=== PATIENT | female | born 1970 | race Caucasian/White ===

== ENCOUNTER 2017-01-01 06:35 | Day surgery (SDC) | payer OTHER ==
[2017-01-01 07:19] VITALS: TEMP 98.6
[2017-01-01] MEDS ORDERED: LIDOCAINE 1% 20 ML VIAL (10MG/ML) FOR IV START INTRADERMA ONE (07:21)
[2017-01-01] MEDS ORDERED: LACTATED RINGERS 1,000 ML IV ONE (07:22)
[2017-01-01 07:34] VITALS: BMI 24.3
[2017-01-01] MEDS ORDERED: MIDAZOLAM 2 MG/2 ML VIAL IV ONE (07:40)
[2017-01-01] MEDS ORDERED: PROPOFOL 10 MG/ML 20 ML VIAL IV ONE (09:03)
[2017-01-01] MEDS ORDERED: LIDOCAINE 1% INJ 10MG/ML (20 ML MDV) ONE (09:03)
--- NOTE | 2017-01-01 09:48 | P.PCN ---
Date of Procedure: 01/01/17 Procedure(s) Performed: Procedure: 1. Esophagogastroduodenoscopy and biopsy. 2. Colonoscopy and biopsy. Preoperative diagnosis: Abdominal pain, change in bowel habits, nausea and bloating and abnormal CT of the abdomen. Postoperative diagnosis: 1. Small sliding hiatal hernia with no obvious esophagitis or complicated reflux disease. 2. Mild antral gastritis. 3. Normal colon and terminal ileum. Preparation: HalfLytely prep. Sedation: Was provided by anesthesia. Brief clinical history: The patient is a 56-year-old female who was evaluated in the office recently by Dr. Tsai for lower abdominal pain and bloating of 1- 2 months duration. The patient was in the emergency room and had a CT of the abdomen and pelvis that showed mild thickening of the colon as well as kidney stones. She was advised to follow-up in the GI office as well as urology. She has occasional diarrhea with 3-4 bowel movements per day and some weight loss. More recently, prior to that office visit, she was having nausea after she eats in addition to intense and worsening pain. The patient had no prior EGD or colonoscopy. This evaluation is scheduled to assess for peptic ulcer disease, celiac disease, inflammatory bowel disease, neoplasia or other pathology. Procedure: With the patient on her left lateral decubitus position and after informed consent and adequate sedation, I passed the Olympus-GIF 160 video upper endoscope through the cricopharyngeus down the esophagus. GE junction was around 38 cm from the incisors and there was a small sliding hiatal hernia. The endoscope was then passed into the stomach which was insufflated with air and inspected in detail including the retroflex view in the cardia. There was some mottling and erythema in the antrum but no ulcers or erosions. Pyloric channel, duodenal bulb, post bulbar area and descending duodenum appeared within normal limits. Because of her symptoms, I obtained multiple biopsies from the duodenum in addition to biopsies from the antrum and esophagus then the endoscope was withdrawn and I proceeded to do colonoscopy. Perianal area did not show any fissures or fistulas. There were no masses felt on digital rectal examination. The Olympus CFQ 160 L video colonoscope was then inserted in the rectum in the usual fashion and advanced to the cecum. I intubated the ileocecal valve and examined the terminal ileum. Terminal ileum and colon appeared healthy with no edema, erythema, friability, ulceration, exudation or spontaneous bleeding. No polyps or tumors were seen or any obvious diverticular disease. I obtained biopsies from the terminal ileum and randomly from the colon then I retroflexed endoscope in the rectum before the endoscope was withdrawn. The patient tolerated the procedure well. Plan: The patient was reassured. Will await pathology results. She will follow -up in the office as planned and we will make additional recommendations based on her course and biopsy results. Would keep you updated on her progress.
[2017-01-01 10:17] VITALS: BP 116/93; PULSE 83; RESP 18
== END 2017-01-01 10:46 | disposition home or self-care (01) ==
LOC: ORWHC2ENDO 06:35
DX: K29.50 Unspecified chronic gastritis without bleeding (principal); K44.9 Diaphragmatic hernia without obstruction or gangrene; R19.7 Diarrhea, unspecified; N20.0 Calculus of kidney; R56.9 Unspecified convulsions; G89.29 Other chronic pain; M54.9 Dorsalgia, unspecified; Z79.1 Long term (current) use of non-steroidal anti-inflammatories (NSAID); Z79.891 Long term (current) use of opiate analgesic; Z79.899 Other long term (current) drug therapy
CPT/HCPCS: 88305; 88342; 45380; 43239; J2250; J2001; J2704

== ENCOUNTER → 2017-01-09 | Outpatient (CLI) | payer OTHER ==
--- NOTE | 2017-01-09 13:16 | XR ---
EXAMINATION TYPE: XR KUB DATE OF EXAM: 01/09/2017 12:27 PM HISTORY: Left flank pain Comparison: 12/21/2016 CT abdomen pelvis Single KUB is submitted for interpretation. Findings: Right renal calculi: None Visualized. Right ureteral calculi: None Visualized. Left renal calculi: 4 mm calculus seen on recent CT is not well visualized possibly related to overl orlin bowel content. Left ureteral calculi: None Visualized. Pelvic calcifications: Multiple pelvic calcifications felt to be compatible with phlebolith formatio n. Bowel gas pattern is unremarkable. No free air. No mass effects. IMPRESSION: 1. No definite renal or ureteral calculus appreciated at this time.
== END ==
LOC: RADXRMAIN 12:09
PROVIDERS: ATTEND Urology
DX: N20.0 Calculus of kidney (principal)
CPT/HCPCS: 74000

== ENCOUNTER 2017-08-10 07:02 | Day surgery (SDC) | payer OTHER ==
[2017-08-09 09:04] VITALS: BMI 27.4
[~2017-08-10 07:02] MED LIST: DEXAMETHASONE SOD PHOSPHATE 10 MG/ML 1 ML VIAL IV ONE; HYDROmorphone 1 MG/ML 1 ML SYRINGE IVP PRN; LACTATED RINGERS 1,000 ML IV SCH; MIDAZOLAM 2 MG/2 ML VIAL IV PRN; ONDANSETRON 4 MG/2 ML VIAL IVP ONE; SCOPOLAMINE 1.5MG/72HR PATCH TRANSDERM ONE; ceFAZolin 1,000 MG in DEXTROSE/WATER 1 50ML.BAG IV ONE
[2017-08-10] MEDS ORDERED: LIDOCAINE 1% 20 ML VIAL (10MG/ML) FOR IV START INTRADERMA ONE (07:34)
[2017-08-10] MEDS ORDERED: SUCCINYLCHOLINE CHLORIDE 100 MG/5 ML SYR IV ONE (08:40)
[2017-08-10] MEDS ORDERED: PROPOFOL 10 MG/ML 20 ML VIAL IV ONE (08:40)
[2017-08-10] MEDS ORDERED: LIDOCAINE 1% INJ 10MG/ML (20 ML MDV) ONE (08:40)
[2017-08-10] MEDS ORDERED: fentaNYL (PF) 50 MCG/ML 2 ML AMP ONE (08:40)
[2017-08-10 10:05] VITALS: TEMP 97.6
[2017-08-10] MEDS ORDERED: MEPERIDINE 50 MG/ML SYRINGE IVP ONE ×2 (10:06→10:32)
--- NOTE | 2017-08-10 10:16 | P.OP ---
Date of Procedure: 08/10/17 Preoperative Diagnosis: Left Renal Calculi Postoperative Diagnosis: Same Procedure(s) Performed: Cystoscopy, left ureteroscopy with stone basketing, left ureteral stent insertion Anesthesia: RUTHA Surgeon: Cipriano Goldstein Estimated Blood Loss (ml): 0 IV fluids (ml): 650 Pathology: none sent Condition: stable Disposition: PACU Indications for Procedure: She is a 47-year-old woman with lumbar disc disease, who previously underwent a spinal fusion. She presented with a three-month history of left flank pain, radiating to the left abdomen. A CT scan showed a 4 mm nonobstructing left renal calculus. I advised her that this is unlikely to be the cause of her pain , though this cannot be determined with certainty. She underwent ureteroscopic removal of the calculus, but she presents back with left flank pain. A CT scan shows several very small left lower pole renal calculi. She will undergo ureteroscopic removal of these calculi, but she clearly understands that this may not be the source of her pain. Operative Findings: Four small left lower pole renal calculi, all removed intact. Description of Procedure: The patient was taken to the operating room and placed in the dorsolithotomy position, with legs supported in Bennie stirrups. The external genitalia was prepped and draped sterilely. The 30 lens was used to introduce the 19-Cameroonian Stortz cystoscopic sheath through the urethra and into the bladder under direct vision. The bladder was examined in its entirety. Both ureteral orifices were normal anatomic location and configuration, and clear urine effluxed from both. The entire bladder was examined. No tumors or foreign bodies were seen. A 0.038 inch Glidewire was passed through the cystoscope. The left ureteral orifice was cannulated, and the Glidewire was advanced up to the left renal pelvis. An 11/13-Cam[place]onian ureteral access catheter was passed over the wire, up to the proximal ureter. The mini flexible ureteroscope was passed through the ureteral access catheter sheath and into the left renal pelvis. Each calyx was examined. Within a lower pole calyx, several small calculi were seen. Using a 1.9-Cam[place]onian parachute basket, each of these small calculi were individually basketed and removed. In total, 4 calculi were removed, the largest measuring approximately 2-3 mm in diameter. In the course of performing this procedure, a mucosal tear was noted within the proximal ureter, distal to the UPJ. It was felt that this was due to the ureteral access catheter sheath. It was obvious that this was not a transmural perforation. Once the calculi were removed, each calyx was examined and no additional calculi were seen. The Glidewire was passed through the ureteroscope into an upper pole calyx. The ureteroscope was withdrawn, along with the ureteral access catheter sheath, and the Glidewire was backloaded into the cystoscope, which was passed into the bladder. A 24 cm , 6-Cameroonian double-J ureteral stent was placed over the wire. Proper stent positioning was verified fluoroscopically and endoscopically. The bladder was emptied and the cystoscope removed. The patient tolerated the procedure well and was taken to the recovery room in stable condition.
[2017-08-10] MEDS ORDERED: ONDANSETRON 4 MG/2 ML VIAL IVP ONE (10:21)
--- NOTE | 2017-08-10 10:21 | FL ---
Fluoroscopy HISTORY: Cystoscopy, kidney stone, stent insertion 28 seconds fluoroscopy time supplied to the referring clinician. 2 intraoperative C-arm images docum ent the procedure. See dictated report from urology.
[2017-08-10] MEDS ORDERED: LACTATED RINGERS 1,000 ML IV ONE (10:39)
[2017-08-10 10:50] VITALS: RESP 18
[2017-08-10] MEDS ORDERED: HYDROcodone/APAP 5-325MG 1 EACH TAB PO ONE (11:12)
[2017-08-10 11:25] VITALS: BP 100/62; PULSE 79
== END 2017-08-10 12:00 | disposition home or self-care (01) ==
LOC: OR 07:02
PROVIDERS: ATTEND Urology
DX: N20.0 Calculus of kidney (principal); N99.71 Accidental puncture and laceration of a genitourinary system organ or structure during a genitourinary system procedure; F17.200 Nicotine dependence, unspecified, uncomplicated; Z79.891 Long term (current) use of opiate analgesic; Z79.899 Other long term (current) drug therapy; Z98.1 Arthrodesis status; Z98.51 Tubal ligation status; Z90.710 Acquired absence of both cervix and uterus; Z84.1 Family history of disorders of kidney and ureter; Z80.1 Family history of malignant neoplasm of trachea, bronchus and lung; Y65.8 Other specified misadventures during surgical and medical care
CPT/HCPCS: 52352; 52332; C2625; C1769; J1100; J2175; J2405; J2001; J3010; J0690; J0330; J2704

== ENCOUNTER 2017-08-11 10:49 | Observation (INO) | payer OTHER ==
[2017-08-11] MEDS ORDERED: SODIUM CHLORIDE 0.9% 500 ML IV STA (11:09)
[2017-08-11] MEDS ORDERED: KETOROLAC 30 MG/ML 1 ML VIAL IVP STA (11:09)
[2017-08-11] MEDS ORDERED: HYDROmorphone 1 MG/ML 1 ML SYRINGE IVP STA (11:09)
[2017-08-11] MEDS ORDERED: RX INFO: IV CONTRAST WAS GIVEN 1 EACH MISC MISCELLANE PRN (11:09)
--- NOTE | 2017-08-11 11:14 | ED ---
General Adult HPI - General Chief complaint: Abdominal Pain Stated complaint: Abd Pain Time Seen by Provider: 08/11/17 10:50 Source: patient, EMS, RN notes reviewed Mode of arrival: EMS - History of Present Illness Initial comments: This is a 47-year-old female who presents emergency department after having had a procedure yesterday which involved her moving for kidney stones and placing a stent. Patient states that the urologist that did this to Dr. Carrion told her that the ureter was perforated. Patient states when she got home she stated the pain has been excruciating ever since she could no longer tolerate it so she came back to the emergency department. Patient denies any fever or chills. Patient states her abdomen is extremely tender whereas normally is not with her kidney stones. Patient denies any vomiting or diarrhea but she is mildly nauseated. Patient denies any chest pain or difficulty breathing. Patient denies any other symptoms at this time. - Related Data Home Medications Medication Instructions Recorded Confirmed Pregabalin [Lyrica] 50 mg PO BID PRN 07/13/17 08/11/17 clonazePAM [KlonoPIN] 0.5 mg PO TID 07/13/17 08/11/17 Hydrocodone/Acetaminophen [[place] 1 - 2 tab PO Q4HR PRN 08/11/17 08/11/17 5-325] Mirtazapine 30 mg PO HS 08/11/17 08/11/17 Allergies Allergy/AdvReac Type Severity Reaction Status Date / Time No Known Allergies Allergy Verified 08/11/17 12:16 Review of Systems ROS Statement: Those systems with pertinent positive or pertinent negative responses have been documented in the HPI. ROS Other: All systems not noted in ROS Statement are negative. Past Medical History Past Medical History: Neurologic Disorder, Renal Disease, Seizure Disorder Additional Past Medical History / Comment(s): Hx vertigo and gait disorder in 2002, hx lower back, neck and shoulder pain, HERNIATED DISCS, HEADACHES-PAIN SHOOTS UP NECK AND INTO SHOULDER BLADES. No seizures in 4 yrs, hx of kidney problems and current KIDNEY STONES. History of Any Multi-Drug Resistant Organisms: None Reported Date of last positivie culture/infection: 2009 MDRO Source:: boil on back of left leg Past Surgical History: Back Surgery, Section, Hysterectomy, Tubal Ligation Additional Past Surgical History / Comment(s): Hx ectopic rupture left ovary and fallopian tube removed, 2 spinal fusions, herniated bowel repair during spine surgery, cervical fusion, urology procedure for kidney problems. Past Anesthesia/Blood Transfusion Reactions: Motion Sickness, Postoperative Nausea & Vomiting (PONV) Additional Past Anesthesia/Blood Transfusion Reaction / Comment(s): Quite extensive N&V with last proceudre that lasted for a few days. Past Psychological History: Anxiety, Depression Smoking Status: Current every day smoker Past Alcohol Use History: None Reported Past Drug Use History: None Reported - Past Family History Mother Family Medical History: Hyperlipidemia Father Family Medical History: Cancer Additional Family Medical History / Comment(s): Father from lung ca 1988 General Exam - General Exam Comments Initial Comments: GENERAL: Patient is well-developed and well-nourished. Patient is nontoxic and well- hydrated and is in moderate distress ENT: Neck is soft and supple. No significant lymphadenopathy is noted. Oropharynx is clear. Moist mucous membranes. Neck has full range of motion without eliciting any pain. T EYES: The sclera were anicteric and conjunctiva were pink and moist. Extraocular movements were intact and pupils were equal round and reactive to light. Eyelids were unremarkable. PULMONARY: Unlabored respirations. Good breath sounds bilaterally. No audible rales rhonchi or wheezing was noted. CARDIOVASCULAR: There is a regular rate and rhythm without any murmurs gallops or rubs. ABDOMEN: Soft and nontender with normal bowel sounds. No palpable organomegaly was noted. There is no palpable pulsatile mass. SKIN: Skin is clear with no lesions or rashes and otherwise unremarkable. NEUROLOGIC: Patient is alert and oriented x3. Cranial nerves II through XII are grossly intact. Motor and sensory are also intact. Normal speech, volume and content. Symmetrical smile. MUSCULOSKELETAL: Normal extremities with adequate strength and full range of motion. LYMPHATICS: No significant lymphadenopathy is noted PSYCHIATRIC: Normal psychiatric evaluation. Course Vital Signs 08/11/17 08/11/17 08/11/17 10:51 11:57 13:00 Temperature 99.1 F 98.7 F Pulse Rate 108 H 62 84 Respiratory 20 18 17 Rate Blood Pressure 138/65 104/55 90/53 O2 Sat by Pulse 93 L 99 97 Oximetry Medical Decision Making - Medical Decision Making I spoke with Dr. Daugherty he agreed to admit the patient for pain control Computed tomography scan showed fluid around the left kidney as well as in the pericolic gutter. Patient continued to be in a fair amount of pain and didn't feel so she can go home. - Lab Data Result diagrams: 08/11/17 11:08/11/17 11:22 Lab Results 08/11/17 08/11/17 08/11/17 Range/Units 11: 11: 12:00 WBC 19.1 H (3.8-10.6) k/uL RBC 4.13 (3.80-5.40) m/uL Hgb 14.0 (11.4-16.0) gm/dL Hct 43.0 (34.0-46.0) % MCV 104.1 H (80.0-100.0) fL MCH 33.8 (25.0-35.0) pg MCHC 32.5 (31.0-37.0) g/dL RDW 13.6 (11.5-15.5) % Plt Count 191 (150-450) k/uL Neutrophils % 87 % Lymphocytes % 7 % Monocytes % 4 % Eosinophils % 1 % Basophils % 0 % Neutrophils # 16.7 H (1.3-7.7) k/uL Lymphocytes # 1.4 (1.0-4.8) k/uL Monocytes # 0.7 (0-1.0) k/uL Eosinophils # 0.2 (0-0.7) k/uL Basophils # 0.0 (0-0.2) k/uL Macrocytosis Slight Sodium 137 (137-145) mmol/L Potassium 4.0 (3.5-5.1) mmol/L Chloride 104 (98-107) mmol/L Carbon Dioxide 26 (22-30) mmol/L Anion Gap 7 mmol/L BUN 12 (7-17) mg/dL Creatinine 1.20 H (0.52-1.04) mg/dL Est GFR (MDRD) Af Amer 59 (>60 ml/min/1.73 sqM) Est GFR (MDRD) Non-Af 48 (>60 ml/min/1.73 sqM) Glucose 111 H (74-99) mg/dL Calcium 9.3 (8.4-10.2) mg/dL Total Bilirubin 0.6 (0.2-1.3) mg/dL AST 16 (14-36) U/L ALT 30 (9-52) U/L Alkaline Phosphatase 46 (38-126) U/L Total Protein 6.9 (6.3-8.2) g/dL Albumin 4.1 (3.5-5.0) g/dL Amylase <30 L (30-110) U/L Lipase 42 (23-300) U/L Urine Color Yellow Urine Appearance Cloudy H (Clear) Urine pH 5.5 (5.0-8.0) Ur Specific [place] 1.020 (1.001-1.035) Urine Protein Trace H (Negative) Urine Glucose (UA) Negative (Negative) Urine Ketones Negative (Negative) Urine Blood Moderate H (Negative) Urine Nitrite Negative (Negative) Urine Bilirubin Negative (Negative) Urine Urobilinogen <2.0 (<2.0) mg/dL Ur Leukocyte Esterase Moderate H (Negative) Urine RBC 37 H (0-5) /hpf Urine WBC 12 H (0-5) /hpf Ur Squamous Epith Cells 6 H (0-4) /hpf Urine Bacteria Rare H (None) /hpf Urine Mucus Rare H (None) /hpf Disposition Clinical Impression: Intractable pain, Intra-abdominal fluid Disposition: ADMITTED IP TO THIS HOSP Referrals: Zach Washington MD [Primary Care Provider] - 1-2 days Time of Disposition: 13:39
[2017-08-11 11:32] LABS: Basophils % (A) 0 %; CH 33.8; CHCM 32.6; Eosinophils # (A) 0.2 k/uL (0-0.7); Eosinophils % (A) 1 %; HDW 2.02; Luc # (Auto) 0.09; Luc % (Auto) 1; Lymphocytes # (A) 1.4 k/uL (1.0-4.8); Lymphocytes % (A) 7 %; MCH 33.8 pg (25.0-35.0); MCHC 32.5 g/dL (31.0-37.0); MCV 104.1 fL (80.0-100.0); Macrocytosis Slight; Mean Platelet Volume 7.5; Monocytes # (A) 0.7 k/uL (0-1.0); Monocytes % (A) 4 %; Neutrophils # (A) 16.7 k/uL (1.3-7.7); Neutrophils % (A) 87 %; RBC 4.13 m/uL (3.80-5.40); RDW 13.6 % (11.5-15.5); WBC 19.1 k/uL (3.8-10.6); WBC (Perox) 19.23
[2017-08-11] MEDS ORDERED: ONDANSETRON 4 MG/2 ML VIAL IVP STA (11:42)
[2017-08-11 11:45] LABS: ALT 30 U/L (9-52); AST 16 U/L (14-36); Alkaline Phosphatase 46 U/L (38-126); Amylase <30 U/L (30-110); Anion Gap 7 mmol/L; Blood Urea Nitrogen 12 mg/dL (7-17); Calcium 9.3 mg/dL (8.4-10.2); Carbon Dioxide 26 mmol/L (22-30); Chloride 104 mmol/L (98-107); Glucose 111 mg/dL (74-99); Non-African American GFR(MDRD) 48 (>60 ml/min/1.73 sqM); Sodium 137 mmol/L (137-145); Total Bilirubin 0.6 mg/dL (0.2-1.3); Total Protein 6.9 g/dL (6.3-8.2)
[2017-08-11 12:18] LABS: Appearance,Urine Cloudy (Clear); Bacteria,Urine Rare /hpf; Bilirubin,Urine Negative (Negative); Glucose,Urine (UA) Negative (Negative); Ketones,Urine Negative (Negative); Leukocyte Esterase,Urine Moderate (Negative); Mucus,Urine Rare /hpf; Nitrite,Urine Negative (Negative); PH, Urine 5.5 (5.0-8.0); Particle Count 3484; Protein,Urine Trace (Negative); RBC,Urine 37 /hpf (0-5); Squamous Epithelial Cell,Urine 6 /hpf (0-4); UA Billing (MACRO vs. MICRO) MICRO; Urobilinogen,Urine <2.0 mg/dL (<2.0); WBC,Urine 12 /hpf (0-5)
--- NOTE | 2017-08-11 12:45 | CT ---
EXAMINATION TYPE: CT abdomen pelvis w con DATE OF EXAM: 08/11/2017 REFERENCE: Previous study dated 07/14/1970. HISTORY: abdominal pain HISTORY: Abdomen Pain REFERENCE: NONE CT DLP: 794.2 mGy Automated exposure control for dose reduction was used. TECHNIQUE: Helical acquisition through the abdomen and pelvis was obtained following the oral ingesti on of without Oral Contrast and following intravenous administration of 80 mL of Visipaque 320. The d santiago was reformatted in axial, coronal and sagittal projections. FINDINGS: There is minimal atelectasis at the left lung base. There is no pleural or pericardial flu id. The heart is not enlarged. Within the abdomen, the liver is prominent measuring 19.3 cm. This is largely due to a prominent Ried el's lobe. The spleen and gallbladder are normal. Both adrenal glands are normal. The right kidney is normal. There is a double-J stent in place on the left. There is marked inflammat ory change as well as perinephric fluid about the left kidney and extending down the left paracolic g utter. The kidney does demonstrate normal function. The pancreas appears unremarkable. There is no significant retroperitoneal, iliac or inguinal adenopathy. The bladder is collapsed. The uterus and ovaries are not visualized. There is a moderate amount of fr ee fluid within the pelvis. There is no significant diverticular change noted do not see radiographic evidence of diverticulitis. The appendix is not visualized with certainty. Small bowel loops are of normal caliber. No free air is seen. There is been a previous anterior fusion at L5-S1. No bony destructive lesion is seen. IMPRESSION: MODERATE EDEMATOUS CHANGE AND FREE FLUID ABOUT THE LEFT KIDNEY WITH FLUID ALSO TRACKING D OWN THE PARACOLIC GUTTER ON THE LEFT INTO THE PELVIS. 2. DOUBLE-J STENTS IN NORMAL POSITION. 3. MILD PROMINENCE OF THE LIVER. 4. POSTSURGICAL CHANGES WITHIN THE SPINE.
[2017-08-11] MEDS ORDERED: SODIUM CHLORIDE 0.9% 1,000 ML IV ONE (13:39)
[2017-08-11] MEDS ORDERED: CIPROFLOXACIN HCL 500 MG TAB PO STA (13:42)
[2017-08-11 14:57] VITALS: BMI 27.4
[2017-08-11] MEDS ORDERED: PREGABALIN 50 MG CAP PO PRN (15:54)
[2017-08-11] MEDS: clonazePAM 0.5 MG TAB PO SCH ×2 (16:34→20:19)
[2017-08-11] MEDS: KETOROLAC 30 MG/ML 1 ML VIAL IVP SCH (17:40)
[2017-08-11] MEDS: HYDROmorphone 1 MG/ML 1 ML SYRINGE IVP PRN (20:20)
[2017-08-11] MEDS ORDERED: MIRTAZAPINE 15 MG TAB PO SCH (21:00)
[2017-08-11] MEDS: CIPROFLOXACIN HCL 500 MG TAB PO SCH (22:18)
[2017-08-12] MEDS: KETOROLAC 30 MG/ML 1 ML VIAL IVP SCH ×3 (03:02→12:23)
[2017-08-12] MEDS: HYDROmorphone 1 MG/ML 1 ML SYRINGE IVP PRN (05:12)
[2017-08-12 08:12] VITALS: BP 98/53; PULSE 88; RESP 16; TEMP 98
[2017-08-12] MEDS: clonazePAM 0.5 MG TAB PO SCH (08:28)
[2017-08-12] MEDS: CIPROFLOXACIN HCL 500 MG TAB PO SCH (09:22)
[2017-08-12] MEDS ORDERED: HYDROcodone/APAP 7.5-325MG 1 EACH TAB PO PRN (10:19)
--- NOTE | 2017-08-12 10:23 | P.GSHP ---
History of Present Illness H&P Date: 08/12/17 The patient is a 47-year-old female who underwent cystoscopy left ureteroscopy with laser lithotripsy to ureteral stones late last week by . Apparently there was a ureteral perforation. This however was managed with a stent which is the usual mechanism to handle this situation. She came into the emergency room with abdominal discomfort. She had a computed tomography scan that identified periureteral perirenal and pericolic gutter fluid. Because of abdominal discomfort and an elevated white count was elected to place her in the hospital for observation. He is afebrile. Her vital signs are otherwise stable. - Gastrointestinal Gastrointestinal: Reports abdominal pain, Reports bloating - Genitourinary (Female) Genitourinary: Reports as per HPI - Musculoskeletal Musculoskeletal: Reports low back pain Past Medical History Past Medical History: Neurologic Disorder, Renal Disease, Seizure Disorder Additional Past Medical History / Comment(s): Hx vertigo and gait disorder in 2002, hx lower back, neck and shoulder pain, HERNIATED DISCS, HEADACHES-PAIN SHOOTS UP NECK AND INTO SHOULDER BLADES. No seizures in 4 yrs, hx of kidney problems and KIDNEY STONES. History of Any Multi-Drug Resistant Organisms: None Reported Date of last positivie culture/infection: 2009 MDRO Source:: boil on back of left leg Past Surgical History: Back Surgery, Section, Hysterectomy, Tubal Ligation Additional Past Surgical History / Comment(s): Hx ectopic rupture left ovary and fallopian tube removed, 2 spinal fusions, herniated bowel repair during spine surgery, cervical fusion, urology procedure for kidney problems. Past Anesthesia/Blood Transfusion Reactions: Motion Sickness, Postoperative Nausea & Vomiting (PONV) Additional Past Anesthesia/Blood Transfusion Reaction / Comment(s): Quite extensive N&V with last proceudre that lasted for a few days. Past Psychological History: Anxiety, Depression Smoking Status: Current some day smoker Past Alcohol Use History: None Reported Additional Past Alcohol Use History / Comment(s): Has smoked 1/4 PPD or less on and off since 2000. Past Drug Use History: None Reported Additional Drug Use History / Comment(s): Medical marijuana- quit using 04/05/16 was only using liquid or caplet or lotion that was applied to where it hurt.pt has never has smoked it. - Past Family History Mother Family Medical History: Hyperlipidemia Father Family Medical History: Cancer Additional Family Medical History / Comment(s): Father from lung ca 1988 Medications and Allergies Home Medications Medication Instructions Recorded Confirmed Type Pregabalin [Lyrica] 50 mg PO BID PRN 07/13/17 08/11/17 History clonazePAM [KlonoPIN] 0.5 mg PO TID 07/13/17 08/11/17 History Hydrocodone/Acetaminophen [[place] 1 - 2 tab PO Q4HR PRN 08/11/17 08/11/17 History 5-325] Mirtazapine 30 mg PO HS 08/11/17 08/11/17 History Hydrocodone/Acetaminophen [[place] 1 each PO Q4HR PRN #20 tab 08/12/17 Rx 7.5-325] Allergies Allergy/AdvReac Type Severity Reaction Status Date / Time No Known Allergies Allergy Verified 08/11/17 12:16 Surgical - Exam Vital Signs Temp Pulse Resp BP Pulse Ox 99.1 F 108 H 20 138/65 93 L 08/11/17 10:51 08/11/17 10:51 08/11/17 10:51 08/11/17 10:51 08/11/17 10:51 - General well developed, well nourished, moderate pain - Eyes PERRL - ENT no hearing loss - Neck trachea midline - Respiratory normal expansion - Cardiovascular Rhythm: regular - Abdomen The patient has some abdominal distention due to an ileus Abdomen: tender - Integumentary no rash, no growths - Neurologic normal coordination - Musculoskeletal normal posture - Psychiatric oriented to time, oriented to person, oriented to place, speech is normal, memory intact Results - Labs 08/11/17 11:22 08/11/17 11:22 Abnormal Lab Results - Last 24 Hours (Table) 08/11/17 08/11/17 08/11/17 Range/Units 11:22 11:22 12:00 WBC 19.1 H (3.8-10.6) k/uL MCV 104.1 H (80.0-100.0) fL Neutrophils # 16.7 H (1.3-7.7) k/uL Creatinine 1.20 H (0.52-1.04) mg/dL Glucose 111 H (74-99) mg/dL Amylase <30 L (30-110) U/L Urine Appearance Cloudy H (Clear) Urine Protein Trace H (Negative) Urine Blood Moderate H (Negative) Ur Leukocyte Esterase Moderate H (Negative) Urine RBC 37 H (0-5) /hpf Urine WBC 12 H (0-5) /hpf Ur Squamous Epith Cells 6 H (0-4) /hpf Urine Bacteria Rare H (None) /hpf Urine Mucus Rare H (None) /hpf Diabetes panel 08/11/17 Range/Units 11:22 Sodium 137 (137-145) mmol/L Potassium 4.0 (3.5-5.1) mmol/L Chloride 104 (98-107) mmol/L Carbon Dioxide 26 (22-30) mmol/L BUN 12 (7-17) mg/dL Creatinine 1.20 H (0.52-1.04) mg/dL Glucose 111 H (74-99) mg/dL Calcium 9.3 (8.4-10.2) mg/dL AST 16 (14-36) U/L ALT 30 (9-52) U/L Alkaline Phosphatase 46 (38-126) U/L Total Protein 6.9 (6.3-8.2) g/dL Albumin 4.1 (3.5-5.0) g/dL Calcium panel 08/11/17 Range/Units 11:22 Calcium 9.3 (8.4-10.2) mg/dL Albumin 4.1 (3.5-5.0) g/dL Pituitary panel 08/11/17 Range/Units 11:22 Sodium 137 (137-145) mmol/L Potassium 4.0 (3.5-5.1) mmol/L Chloride 104 (98-107) mmol/L Carbon Dioxide 26 (22-30) mmol/L BUN 12 (7-17) mg/dL Creatinine 1.20 H (0.52-1.04) mg/dL Glucose 111 H (74-99) mg/dL Calcium 9.3 (8.4-10.2) mg/dL Adrenal panel 08/11/17 Range/Units 11:22 Sodium 137 (137-145) mmol/L Potassium 4.0 (3.5-5.1) mmol/L Chloride 104 (98-107) mmol/L Carbon Dioxide 26 (22-30) mmol/L BUN 12 (7-17) mg/dL Creatinine 1.20 H (0.52-1.04) mg/dL Glucose 111 H (74-99) mg/dL Calcium 9.3 (8.4-10.2) mg/dL Total Bilirubin 0.6 (0.2-1.3) mg/dL AST 16 (14-36) U/L ALT 30 (9-52) U/L Alkaline Phosphatase 46 (38-126) U/L Total Protein 6.9 (6.3-8.2) g/dL Albumin 4.1 (3.5-5.0) g/dL Assessment and Plan Assessment: Impression: Postoperative ileus secondary to ureteroscopy, sp stone removal, stent placement, urine extravasation with urine irritation. Chronic abdominal and back pain due to low back problems. Recommendations the patient was admitted for IV fluids parenteral narcotics and observation. The computed tomography scan did show perirenal edema, urine and paracolic gutter urine. This is irritating the bowel causing a secondary ileus. This will resolve in time. We will treat with IV fluids and parental pain medication. Her pain threshold is diminished due to her chronic pain medication use for her back problems.
--- NOTE | 2017-08-21 12:53 | P.DS ---
Providers Date of admission: 08/11/17 13:39 Attending physician: Casey Tolliver Primary care physician: Zach Padmini [facility] Course: The patient was admitted to the hosptal due to post op pain and ileus from a ureteral stone manipulation by Dr Goldstein A stent was placed and in good position HEr pain subsided such that she was discharged homelater in the day SHe has pain meds at home She will be on a regular diet She has been instructed to fu with Dr Goldstein Her condition is good Patient Condition at Discharge: Good Plan - Discharge Summary Discharge Rx Participant: Yes New Discharge Prescriptions: No Action Pregabalin [Lyrica] 50 mg PO BID PRN PRN Reason: NERVE PAIN clonazePAM [KlonoPIN] 0.5 mg PO TID Mirtazapine 30 mg PO HS Hydrocodone/Acetaminophen [[place] 5-325] 1 - 2 tab PO Q4HR PRN PRN Reason: Pain Hydrocodone/Acetaminophen [[place] 7.5-325] 1 tab PO Q4HR PRN PRN Reason: Pain Control Discharge Medication List Pregabalin [Lyrica] 50 mg PO BID PRN 07/13/17 [History] clonazePAM [KlonoPIN] 0.5 mg PO TID 07/13/17 [History] Hydrocodone/Acetaminophen [[place] 5-325] 1 - 2 tab PO Q4HR PRN 08/11/17 [History] Mirtazapine 30 mg PO HS 08/11/17 [History] Hydrocodone/Acetaminophen [[place] 7.5-325] 1 tab PO Q4HR PRN 08/16/17 [History] Follow up Appointment(s)/Referral(s): Cipriano Goldstein MD [STAFF PHYSICIAN] - 1 Week Zach Washington MD [Primary Care Provider] - 1-2 days Activity/Diet/Wound Care/Special Instructions: pt is to call Dr. Goldstein tomorrow, 08/13/17 for follow up appt. Discharge Disposition: HOME SELF-CARE
== END 2017-08-12 13:56 | disposition home or self-care (01) ==
LOC: EC 10:49 → 3OBS 13:39 → 3SUR 18:32 → 3OBS 08-12 07:00
PROVIDERS: ADMIT Urology; ATTEND Urology
DX: K91.89 Other postprocedural complications and disorders of digestive system (principal); K56.7 Ileus, unspecified; G89.18 Other acute postprocedural pain; N28.9 Disorder of kidney and ureter, unspecified; Z87.442 Personal history of urinary calculi; G40.909 Epilepsy, unspecified, not intractable, without status epilepticus; R29.90 Unspecified symptoms and signs involving the nervous system; F17.200 Nicotine dependence, unspecified, uncomplicated; M54.5 Low back pain; G89.29 Other chronic pain; F41.9 Anxiety disorder, unspecified; F32.9 Major depressive disorder, single episode, unspecified; Z79.899 Other long term (current) drug therapy
CPT/HCPCS: 99285 ×2; 96374 ×2; 96375 ×2; 96361 ×5; 96376 ×2; 36415; 80053; 82150; 83690; 85025; 81001; 74177; G0378 ×3; Q9967; J2405; J1885 ×2; J1170 ×2

== ENCOUNTER 2017-08-16 08:58 | Emergency (ER) | payer OTHER ==
[2017-08-16] MEDS ORDERED: SODIUM CHLORIDE 0.9% 1,000 ML IV STA ×2 (09:12)
[2017-08-16 09:44] LABS: Basophils % (A) 1 %; CH 33.2; Eosinophils # (A) 0.3 k/uL (0-0.7); Eosinophils % (A) 4 %; HDW 2.13; HGB 12.7 gm/dL (11.4-16.0); Luc # (Auto) 0.09; Luc % (Auto) 1; Lymphocytes # (A) 1.2 k/uL (1.0-4.8); Lymphocytes % (A) 14 %; MCH 33.9 pg (25.0-35.0); MCHC 32.5 g/dL (31.0-37.0); MCV 104.3 fL (80.0-100.0); Macrocytosis Slight; Mean Platelet Volume 7.3; Monocytes # (A) 0.4 k/uL (0-1.0); Monocytes % (A) 4 %; Neutrophils # (A) 6.3 k/uL (1.3-7.7); Neutrophils % (A) 76 %; RBC 3.74 m/uL (3.80-5.40); RDW 13.3 % (11.5-15.5); WBC 8.2 k/uL (3.8-10.6); WBC (Perox) 8.48
--- NOTE | 2017-08-16 09:52 | ED ---
General Adult HPI - General Chief complaint: Abdominal Pain Stated complaint: Abd Pain Time Seen by Provider: 08/16/17 09:04 Source: patient, RN notes reviewed, old records reviewed Mode of arrival: EMS Limitations: no limitations - History of Present Illness Initial comments: Patient 47-year-old female who presents emergency room today by EMS, with chief complaint of increased abdominal pain and left flank pain. She does admit to a history of kidney stone had stent placed approximately 1 week ago. She does admit that she had to come back after the stent and was admitted for an infection. Patient states that she's been having increasing abdominal pain. Does admit some increased abdominal distention. States she feels that her fingers are more swollen as her ring's titer. Patient denies any other complaints currently. Patient denies any recent fever, chills, shortness of breath, chest pain, nausea or vomiting, numbness or tingling, dysuria or hematuria, constipation or diarrhea, headaches or visual changes, or any other complaints. - Related Data Home Medications Medication Instructions Recorded Confirmed Pregabalin [Lyrica] 50 mg PO BID PRN 07/13/17 08/16/17 clonazePAM [KlonoPIN] 0.5 mg PO TID 07/13/17 08/16/17 Hydrocodone/Acetaminophen [[place] 1 - 2 tab PO Q4HR PRN 08/11/17 08/16/17 5-325] Mirtazapine 30 mg PO HS 08/11/17 08/16/17 Hydrocodone/Acetaminophen [[place] 1 tab PO Q4HR PRN 08/16/17 08/16/17 7.5-325] Allergies Allergy/AdvReac Type Severity Reaction Status Date / Time No Known Allergies Allergy Verified 08/16/17 09:34 Review of Systems ROS Statement: Those systems with pertinent positive or pertinent negative responses have been documented in the HPI. ROS Other: All systems not noted in ROS Statement are negative. Past Medical History Past Medical History: Neurologic Disorder, Renal Disease, Seizure Disorder Additional Past Medical History / Comment(s): Hx vertigo and gait disorder in 2002, hx lower back, neck and shoulder pain, HERNIATED DISCS, HEADACHES-PAIN SHOOTS UP NECK AND INTO SHOULDER BLADES. No seizures in 4 yrs, hx of kidney problems and KIDNEY STONES. History of Any Multi-Drug Resistant Organisms: None Reported Date of last positivie culture/infection: 2009 MDRO Source:: boil on back of left leg Past Surgical History: Back Surgery, Section, Hysterectomy, Tubal Ligation Additional Past Surgical History / Comment(s): Hx ectopic rupture left ovary and fallopian tube removed, 2 spinal fusions, herniated bowel repair during spine surgery, cervical fusion, urology procedure for kidney problems. Past Anesthesia/Blood Transfusion Reactions: Motion Sickness, Postoperative Nausea & Vomiting (PONV) Additional Past Anesthesia/Blood Transfusion Reaction / Comment(s): Quite extensive N&V with last proceudre that lasted for a few days. Past Psychological History: Anxiety, Depression Smoking Status: Current some day smoker Past Alcohol Use History: None Reported Past Drug Use History: None Reported - Past Family History Mother Family Medical History: Hyperlipidemia Father Family Medical History: Cancer Additional Family Medical History / Comment(s): Father from lung ca 1988 General Exam - General Exam Comments Initial Comments: General: The patient is awake and alert, in mild distress. Eye: Pupils are equal, round and reactive to light, extra-ocular movements are intact. No nystagmus. There is normal conjunctiva bilaterally. No signs of icterus. Ears, nose, mouth and throat: There are moist mucous membranes and no oral lesions. Neck: The neck is supple, there is no tenderness or JVD. Cardiovascular: There is a regular rate and rhythm. No murmur, rub or gallop is appreciated. Respiratory: Lungs are clear to auscultation, respirations are non-labored, breath sounds are equal. No wheezes, stridor, rales, or rhonchi. Gastrointestinal: Patient's abdomen appears distended on exam. It is soft. There is tenderness left side both upper and lower quadrants. Left-sided CVA tenderness. No rebound tenderness. No guarding. Musculoskeletal: Normal ROM, no tenderness. Strength 5/5. Sensation intact. Pulses equal bilaterally 2+. Neurological: A&O x 3. CN II-XII intact, There are no obvious motor or sensory deficits. Coordination appears grossly intact. Speech is normal. Skin: Skin is warm and dry and no rashes or lesions are noted. Psychiatric: Cooperative, appropriate mood & affect, normal judgment. Limitations: no limitations Course Vital Signs 08/16/17 08/16/17 08/16/17 09:11 09:58 12:16 Temperature 98.9 F 98.2 F 98.1 F Pulse Rate 104 H 98 88 Respiratory 18 16 18 Rate Blood Pressure 132/75 124/68 121/73 O2 Sat by Pulse 100 98 97 Oximetry Medical Decision Making - Medical Decision Making Patient reexamined at this time shows no signs of distress. Patient's labs been reviewed. Ultrasound shows no acute abnormalities. Case was discussed in detail with attending physician Dr. Mora. At this time patient's feeling much better after Toradol was given here in the emergency room. She states she's not been using anti-inflammatories at home. She is advised she may use her ibuprofen off 7 with her [place]. Advised to follow-up urologist in the next 1-2 days. Patient states she would like to be discharged home she is more comfortable there. Patient discharged at this time. Return if any symptoms increase worsen or for any other concerns. - Lab Data Result diagrams: 08/16/17 09:30 08/16/17 09:30 Lab Results 08/16/17 08/16/17 08/16/17 Range/Units 09:30 09:30 09:30 WBC 8.2 (3.8-10.6) k/uL RBC 3.74 L (3.80-5.40) m/uL Hgb 12.7 (11.4-16.0) gm/dL Hct 39.0 (34.0-46.0) % MCV 104.3 H (80.0-100.0) fL MCH 33.9 (25.0-35.0) pg MCHC 32.5 (31.0-37.0) g/dL RDW 13.3 (11.5-15.5) % Plt Count 224 (150-450) k/uL Neutrophils % 76 % Lymphocytes % 14 % Monocytes % 4 % Eosinophils % 4 % Basophils % 1 % Neutrophils # 6.3 (1.3-7.7) k/uL Lymphocytes # 1.2 (1.0-4.8) k/uL Monocytes # 0.4 (0-1.0) k/uL Eosinophils # 0.3 (0-0.7) k/uL Basophils # 0.0 (0-0.2) k/uL Macrocytosis Slight PT (9.0-12.0) sec INR (<1.2) APTT (22.0-30.0) sec Sodium 139 (137-145) mmol/L Potassium 4.8 (3.5-5.1) mmol/L Chloride 108 H (98-107) mmol/L Carbon Dioxide 24 (22-30) mmol/L Anion Gap 7 mmol/L BUN 6 L (7-17) mg/dL Creatinine 0.70 (0.52-1.04) mg/dL Est GFR (MDRD) Af Amer >60 (>60 ml/min/1.73 sqM) Est GFR (MDRD) Non-Af >60 (>60 ml/min/1.73 sqM) Glucose 85 (74-99) mg/dL Plasma Lactic Acid Dane 1.1 (0.7-2.0) mmol/L Calcium 8.9 (8.4-10.2) mg/dL Total Bilirubin 0.3 (0.2-1.3) mg/dL AST 17 (14-36) U/L ALT 34 (9-52) U/L Alkaline Phosphatase 53 (38-126) U/L Total Protein 6.0 L (6.3-8.2) g/dL Albumin 3.4 L (3.5-5.0) g/dL Amylase <30 L (30-110) U/L Lipase 24 (23-300) U/L Urine Color Urine Appearance (Clear) Urine pH (5.0-8.0) Ur Specific [place] (1.001-1.035) Urine Protein (Negative) Urine Glucose (UA) (Negative) Urine Ketones (Negative) Urine Blood (Negative) Urine Nitrite (Negative) Urine Bilirubin (Negative) Urine Urobilinogen (<2.0) mg/dL Ur Leukocyte Esterase (Negative) Urine RBC (0-5) /hpf Urine WBC (0-5) /hpf Ur Squamous Epith Cells (0-4) /hpf 08/16/17 08/16/17 Range/Units 09:30 09:30 WBC (3.8-10.6) k/uL RBC (3.80-5.40) m/uL Hgb (11.4-16.0) gm/dL Hct (34.0-46.0) % MCV (80.0-100.0) fL MCH (25.0-35.0) pg MCHC (31.0-37.0) g/dL RDW (11.5-15.5) % Plt Count (150-450) k/uL Neutrophils % % Lymphocytes % % Monocytes % % Eosinophils % % Basophils % % Neutrophils # (1.3-7.7) k/uL Lymphocytes # (1.0-4.8) k/uL Monocytes # (0-1.0) k/uL Eosinophils # (0-0.7) k/uL Basophils # (0-0.2) k/uL Macrocytosis PT 10.1 (9.0-12.0) sec INR 1.0 (<1.2) APTT 24.5 (22.0-30.0) sec Sodium (137-145) mmol/L Potassium (3.5-5.1) mmol/L Chloride (98-107) mmol/L Carbon Dioxide (22-30) mmol/L Anion Gap mmol/L BUN (7-17) mg/dL Creatinine (0.52-1.04) mg/dL Est GFR (MDRD) Af Amer (>60 ml/min/1.73 sqM) Est GFR (MDRD) Non-Af (>60 ml/min/1.73 sqM) Glucose (74-99) mg/dL Plasma Lactic Acid Dane (0.7-2.0) mmol/L Calcium (8.4-10.2) mg/dL Total Bilirubin (0.2-1.3) mg/dL AST (14-36) U/L ALT (9-52) U/L Alkaline Phosphatase (38-126) U/L Total Protein (6.3-8.2) g/dL Albumin (3.5-5.0) g/dL Amylase (30-110) U/L Lipase (23-300) U/L Urine Color Colorless Urine Appearance Clear (Clear) Urine pH 7.5 (5.0-8.0) Ur Specific [place] 1.002 (1.001-1.035) Urine Protein Negative (Negative) Urine Glucose (UA) Negative (Negative) Urine Ketones Negative (Negative) Urine Blood Small H (Negative) Urine Nitrite Negative (Negative) Urine Bilirubin Negative (Negative) Urine Urobilinogen <2.0 (<2.0) mg/dL Ur Leukocyte Esterase Trace H (Negative) Urine RBC 1 (0-5) /hpf Urine WBC 2 (0-5) /hpf Ur Squamous Epith Cells 1 (0-4) /hpf Disposition Clinical Impression: Abdominal pain Disposition: HOME SELF-CARE Condition: Good Instructions: Abdominal Pain (ED) Additional Instructions: Please follow up with family doctor and urologist over the next 1-2 days. Please return here to the emergency room for any symptoms increase worsen or for any other concerns. Referrals: Zach Washington MD [Primary Care Provider] - 1-2 days Casey Tolliver MD [STAFF PHYSICIAN] - 1-2 days Time of Disposition: 13:03
[2017-08-16 09:53] LABS: Appearance,Urine Clear (Clear); Bilirubin,Urine Negative (Negative); Glucose,Urine (UA) Negative (Negative); Ketones,Urine Negative (Negative); Leukocyte Esterase,Urine Trace (Negative); Nitrite,Urine Negative (Negative); PH, Urine 7.5 (5.0-8.0); Particle Count 2293; Protein,Urine Negative (Negative); RBC,Urine 1 /hpf (0-5); Specific Gravity,Urine 1.002 (1.001-1.035); Squamous Epithelial Cell,Urine 1 /hpf (0-4); UA Billing (MACRO vs. MICRO) MICRO; Urobilinogen,Urine <2.0 mg/dL (<2.0); WBC,Urine 2 /hpf (0-5)
[2017-08-16 09:54] LABS: ALT 34 U/L (9-52); AST 17 U/L (14-36); Alkaline Phosphatase 53 U/L (38-126); Amylase <30 U/L (30-110); Anion Gap 7 mmol/L; Blood Urea Nitrogen 6 mg/dL (7-17); Calcium 8.9 mg/dL (8.4-10.2); Carbon Dioxide 24 mmol/L (22-30); Chloride 108 mmol/L (98-107); Glucose 85 mg/dL (74-99); Non-African American GFR(MDRD) >60 (>60 ml/min/1.73 sqM); Potassium 4.8 mmol/L (3.5-5.1); Sodium 139 mmol/L (137-145); Total Bilirubin 0.3 mg/dL (0.2-1.3)
[2017-08-16] MEDS ORDERED: HYDROmorphone 1 MG/ML 1 ML SYRINGE IVP STA (09:54)
[2017-08-16 10:03] LABS: Partial Thromboplastin Time 24.5 sec (22.0-30.0); Prothrombin Time 10.1 sec (9.0-12.0)
--- NOTE | 2017-08-16 10:41 | XR ---
EXAMINATION TYPE: XR KUB DATE OF EXAM: 08/16/2017 COMPARISON: 07/13/2017 INDICATION: Pain increased surgery last week TECHNIQUE: Single view abdomen frontal projection FINDINGS: There is normal air within the stomach. Some small amount of bowel gas is in the right lower quadrant . There is a catheter on the left from the level of the urinary bladder to the level of the renal pelvi s. Psoas margins are normal. Liver appears prominent. No renal stones are identified. Ureteral stones are not identified. Postsurgical changes are within t he L4-5 region. IMPRESSION: 1. Left ureteral stent. Renal stones are not identified.
--- NOTE | 2017-08-16 11:47 | US ---
EXAMINATION TYPE: US abdomen comp/pelvis limited DATE OF EXAM: 08/16/2017 COMPARISON: NONE CLINICAL HISTORY: Pain. Epigastric pain, nausea, bloating, left renal stent EXAM MEASUREMENTS: Liver Length: 17.8 cm Gallbladder Wall: 0.3 cm CBD: 0.6 cm Spleen: 9.4 cm Right Kidney: 11.5 x 3.8 x 5.2 cm Left Kidney: 11.8 x 5.6 x 5.4 cm Pancreas: visualized portions appear wnl Liver: upper limits of normal some mild fatty change may be present. Gallbladder: no evidence of stones CBD: wnl Spleen: wnl Right Kidney: no evidence of hydronephrosis or mass Left Kidney: possible stent visualized lower Upper IVC: wnl Abd Aorta: distal/bifurcation obscured by overlying bowel content Bladder: stent visualized Bilateral Jets Seen no Incidental finding: right ovarian cystic area = 2.2 x 2.2 x 2.3cm Urinary bladder is sonolucent. Posterior wall is normal. Stent present on the left. IMPRESSION: 1. Unremarkable abdomen. 2. Right ovarian cyst
[2017-08-16] MEDS ORDERED: ONDANSETRON 4 MG/2 ML VIAL IVP STA (12:02)
[2017-08-16] MEDS ORDERED: KETOROLAC 30 MG/ML 1 ML VIAL IVP STA (12:12)
[2017-08-16 13:31] VITALS: BP 116/63; PULSE 75; RESP 15; TEMP 97.7
== END 2017-08-16 13:30 | disposition home or self-care (01) ==
LOC: EC 08:58
DX: R10.12 Left upper quadrant pain (principal); R10.32 Left lower quadrant pain; R14.0 Abdominal distension (gaseous); F32.9 Major depressive disorder, single episode, unspecified; G40.909 Epilepsy, unspecified, not intractable, without status epilepticus; F17.200 Nicotine dependence, unspecified, uncomplicated; Z87.442 Personal history of urinary calculi; Z79.899 Other long term (current) drug therapy
CPT/HCPCS: 99285; 96374; 96375 ×2; 96361 ×4; 36415; 80053; 82150; 83605; 83690; 85025; 85610; 85730; 81001; 87086; 74000; 76700; 76857; J2405; J1885; J1170

== ENCOUNTER 2021-08-08 08:40 | Emergency (ER) | payer MEDICARE, OTHER ==
[2021-08-08] MEDS ORDERED: SODIUM CHLORIDE 0.9% 500 ML 500 ML IV STA (08:55)
--- NOTE | 2021-08-08 09:06 | ED ---
General Adult HPI - General Chief complaint: Abdominal Pain Stated complaint: Abdominal Pain Time Seen by Provider: 08/08/21 08:45 Source: patient, EMS, RN notes reviewed, old records reviewed Mode of arrival: EMS Limitations: no limitations - History of Present Illness Initial comments: This a 51-year-old female presents emergency Department with a 10 day history of abdominal pain decreased bowel movements and has not passed any gas or had a bowel movement in over 2 days. Patient states her abdomen is distended but she states some of this distention is been ongoing for about a year. Patient states a week ago she was seen at [facility] and they discharged her home. Patient states he did have a computed tomography scan there as well. Patient denies any fever chills. Patient states she's been nauseated but no vomiting. Patient states prior to this episode of constipation she was having some diarrhea. Patient denies any back pain. Patient denies dysuria hematuria urinary frequency. Patient denies chest pain difficult breathing shortness of breath. - Related Data Home Medications Medication Instructions Recorded Confirmed Mirtazapine 30 mg PO HS 08/11/17 08/08/21 clonazePAM [KlonoPIN] 1 mg PO TID PRN 08/28/17 08/08/21 Ondansetron [Zofran] 4 - 8 mg PO BID PRN 08/08/21 08/08/21 Polyethylene Glycol 3350 [Miralax] 17 gm PO DAILY PRN 08/08/21 08/08/21 lamoTRIgine [LaMICtal] 100 mg PO DAILY 08/08/21 08/08/21 methocarbamoL [Robaxin] 500 mg PO TID PRN 08/08/21 08/08/21 Allergies Allergy/AdvReac Type Severity Reaction Status Date / Time Penicillins Allergy Unknown Verified 08/08/21 11:31 Childhood quetiapine [From Seroquel] AdvReac dizzy/shaky Verified 08/08/21 11:31 Review of Systems ROS Statement: Those systems with pertinent positive or pertinent negative responses have been documented in the HPI. ROS Other: All systems not noted in ROS Statement are negative. Past Medical History Past Medical History: Neurologic Disorder, Seizure Disorder Additional Past Medical History / Comment(s): 2009 -recurring boil upper rt thigh- pt stated pcp at the [facility] told her it looked like it may be mrsa but pt never got confirmation either way-had area "cut away"and it has'nt retutned..Hx vertigo and gait disorder in 2002,lumbar disc disease hx lower back, neck and shoulder pain, HERNIATED DISCS, HEADACHES-PAIN SHOOTS UP NECK AND INTO SHOULDER BLADES. No seizures in 5 yrs, hx of and KIDNEY STONES. History of Any Multi-Drug Resistant Organisms: None Reported Date of last positivie culture/infection: 2009 MDRO Source:: boil on back of left leg Past Surgical History: Back Surgery, Section, Hysterectomy, Tubal Ligation Additional Past Surgical History / Comment(s): Hx ectopic rupture left ovary and fallopian tube removed, lumbar spinal fusion, herniated bowel repair during spine surgery, march 2016-cervical fusion, lithotriipsy/basketing and stent january 2017, cystopscopy/lt ureterocopopy w/stent insertion-since removed on 08-27-17 Past Anesthesia/Blood Transfusion Reactions: Motion Sickness, Postoperative Nausea & Vomiting (PONV) Additional Past Anesthesia/Blood Transfusion Reaction / Comment(s): Quite extensive N&V with last proceudre that lasted for a few days. Past Psychological History: Anxiety, Depression Past Alcohol Use History: None Reported Past Drug Use History: None Reported - Past Family History Mother Family Medical History: Hyperlipidemia Father Family Medical History: Cancer Additional Family Medical History / Comment(s): Father from lung ca 1988 General Exam - General Exam Comments Initial Comments: GENERAL: Patient is well-developed and well-nourished. Patient is nontoxic and well- hydrated and is in mild distress. ENT: Neck is soft and supple. No significant lymphadenopathy is noted. Oropharynx is clear. Moist mucous membranes. Neck has full range of motion without eliciting any pain. EYES: The sclera were anicteric and conjunctiva were pink and moist. Extraocular movements were intact and pupils were equal round and reactive to light. Eyelids were unremarkable. PULMONARY: Unlabored respirations. Good breath sounds bilaterally. No audible rales rhonchi or wheezing was noted. CARDIOVASCULAR: There is a regular rate and rhythm without any murmurs gallops or rubs. ABDOMEN: Patient has diffuse distention with decreased breath sounds and slight tenderness diffusely SKIN: Skin is clear with no lesions or rashes and otherwise unremarkable. NEUROLOGIC: Patient is alert and oriented x3. Cranial nerves II through XII are grossly intact. Motor and sensory are also intact. Normal speech, volume and content. Symmetrical smile. MUSCULOSKELETAL: Normal extremities with adequate strength and full range of motion. No lower extremity swelling or edema. No calf tenderness. LYMPHATICS: No significant lymphadenopathy is noted PSYCHIATRIC: Normal psychiatric evaluation. Limitations: no limitations Course Vital Signs 08/08/21 08/08/21 08/08/21 08:44 10:48 11:14 Temperature 99.0 F Pulse Rate 104 H 90 107 H Respiratory 20 18 18 Rate Blood Pressure 144/86 107/74 112/72 O2 Sat by Pulse 96 96 98 Oximetry Medical Decision Making - Medical Decision Making Patient's x-ray shows some constipation. Patient received an enema had good results. I reviewed the results [facility] the CAT scan from [facility] Patient states she's feeling better she'll be discharged home to follow-up with primary medical care doctor - Lab Data Result diagrams: 08/08/21 09:23 08/08/21 09:23 Lab Results 08/08/21 08/08/21 08/08/21 Range/Units 09:23 09:23 09:23 WBC 7.3 (3.8-10.6) k/uL RBC 3.90 (3.80-5.40) m/uL Hgb 13.8 (11.4-16.0) gm/dL Hct 40.3 (34.0-46.0) % MCV 103.3 H (80.0-100.0) fL MCH 35.3 H (25.0-35.0) pg MCHC 34.1 (31.0-37.0) g/dL RDW 12.0 (11.5-15.5) % Plt Count 182 (150-450) k/uL MPV 7.6 Neutrophils % 66 % Lymphocytes % 25 % Monocytes % 4 % Eosinophils % 3 % Basophils % 0 % Neutrophils # 4.8 (1.3-7.7) k/uL Lymphocytes # 1.8 (1.0-4.8) k/uL Monocytes # 0.3 (0-1.0) k/uL Eosinophils # 0.2 (0-0.7) k/uL Basophils # 0.0 (0-0.2) k/uL Macrocytosis Slight Sodium 138 (137-145) mmol/L Potassium 4.1 (3.5-5.1) mmol/L Chloride 107 (98-107) mmol/L Carbon Dioxide 25 (22-30) mmol/L Anion Gap 6 mmol/L BUN 8 (7-17) mg/dL Creatinine 0.70 (0.52-1.04) mg/dL Est GFR (CKD-EPI)AfAm >90 (>60 ml/min/1.73 sqM) Est GFR (CKD-EPI)NonAf >90 (>60 ml/min/1.73 sqM) Glucose 92 (74-99) mg/dL Plasma Lactic Acid [place]ane (0.7-2.0) mmol/L Calcium 9.2 (8.4-10.2) mg/dL Total Bilirubin 0.4 (0.2-1.3) mg/dL AST 26 (14-36) U/L ALT 26 (4-34) U/L Alkaline Phosphatase 42 (38-126) U/L Total Protein 6.4 (6.3-8.2) g/dL Albumin 3.8 (3.5-5.0) g/dL Amylase 43 (30-110) U/L Lipase 57 (23-300) U/L Urine Color Light Yellow Urine Appearance Clear (Clear) Urine pH 6.5 (5.0-8.0) Ur Specific [place] 1.004 (1.001-1.035) Urine Protein Negative (Negative) Urine Glucose (UA) Negative (Negative) Urine Ketones Negative (Negative) Urine Blood Negative (Negative) Urine Nitrite Negative (Negative) Urine Bilirubin Negative (Negative) Urine Urobilinogen <2.0 (<2.0) mg/dL Ur Leukocyte Esterase Negative (Negative) 08/08/21 Range/Units 09:23 WBC (3.8-10.6) k/uL RBC (3.80-5.40) m/uL Hgb (11.4-16.0) gm/dL Hct (34.0-46.0) % MCV (80.0-100.0) fL MCH (25.0-35.0) pg MCHC (31.0-37.0) g/dL RDW (11.5-15.5) % Plt Count (150-450) k/uL MPV Neutrophils % % Lymphocytes % % Monocytes % % Eosinophils % % Basophils % % Neutrophils # (1.3-7.7) k/uL Lymphocytes # (1.0-4.8) k/uL Monocytes # (0-1.0) k/uL Eosinophils # (0-0.7) k/uL Basophils # (0-0.2) k/uL Macrocytosis Sodium (137-145) mmol/L Potassium (3.5-5.1) mmol/L Chloride (98-107) mmol/L Carbon Dioxide (22-30) mmol/L Anion Gap mmol/L BUN (7-17) mg/dL Creatinine (0.52-1.04) mg/dL Est GFR (CKD-EPI)AfAm (>60 ml/min/1.73 sqM) Est GFR (CKD-EPI)NonAf (>60 ml/min/1.73 sqM) Glucose (74-99) mg/dL Plasma Lactic Acid [place] 0.8 (0.7-2.0) mmol/L Calcium (8.4-10.2) mg/dL Total Bilirubin (0.2-1.3) mg/dL AST (14-36) U/L ALT (4-34) U/L Alkaline Phosphatase (38-126) U/L Total Protein (6.3-8.2) g/dL Albumin (3.5-5.0) g/dL Amylase (30-110) U/L Lipase (23-300) U/L Urine Color Urine Appearance (Clear) Urine pH (5.0-8.0) Ur Specific [place] (1.001-1.035) Urine Protein (Negative) Urine Glucose (UA) (Negative) Urine Ketones (Negative) Urine Blood (Negative) Urine Nitrite (Negative) Urine Bilirubin (Negative) Urine Urobilinogen (<2.0) mg/dL Ur Leukocyte Esterase (Negative) Disposition Clinical Impression: Abdominal pain, Constipation Disposition: ADMITTED IP TO THIS [facility] Instructions (If sedation given, give patient instructions): Abdominal Pain (ED), High Fiber Diet (ED), Constipation (ED) Is patient prescribed a controlled substance at d/c from ED?: No Referrals: Zach Washington MD [Primary Care Provider] - 1-2 days Time of Disposition: 12:25
[2021-08-08 09:41] LABS: Basophils % (A) 0 %; Eosinophils # (A) 0.2 k/uL (0-0.7); Eosinophils % (A) 3 %; HCT 40.3 % (34.0-46.0); HGB 13.8 gm/dL (11.4-16.0); Lymphocytes # (A) 1.8 k/uL (1.0-4.8); Lymphocytes % (A) 25 %; MCH 35.3 pg (25.0-35.0); MCHC 34.1 g/dL (31.0-37.0); MCV 103.3 fL (80.0-100.0); Macrocytosis Slight; Mean Platelet Volume 7.6; Monocytes # (A) 0.3 k/uL (0-1.0); Monocytes % (A) 4 %; Neutrophils # (A) 4.8 k/uL (1.3-7.7); Neutrophils % (A) 66 %; Platelet Count 182 k/uL (150-450); WBC 7.3 k/uL (3.8-10.6)
[2021-08-08 09:47] LABS: Appearance,Urine Clear (Clear); Bilirubin,Urine Negative (Negative); Blood,Urine Negative (Negative); Color,Urine Light Yellow; Glucose,Urine (UA) Negative (Negative); Ketones,Urine Negative (Negative); Leukocyte Esterase,Urine Negative (Negative); Nitrite,Urine Negative (Negative); PH, Urine 6.5 (5.0-8.0); Protein,Urine Negative (Negative); Specific Gravity,Urine 1.004 (1.001-1.035); Urobilinogen,Urine <2.0 mg/dL (<2.0)
[2021-08-08 10:03] LABS: ALT 26 U/L (4-34); AST 26 U/L (14-36); African American GFR (CKD) >90 (>60 ml/min/1.73 sqM); Albumin 3.8 g/dL (3.5-5.0); Alkaline Phosphatase 42 U/L (38-126); Amylase 43 U/L (30-110); Anion Gap 6 mmol/L; Blood Urea Nitrogen 8 mg/dL (7-17); Calcium 9.2 mg/dL (8.4-10.2); Carbon Dioxide 25 mmol/L (22-30); Chloride 107 mmol/L (98-107); Glucose 92 mg/dL (74-99); Lipase 57 U/L (23-300); Non-African American GFR(CKD) >90 (>60 ml/min/1.73 sqM); Potassium 4.1 mmol/L (3.5-5.1); Sodium 138 mmol/L (137-145); Total Bilirubin 0.4 mg/dL (0.2-1.3); Total Protein 6.4 g/dL (6.3-8.2)
--- NOTE | 2021-08-08 10:59 | XR ---
EXAMINATION TYPE: XR KUB DATE OF EXAM: 08/08/2021 10:54 AM CLINICAL HISTORY: Abdominal pain with no bowel movement for several days TECHNIQUE: Two Upright KUB images of the abdomen are obtained. COMPARISON: CT abdomen and pelvis August 28, 2017 FINDINGS: Scattered gas is seen in non-distended small bowel loops. Gas and fecal material is seen in non-distended colon. Prominent right hepatic lobe redemonstrated. Surgical changes lumbosacral junct ion redemonstrated. No free air. Lung bases are clear. IMPRESSION: Overall nonobstructive bowel gas pattern redemonstrated.
[2021-08-08] MEDS ORDERED: KETOROLAC 15 MG/ML 1 ML VIAL IVP STA (11:10)
[2021-08-08 12:39] VITALS: BP 106/60; PULSE 95; RESP 20; TEMP 98.2
== END 2021-08-08 12:39 | disposition other institution (70) ==
LOC: EC 08:40
DX: R10.9 Unspecified abdominal pain (principal); K59.00 Constipation, unspecified; G40.909 Epilepsy, unspecified, not intractable, without status epilepticus; F41.9 Anxiety disorder, unspecified; F32.9 Major depressive disorder, single episode, unspecified
CPT/HCPCS: 36415; 80053; 82150; 83605; 83690; 85025; 81003; 74018; 99284; 96374; 96361 ×2; J1885

== ENCOUNTER 2022-08-07 12:29 | Emergency (ER) | payer MEDICARE, OTHER ==
[2022-08-07 12:52] VITALS: TEMP 99.1
[2022-08-07] MEDS ORDERED: methylPREDNISolone SOD SUCCI 125 MG/2 ML VIAL IV STA (13:54)
[2022-08-07] MEDS ORDERED: HYDROmorphone 0.5 MG/0.5 ML SYRINGE IVP STA ×2 (13:54→15:39)
[2022-08-07] MEDS ORDERED: ONDANSETRON 4 MG/2 ML VIAL IVP STA (13:54)
[2022-08-07] MEDS ORDERED: KETOROLAC 15 MG/ML 1 ML VIAL IVP STA (13:55)
[2022-08-07] MEDS ORDERED: ORPHENADRINE 30 MG/ML 2 ML VIAL IVP STA (13:55)
[2022-08-07 14:26] LABS: Basophils % (A) 0 %; Eosinophils # (A) 0.2 k/uL (0-0.7); Eosinophils % (A) 2 %; HCT 45.9 % (34.0-46.0); HGB 15.9 gm/dL (11.4-16.0); Lymphocytes # (A) 2.2 k/uL (1.0-4.8); Lymphocytes % (A) 23 %; MCH 35.9 pg (25.0-35.0); MCHC 34.8 g/dL (31.0-37.0); MCV 103.2 fL (80.0-100.0); Macrocytosis Slight; Mean Platelet Volume 7.9; Monocytes # (A) 0.4 k/uL (0-1.0); Monocytes % (A) 5 %; Neutrophils # (A) 6.6 k/uL (1.3-7.7); Neutrophils % (A) 69 %; Platelet Count 211 k/uL (150-450); RBC 4.45 m/uL (3.80-5.40); RDW 12.1 % (11.5-15.5); WBC 9.6 k/uL (3.8-10.6)
[2022-08-07 14:34] LABS: ALT 18 U/L (4-34); AST 22 U/L (14-36); African American GFR (CKD) >90 (>60 ml/min/1.73 sqM); Albumin 4.7 g/dL (3.5-5.0); Alkaline Phosphatase 64 U/L (38-126); Anion Gap 4 mmol/L; Blood Urea Nitrogen 8 mg/dL (7-17); Calcium 9.5 mg/dL (8.4-10.2); Carbon Dioxide 28 mmol/L (22-30); Chloride 105 mmol/L (98-107); Glucose 88 mg/dL (74-99); Non-African American GFR(CKD) >90 (>60 ml/min/1.73 sqM); Potassium 4.3 mmol/L (3.5-5.1); Sodium 137 mmol/L (137-145); Total Bilirubin 0.6 mg/dL (0.2-1.3); Total Protein 7.1 g/dL (6.3-8.2)
[2022-08-07] MEDS ORDERED: SODIUM CHLORIDE 0.9% 1,000 ML IV STA (14:51)
--- NOTE | 2022-08-07 16:14 | ED ---
Extremity Problem HPI - General Chief complaint: Extremity Problem,Nontraumatic Stated complaint: shoulder pain Time Seen by Provider: 08/07/22 13:42 Source: patient Mode of arrival: wheelchair Limitations: no limitations - History of Present Illness Initial comments: Patient is a 52-year-old female who presents for treatment of acute on chronic shoulder pain. Patient states she has had left shoulder pain since the beginning of this year. She follows with Dr. Wu. States she has got an x-ray and was diagnosed with bone spurs. She has an appointment to see him on the for MRI and next steps in management. Patient states for the past few days she has been experiencing excruciating left shoulder pain. She denies injury. States pain is in her shoulder with radiation to the neck and down the left upper extremity to the fingers. She also reports numbness and tingling in her entire left extremity. Taking Tylenol and Motrin for pain with little relief. Patient states she has been so uncomfortable for the past few days she has not slept, little eating or drinking. States her primary care provider was concerned that she was dehydrated and sent her for evaluation. - Related Data Home Medications Medication Instructions Recorded Confirmed Mirtazapine 15 - 30 mg PO HS 08/11/17 08/07/22 clonazePAM [KlonoPIN] 1 mg PO TID PRN 08/28/17 08/07/22 Ondansetron [Zofran] 4 - 8 mg PO BID PRN 08/08/21 08/07/22 lamoTRIgine [LaMICtal] 100 mg PO DAILY 08/08/21 08/07/22 Acetaminophen Tab [Tylenol Tab] 1,000 mg PO Q6HR PRN 08/07/22 08/07/22 Albuterol Inhaler [Ventolin Hfa 2 puff INHALATION RT-Q4H PRN 08/07/22 08/07/22 Inhaler] Ascorbic Acid [Vitamin C] 500 mg PO DAILY 08/07/22 08/07/22 Oxybutynin Xl [Ditropan XL] 5 mg PO HS 08/07/22 08/07/22 rOPINIRole HCL [Requip] 0.5 mg PO HS 08/07/22 08/07/22 tiZANidine [Zanaflex] 2 mg PO BID PRN 08/07/22 08/07/22 Previous Rx's Medication Instructions Recorded Cyclobenzaprine [Flexeril] 10 mg PO HS PRN #7 tab 08/07/22 Ondansetron Odt [Zofran Odt] 4 mg PO Q8HR PRN #10 tab 08/07/22 predniSONE 50 mg PO DAILY #5 tab 08/07/22 Allergies Allergy/AdvReac Type Severity Reaction Status Date / Time nitrofurantoin Allergy Severe Anaphylaxis Verified 08/07/22 15:53 [From Macrobid] Penicillins Allergy Unknown Verified 08/07/22 15:53 Childhood quetiapine [From Seroquel] AdvReac dizzy/shaky, Verified 08/07/22 15:53 tremors Review of Systems ROS Statement: Those systems with pertinent positive or pertinent negative responses have been documented in the HPI. ROS Other: All systems not noted in ROS Statement are negative. Past Medical History Past Medical History: Neurologic Disorder, Seizure Disorder Additional Past Medical History / Comment(s): 2009 -recurring boil upper rt thigh- pt stated pcp at the [facility] told her it looked like it may be mrsa but pt never got confirmation either way-had area "cut away"and it has'nt retutned..Hx vertigo and gait disorder in 2002,lumbar disc disease hx lower back, neck and shoulder pain, HERNIATED DISCS, HEADACHES-PAIN SHOOTS UP NECK AND INTO SHOULDER BLADES. No seizures in 5 yrs, hx of and KIDNEY STONES. History of Any Multi-Drug Resistant Organisms: None Reported Date of last positivie culture/infection: 2009 MDRO Source:: boil on back of left leg Past Surgical History: Back Surgery, Section, Hysterectomy, Tubal Ligation Additional Past Surgical History / Comment(s): Hx ectopic rupture left ovary and fallopian tube removed, lumbar spinal fusion, herniated bowel repair during spine surgery, march 2016-cervical fusion, lithotriipsy/basketing and stent january 2017, cystopscopy/lt ureterocopopy w/stent insertion-since removed on 08-27-17 Past Anesthesia/Blood Transfusion Reactions: Motion Sickness, Postoperative Nausea & Vomiting (PONV) Additional Past Anesthesia/Blood Transfusion Reaction / Comment(s): Quite extensive N&V with last proceudre that lasted for a few days. Past Psychological History: Anxiety, Depression Smoking Status: Current every day smoker Past Alcohol Use History: None Reported Past Drug Use History: None Reported - Past Family History Mother Family Medical History: Hyperlipidemia Father Family Medical History: Cancer Additional Family Medical History / Comment(s): Father from lung ca 1988 General Exam Limitations: no limitations General appearance: alert, in distress (pain) ENT exam: Present: mucous membranes dry Respiratory exam: Present: normal lung sounds bilaterally. Absent: respiratory distress, wheezes, rales, rhonchi, stridor Cardiovascular Exam: Present: regular rate, normal rhythm, normal heart sounds. Absent: systolic murmur, diastolic murmur, rubs, gallop, clicks Left Shoulder Exam: Present: normal inspection, tenderness. Absent: full ROM (all ROM limited due to severe pain ), swelling, ecchymosis, deformity, crepitus, erythema, tenderness over AC joint Upper Arm exam: Present: normal inspection, full ROM. Absent: tenderness, swelling Elbow exam: Present: normal inspection, full ROM. Absent: tenderness, swelling Forearm Wrist exam: Present: normal inspection, full ROM. Absent: tenderness, swelling Hand Wrist exam: Present: normal inspection, full ROM. Absent: tenderness, swelling Neuro motor exam: Present: wrist extension intact, thumb opposition intact, thumb IP flexion intact, thumb adduction intact, fingers 2-5 abduction intact Neurosensory exam: Present: radial nerve intact, ulnar nerve intact, median nerve intact Vascular: Present: normal capillary refill. Absent: vascular compromise, Pallo Neurological exam: Present: alert, oriented X3, CN II-XII intact Psychiatric exam: Present: normal affect, normal mood Skin exam: Present: warm, dry, intact, normal color. Absent: rash Course Vital Signs 08/07/22 08/07/22 12:49 16:19 Temperature 99.1 F Pulse Rate 102 H 71 Respiratory 20 18 Rate Blood Pressure 156/93 114/76 O2 Sat by Pulse 97 97 Oximetry Medical Decision Making - Medical Decision Making This is a 52-year-old female presenting with acute on chronic shoulder pain. Patient appears to be in significant pain. She seems to be very uncomfortable. Neurovascularly intact. Pain controlled in the emergency department. Patient given large fluid bolus and laboratory studies obtained which do not reflect dehydration. I will send patient home with short course of [place] and muscle relaxers for severe pain until she can see Dr. Garcia on the 15. With radicular symptoms I will also send home with prednisone. [place] prescription given via paper prescription due to issues with electronic prescription. Dr. Morton is my attending. - Lab Data Result diagrams: 08/07/22 14:10 08/07/22 14:10 Lab Results 08/07/22 08/07/22 Range/Units 14:10 14:10 WBC 9.6 (3.8-10.6) k/uL RBC 4.45 (3.80-5.40) m/uL Hgb 15.9 (11.4-16.0) gm/dL Hct 45.9 (34.0-46.0) % MCV 103.2 H (80.0-100.0) fL MCH 35.9 H (25.0-35.0) pg MCHC 34.8 (31.0-37.0) g/dL RDW 12.1 (11.5-15.5) % Plt Count 211 (150-450) k/uL MPV 7.9 Neutrophils % 69 % Lymphocytes % 23 % Monocytes % 5 % Eosinophils % 2 % Basophils % 0 % Neutrophils # 6.6 (1.3-7.7) k/uL Lymphocytes # 2.2 (1.0-4.8) k/uL Monocytes # 0.4 (0-1.0) k/uL Eosinophils # 0.2 (0-0.7) k/uL Basophils # 0.0 (0-0.2) k/uL Macrocytosis Slight Sodium 137 (137-145) mmol/L Potassium 4.3 (3.5-5.1) mmol/L Chloride 105 (98-107) mmol/L Carbon Dioxide 28 (22-30) mmol/L Anion Gap 4 mmol/L BUN 8 (7-17) mg/dL Creatinine 0.59 (0.52-1.04) mg/dL Est GFR (CKD-EPI)AfAm >90 (>60 ml/min/1.73 sqM) Est GFR (CKD-EPI)NonAf >90 (>60 ml/min/1.73 sqM) Glucose 88 (74-99) mg/dL Calcium 9.5 (8.4-10.2) mg/dL Total Bilirubin 0.6 (0.2-1.3) mg/dL AST 22 (14-36) U/L ALT 18 (4-34) U/L Alkaline Phosphatase 64 (38-126) U/L Total Protein 7.1 (6.3-8.2) g/dL Albumin 4.7 (3.5-5.0) g/dL Disposition Clinical Impression: Left shoulder pain Disposition: HOME SELF-CARE Condition: Good Instructions (If sedation given, give patient instructions): Shoulder Pain (ED) Additional Instructions: Take medication as directed. Start prednisone prescription tomorrow. Do not drink alcohol or operate machinery while taking Flexeril. Follow-up with Dr. Wu as planned. Return to the emergency department if you experience new, concerning, or worsening symptoms. Prescriptions: Cyclobenzaprine [Flexeril] 10 mg PO HS PRN #7 tab PRN Reason: Muscle Spasm predniSONE 50 mg PO DAILY #5 tab Ondansetron Odt [Zofran Odt] 4 mg PO Q8HR PRN #10 tab PRN Reason: Nausea Is patient prescribed a controlled substance at d/c from ED?: No Referrals: Zach Washington MD [Primary Care Provider] - 1-2 days Time of Disposition: 16:13
[2022-08-07 16:20] VITALS: BP 114/76; PULSE 71; RESP 18
== END 2022-08-07 16:24 | disposition home or self-care (01) ==
LOC: EC 12:29
DX: M25.512 Pain in left shoulder (principal); F41.9 Anxiety disorder, unspecified; F32.A Depression, unspecified; F17.200 Nicotine dependence, unspecified, uncomplicated; Z88.0 Allergy status to penicillin; Z88.1 Allergy status to other antibiotic agents; Z88.8 Allergy status to other drugs, medicaments and biological substances
CPT/HCPCS: 99284; 96374; 96375 ×4; 96376; 96361; 36415; 80053; 85025; J2360; J2930; J2405; J1885; J1170

== ENCOUNTER 2022-08-08 21:42 | Observation (INO) | payer MEDICARE, OTHER ==
[2022-08-08] MEDS ORDERED: SODIUM CHLORIDE 0.9% 1,000 ML IV STA (22:23)
[2022-08-08] MEDS ORDERED: ONDANSETRON ODT 4 MG TAB PO STA (22:23)
[2022-08-08] MEDS ORDERED: MORPHINE SULFATE 4 MG/ML SYRINGE IV STA (22:23)
[2022-08-08] MEDS ORDERED: KETOROLAC 15 MG/ML 1 ML VIAL IVP STA (22:23)
--- NOTE | 2022-08-08 22:29 | ED ---
Back Pain [facility] - General Chief Complaint: Back Pain/Injury Stated Complaint: dizziness, body aches/numbness Time Seen by Provider: 08/08/22 22:11 Source: patient, RN notes reviewed - History of Present Illness Initial Comments: This is a 52-year-old female who has multiple complaints. Patient states she was seen here yesterday for left shoulder pain. However since then, despite the pain medication she has had progression of pain to her upper back, lower back. Patient states she's had increased problems with leaking urine. Patient states she does take oxybutynin for overactive bladder but states for the past few days doesn't seem to be working. Patient also had trouble ambulating due to genera lized weakness and a tingling feeling in both legs and both arms. Unilateral focal deficits. She is denying any chest pain or abdominal pain. No changes in bowel movements. Although she states she did not have a bowel movement today. Patient was given a prescription for [place] yesterday but only took one half tablet. An MRI scheduled on her left shoulder tomorrow. She has an upcoming appointment with orthopedics. Patient states that she's had dizziness as well going on for at least 3 weeks, if not longer. no fever or chills, no changes in vision or hearing, patient also complaining of a mild sore throat and headache. No sore throat or difficulty with speech, POSITIVE for chronic neck and back pain. Previous surgeries., no chest pain or shortness of breath, no abdominal pain, no nausea or vomiting, no changes in urination or bowel movements, NUMBNESS and tingling to both arms, both legs, with generalized weakness., no skin rashes or lesions. Past medical, surgical, social, and family history reviewed. Complaint: back pain - Related Data Home Medications Medication Instructions Recorded Confirmed Mirtazapine 15 - 30 mg PO HS 08/11/17 08/07/22 clonazePAM [KlonoPIN] 1 mg PO TID PRN 08/28/17 08/07/22 Ondansetron [Zofran] 4 - 8 mg PO BID PRN 08/08/21 08/07/22 lamoTRIgine [LaMICtal] 100 mg PO DAILY 08/08/21 08/07/22 Acetaminophen Tab [Tylenol Tab] 1,000 mg PO Q6HR PRN 08/07/22 08/07/22 Albuterol Inhaler [Ventolin Hfa 2 puff INHALATION RT-Q4H PRN 08/07/22 08/07/22 Inhaler] Ascorbic Acid [Vitamin C] 500 mg PO DAILY 08/07/22 08/07/22 Oxybutynin Xl [Ditropan XL] 5 mg PO HS 08/07/22 08/07/22 rOPINIRole HCL [Requip] 0.5 mg PO HS 08/07/22 08/07/22 tiZANidine [Zanaflex] 2 mg PO BID PRN 08/07/22 08/07/22 Previous Rx's Medication Instructions Recorded Cyclobenzaprine [Flexeril] 10 mg PO HS PRN #7 tab 08/07/22 Ondansetron Odt [Zofran Odt] 4 mg PO Q8HR PRN #10 tab 08/07/22 predniSONE 50 mg PO DAILY #5 tab 08/07/22 Allergies Allergy/AdvReac Type Severity Reaction Status Date / Time nitrofurantoin Allergy Severe Anaphylaxis Verified 08/08/22 21:52 [From Macrobid] Penicillins Allergy Unknown Verified 08/08/22 21:52 Childhood quetiapine [From Seroquel] AdvReac dizzy/shaky, Verified 08/08/22 21:52 tremors Review of Systems ROS Statement: Those systems with pertinent positive or pertinent negative responses have been documented in the HPI. ROS Other: All systems not noted in ROS Statement are negative. Past Medical History Past Medical History: Neurologic Disorder, Seizure Disorder Additional Past Medical History / Comment(s): 2009 -recurring boil upper rt thigh- pt stated pcp at the [facility] told her it looked like it may be mrsa but pt never got confirmation either way-had area "cut away"and it has'nt retutned..Hx vertigo and gait disorder in 2002,lumbar disc disease hx lower back, neck and shoulder pain, HERNIATED DISCS, HEADACHES-PAIN SHOOTS UP NECK AND INTO SHOULDER BLADES. No seizures in 5 yrs, hx of and KIDNEY STONES. History of Any Multi-Drug Resistant Organisms: None Reported Date of last positivie culture/infection: 2009 MDRO Source:: boil on back of left leg Past Surgical History: Back Surgery, Section, Hysterectomy, Tubal Ligation Additional Past Surgical History / Comment(s): Hx ectopic rupture left ovary and fallopian tube removed, lumbar spinal fusion, herniated bowel repair during spine surgery, march 2016-cervical fusion, lithotriipsy/basketing and stent january 2017, cystopscopy/lt ureterocopopy w/stent insertion-since removed on 08-27-17 Past Anesthesia/Blood Transfusion Reactions: Motion Sickness, Postoperative Nausea & Vomiting (PONV) Additional Past Anesthesia/Blood Transfusion Reaction / Comment(s): Quite extensive N&V with last proceudre that lasted for a few days. Past Psychological History: Anxiety, Depression Smoking Status: Current every day smoker Past Alcohol Use History: None Reported Past Drug Use History: None Reported - Past Family History Mother Family Medical History: Hyperlipidemia Father Family Medical History: Cancer Additional Family Medical History / Comment(s): Father from lung ca 1988 General Exam - General Exam Comments Initial Comments: See nontoxic-appearing female who is tachycardic. Patient appears to be anxious, patient tearful, in distress secondary to generalized pain. General appearance: alert, in distress Head exam: Present: atraumatic, normocephalic, normal inspection Eye exam: Present: normal appearance, PERRL, EOMI. Absent: scleral icterus, conjunctival injection, periorbital swelling ENT exam: Present: normal exam, mucous membranes moist Neck exam: Present: normal inspection. Absent: tenderness, meningismus, lymphadenopathy Respiratory exam: Present: normal lung sounds bilaterally. Absent: respiratory distress, wheezes, rales, rhonchi, stridor, chest wall tenderness, accessory muscle use, decreased breath sounds, prolonged expiratory Cardiovascular Exam: Present: normal rhythm, tachycardia, normal heart sounds. Absent: systolic murmur, diastolic murmur, rubs, gallop, clicks GI/Abdominal exam: Present: soft, normal bowel sounds. Absent: distended, tenderness, guarding, rebound, rigid Rectal exam: Present: normal inspection, normal rectal tone, heme (-) stool, other (Chaperoned by female RN. No evidence of diminished rectal tone. No evidence of saddle anesthesia.). Absent: decreased rectal tone, bloody stool, fecal impaction, hemorrhoids, mass, tenderness Extremities exam: Present: normal inspection, full ROM, normal capillary refill, other (Patient may have mild, generalized weakness but no specific focal w eakness.). Absent: tenderness, pedal edema, joint swelling, calf tenderness Back exam: Present: normal inspection, tenderness, paraspinal tenderness. Absent: CVA tenderness (R), CVA tenderness (L), vertebral tenderness, rash noted Neurological exam: Present: alert, oriented X3, CN II-XII intact, reflexes normal (Reflexes normal with regards to Achilles, patellar, brachioradialis, biceps, great toe extensor strength, no clonus). Absent: motor sensory deficit Psychiatric exam: Present: normal affect, depressed, anxious Skin exam: Present: warm, dry, intact, normal color. Absent: rash Course Vital Signs 08/08/22 08/08/22 08/08/22 21:49 21:56 22:03 Temperature 98.2 F 98.2 F Pulse Rate 119 H 121 H Respiratory 18 20 Rate Blood Pressure 130/73 131/73 149/85 O2 Sat by Pulse 96 96 Oximetry 08/08/22 08/09/22 08/09/22 22:08 00:14 01:36 Temperature 97.8 F Pulse Rate 91 74 Respiratory 18 16 16 Rate Blood Pressure 130/75 O2 Sat by Pulse 100 Oximetry - Reevaluation(s) Reevaluation #1: 08/09/22 00:35 Patient does have evidence of leukocytosis, noted the patient has been on corticosteroids. Patient's lactic acid also 2.7. Sedimentation rate is normal. C-reactive protein 0.6. I'm going to bring the patient in for possible demyelination syndrome. We'll order hydration, patient shows no evidence of infectious or septic process. Patient will need neurological evaluation. Reevaluation #2: 08/09/22 00:48 Noted despite the triage note patient does not have loss of bowel. Patient has mild constipation. Patient has urinary incontinence but has had this for a while. Worse over the last few days. Bladder scan showed 180 mL of urine. The case was discussed in detail with ED attending physician. Presentation, findings, treatment plan discussed in detail. Technical Operations Specialist Dr. Lantigua Reevaluation #3: 08/09/22 01:35 Medical record is reviewed Symptoms are essentially unchanged. , Patient asking for another dose of pain medication. Patient is informed of results and questions answered Patient in no distress - Consultations Consultation #1: Case discussed in detail with Dr. Cancino. Patient will be admitted for observation and neurology consultation Medical Decision Making - Medical Decision Making Extensive, generalized complaints, seems to be [place] skeletal origin. Patient not complaining about any loss of bowel control or significant constipation. However the patient states that she has been leaking urine which she has previously been treated for oxybutynin. Patient is able to ambulate but presents to the ER with a walker. Differential diagnosis is wide. Peripheral nerve disease, multiple sclerosis, GB syndrome, other demyelinating syndromes. Viral syndrome. Psychosomatic disorder. Patient no evidence of saddle anesthesia. Normal rectal tone. Bladder scan showed 180 mL of urine. Computed tomography scan showed no acute abnormality. Patient will be admitted to Dr. Cancino for further evaluation. Will consult neurology to see the patient in the morning. Going to hold any further imaging until the patient is assessed by the admitting physician and the neurologist. We'll also consult orthopedics to take a look at the patient since she has been under the care of the orthopedic physician recently for left shoulder pain. - Lab Data Result diagrams: 08/08/22 22:35 08/08/22 22:35 Lab Results 08/08/22 08/08/22 08/08/22 Range/Units 22:35 22:35 22:35 WBC 16.8 H (3.8-10.6) k/uL RBC 4.20 (3.80-5.40) m/uL Hgb 14.9 (11.4-16.0) gm/dL Hct 43.6 (34.0-46.0) % MCV 103.8 H (80.0-100.0) fL MCH 35.6 H (25.0-35.0) pg MCHC 34.3 (31.0-37.0) g/dL RDW 12.1 (11.5-15.5) % Plt Count 206 (150-450) k/uL MPV 8.5 Neutrophils % 90 % Lymphocytes % 6 % Monocytes % 2 % Eosinophils % 1 % Basophils % 0 % Neutrophils # 15.1 H (1.3-7.7) k/uL Lymphocytes # 1.0 (1.0-4.8) k/uL Monocytes # 0.4 (0-1.0) k/uL Eosinophils # 0.2 (0-0.7) k/uL Basophils # 0.0 (0-0.2) k/uL Macrocytosis Slight ESR 18 (0-20) mm/hr Sodium (137-145) mmol/L Potassium (3.5-5.1) mmol/L Chloride (98-107) mmol/L Carbon Dioxide (22-30) mmol/L Anion Gap mmol/L BUN (7-17) mg/dL Creatinine (0.52-1.04) mg/dL Est GFR (CKD-EPI)AfAm (>60 ml/min/1.73 sqM) Est GFR (CKD-EPI)NonAf (>60 ml/min/1.73 sqM) Glucose (74-99) mg/dL Lactic Ac Sepsis Rflx Plasma Lactic Acid Dane (0.7-2.0) mmol/L Calcium (8.4-10.2) mg/dL Total Bilirubin (0.2-1.3) mg/dL AST (14-36) U/L ALT (4-34) U/L Alkaline Phosphatase (38-126) U/L C-Reactive Protein (<1.0) mg/dL Total Protein (6.3-8.2) g/dL Albumin (3.5-5.0) g/dL Lipase (23-300) U/L Urine Color Light Yellow Urine Appearance Clear (Clear) Urine pH 7.0 (5.0-8.0) Ur Specific [place] 1.008 (1.001-1.035) Urine Protein Negative (Negative) Urine Glucose (UA) Negative (Negative) Urine Ketones Negative (Negative) Urine Blood Negative (Negative) Urine Nitrite Negative (Negative) Urine Bilirubin Negative (Negative) Urine Urobilinogen <2.0 (<2.0) mg/dL Ur Leukocyte Esterase Negative (Negative) Urine HCG, Qual Not Detected (Not Detectd) Stool Occult Blood (Negative) Urine Opiates Screen Detected H (NotDetected) Ur Oxycodone Screen Not Detected (NotDetected) Urine Methadone Screen Not Detected (NotDetected) Ur Propoxyphene Screen Not Detected (NotDetected) Ur Barbiturates Screen Not Detected (NotDetected) U Tricyclic Antidepress Not Detected (NotDetected) Ur Phencyclidine Scrn Not Detected (NotDetected) Ur Amphetamines Screen Not Detected (NotDetected) U Methamphetamines Scrn Not Detected (NotDetected) U Benzodiazepines Scrn Not Detected (NotDetected) Urine Cocaine Screen Not Detected (NotDetected) U Marijuana (THC) Screen Not Detected (NotDetected) Coronavirus (PCR) (Not Detectd) 08/08/22 08/08/22 08/08/22 Range/Units 22:35 22:35 22:35 WBC (3.8-10.6) k/uL RBC (3.80-5.40) m/uL Hgb (11.4-16.0) gm/dL Hct (34.0-46.0) % MCV (80.0-100.0) fL MCH (25.0-35.0) pg MCHC (31.0-37.0) g/dL RDW (11.5-15.5) % Plt Count (150-450) k/uL MPV Neutrophils % % Lymphocytes % % Monocytes % % Eosinophils % % Basophils % % Neutrophils # (1.3-7.7) k/uL Lymphocytes # (1.0-4.8) k/uL Monocytes # (0-1.0) k/uL Eosinophils # (0-0.7) k/uL Basophils # (0-0.2) k/uL Macrocytosis ESR (0-20) mm/hr Sodium 139 (137-145) mmol/L Potassium 4.5 (3.5-5.1) mmol/L Chloride 106 (98-107) mmol/L Carbon Dioxide 26 (22-30) mmol/L Anion Gap 7 mmol/L BUN 14 (7-17) mg/dL Creatinine 0.67 (0.52-1.04) mg/dL Est GFR (CKD-EPI)AfAm >90 (>60 ml/min/1.73 sqM) Est GFR (CKD-EPI)NonAf >90 (>60 ml/min/1.73 sqM) Glucose 121 H (74-99) mg/dL Lactic Ac Sepsis Rflx Plasma Lactic Acid Dane 2.7 H* (0.7-2.0) mmol/L Calcium 9.4 (8.4-10.2) mg/dL Total Bilirubin 0.3 (0.2-1.3) mg/dL AST 20 (14-36) U/L ALT 18 (4-34) U/L Alkaline Phosphatase 57 (38-126) U/L C-Reactive Protein 0.6 (<1.0) mg/dL Total Protein 6.8 (6.3-8.2) g/dL Albumin 4.4 (3.5-5.0) g/dL Lipase 45 (23-300) U/L Urine Color Urine Appearance (Clear) Urine pH (5.0-8.0) Ur Specific [place] (1.001-1.035) Urine Protein (Negative) Urine Glucose (UA) (Negative) Urine Ketones (Negative) Urine Blood (Negative) Urine Nitrite (Negative) Urine Bilirubin (Negative) Urine Urobilinogen (<2.0) mg/dL Ur Leukocyte Esterase (Negative) Urine HCG, Qual (Not Detectd) Stool Occult Blood (Negative) Urine Opiates Screen (NotDetected) Ur Oxycodone Screen (NotDetected) Urine Methadone Screen (NotDetected) Ur Propoxyphene Screen (NotDetected) Ur Barbiturates Screen (NotDetected) U Tricyclic Antidepress (NotDetected) Ur Phencyclidine Scrn (NotDetected) Ur Amphetamines Screen (NotDetected) U Methamphetamines Scrn (NotDetected) U Benzodiazepines Scrn (NotDetected) Urine Cocaine Screen (NotDetected) U Marijuana (THC) Screen (NotDetected) Coronavirus (PCR) Not Detected (Not Detectd) 08/09/22 08/09/22 08/09/22 Range/Units 00:22 00:41 02:06 WBC (3.8-10.6) k/uL RBC (3.80-5.40) m/uL Hgb (11.4-16.0) gm/dL Hct (34.0-46.0) % MCV (80.0-100.0) fL MCH (25.0-35.0) pg MCHC (31.0-37.0) g/dL RDW (11.5-15.5) % Plt Count (150-450) k/uL MPV Neutrophils % % Lymphocytes % % Monocytes % % Eosinophils % % Basophils % % Neutrophils # (1.3-7.7) k/uL Lymphocytes # (1.0-4.8) k/uL Monocytes # (0-1.0) k/uL Eosinophils # (0-0.7) k/uL Basophils # (0-0.2) k/uL Macrocytosis ESR (0-20) mm/hr Sodium (137-145) mmol/L Potassium (3.5-5.1) mmol/L Chloride (98-107) mmol/L Carbon Dioxide (22-30) mmol/L Anion Gap mmol/L BUN (7-17) mg/dL Creatinine (0.52-1.04) mg/dL Est GFR (CKD-EPI)AfAm (>60 ml/min/1.73 sqM) Est GFR (CKD-EPI)NonAf (>60 ml/min/1.73 sqM) Glucose (74-99) mg/dL Lactic Ac Sepsis Rflx Y Plasma Lactic Acid [place] 1.7 (0.7-2.0) mmol/L Calcium (8.4-10.2) mg/dL Total Bilirubin (0.2-1.3) mg/dL AST (14-36) U/L ALT (4-34) U/L Alkaline Phosphatase (38-126) U/L C-Reactive Protein (<1.0) mg/dL Total Protein (6.3-8.2) g/dL Albumin (3.5-5.0) g/dL Lipase (23-300) U/L Urine Color Urine Appearance (Clear) Urine pH (5.0-8.0) Ur Specific [place] (1.001-1.035) Urine Protein (Negative) Urine Glucose (UA) (Negative) Urine Ketones (Negative) Urine Blood (Negative) Urine Nitrite (Negative) Urine Bilirubin (Negative) Urine Urobilinogen (<2.0) mg/dL Ur Leukocyte Esterase (Negative) Urine HCG, Qual (Not Detectd) Stool Occult Blood Negative (Negative) Urine Opiates Screen (NotDetected) Ur Oxycodone Screen (NotDetected) Urine Methadone Screen (NotDetected) Ur Propoxyphene Screen (NotDetected) Ur Barbiturates Screen (NotDetected) U Tricyclic Antidepress (NotDetected) Ur Phencyclidine Scrn (NotDetected) Ur Amphetamines Screen (NotDetected) U Methamphetamines Scrn (NotDetected) U Benzodiazepines Scrn (NotDetected) Urine Cocaine Screen (NotDetected) U Marijuana (THC) Screen (NotDetected) Coronavirus (PCR) (Not Detectd) Disposition Clinical Impression: Mechanical back pain, Neuropathy, Paresthesia, General weakness, Difficulty in walking, Acidosis, lactic Disposition: ADMITTED IP TO THIS [facility] Condition: Fair Time of Disposition: 00:36 Decision to Admit Reason: Admit from EC Decision Time: 00:36
--- NOTE | 2022-08-08 22:58 | XR ---
EXAMINATION TYPE: XR chest 1V portable DATE OF EXAM: 08/08/2022 COMPARISON: NONE HISTORY: Chest pain TECHNIQUE: Single view FINDINGS: Heart and mediastinum are normal. Lungs are clear. Diaphragm is normal. Bony thorax is norm al. IMPRESSION: Normal chest. Normal heart.
[2022-08-08 22:59] LABS: Basophils % (A) 0 %; Eosinophils # (A) 0.2 k/uL (0-0.7); Eosinophils % (A) 1 %; HCT 43.6 % (34.0-46.0); HGB 14.9 gm/dL (11.4-16.0); Lymphocytes % (A) 6 %; MCH 35.6 pg (25.0-35.0); MCHC 34.3 g/dL (31.0-37.0); MCV 103.8 fL (80.0-100.0); Macrocytosis Slight; Mean Platelet Volume 8.5; Monocytes # (A) 0.4 k/uL (0-1.0); Monocytes % (A) 2 %; Neutrophils # (A) 15.1 k/uL (1.3-7.7); Neutrophils % (A) 90 %; Platelet Count 206 k/uL (150-450); RDW 12.1 % (11.5-15.5); WBC 16.8 k/uL (3.8-10.6)
[2022-08-08 23:29] LABS: Appearance,Urine Clear (Clear); Bilirubin,Urine Negative (Negative); Blood,Urine Negative (Negative); Color,Urine Light Yellow; Glucose,Urine (UA) Negative (Negative); Ketones,Urine Negative (Negative); Leukocyte Esterase,Urine Negative (Negative); Nitrite,Urine Negative (Negative); Protein,Urine Negative (Negative); Specific Gravity,Urine 1.008 (1.001-1.035); Urobilinogen,Urine <2.0 mg/dL (<2.0)
[2022-08-08 23:37] LABS: ALT 18 U/L (4-34); AST 20 U/L (14-36); African American GFR (CKD) >90 (>60 ml/min/1.73 sqM); Albumin 4.4 g/dL (3.5-5.0); Alkaline Phosphatase 57 U/L (38-126); Anion Gap 7 mmol/L; Blood Urea Nitrogen 14 mg/dL (7-17); C Reactive Protein 0.6 mg/dL (<1.0); Calcium 9.4 mg/dL (8.4-10.2); Carbon Dioxide 26 mmol/L (22-30); Chloride 106 mmol/L (98-107); Glucose 121 mg/dL (74-99); Lipase 45 U/L (23-300); Non-African American GFR(CKD) >90 (>60 ml/min/1.73 sqM); Potassium 4.5 mmol/L (3.5-5.1); Sodium 139 mmol/L (137-145); Total Bilirubin 0.3 mg/dL (0.2-1.3); Total Protein 6.8 g/dL (6.3-8.2)
[2022-08-08 23:44] LABS: Amphetamine Screen,Urine Not Detected (NotDetected); Barbiturate Screen,Urine Not Detected (NotDetected); Benzodiazepines Screen,Urine Not Detected (NotDetected); Cocaine Screen,Urine Not Detected (NotDetected); Methadone Screen, Urine Not Detected (NotDetected); Opiate Screen,Urine Detected (NotDetected); Oxycodone Screen, Urine Not Detected (NotDetected); Phencyclidine Screen,Urine Not Detected (NotDetected); Tricyclic Antidepressant,Urine Not Detected (NotDetected); Urn Cannabinoid Scrn Not Detected (NotDetected)
[2022-08-09 00:28] LABS: Erythrocyte Sedimentation Rate 18 mm/hr (0-20)
[2022-08-09] MEDS ORDERED: SODIUM CHLORIDE 0.9% 1,000 ML IV ONE (00:49)
[2022-08-09] MEDS ORDERED: MORPHINE SULFATE 4 MG/ML SYRINGE IV STA (01:35)
--- NOTE | 2022-08-09 01:54 | CT ---
EXAMINATION TYPE: CT ChestAbdPelvis w con DATE OF EXAM: 08/09/2022 COMPARISON: 08/28/2017 HISTORY: generalized pain. no injury. hx of back sx CT DLP: 1123.8 mGycm Automated exposure control for dose reduction was used. CONTRAST: Performed with IV Contrast, patient injected with 100 mL of Isovue 300. Images obtained from the thoracic inlet to the floor the pelvis with the IV contrast. The lungs are clear of infiltrate. No pleural effusion. Heart size is normal. No pericardial effusion . There are no hilar masses. No mediastinal adenopathy. Thoracic aorta is intact. No aneurysm. Liver spleen stomach pancreas appear intact. The bile ducts are not dilated. Gallbladder appears norm al. Liver is borderline enlarged and measures 19 cm. There is no adrenal mass. Kidneys show satisfactory contrast opacification. No hydronephrosis. Ureter s are not dilated. No retroperitoneal adenopathy. Delayed images show normal renal excretion. The francis dder distends smoothly. No inguinal hernia. No free fluid in the pelvis. No pelvic mass. There is hys terectomy. There are some sigmoid diverticula. No diverticulitis. The thoracic and lumbar vertebra appear intact. No compression fracture. There is anterior fusion elina theresa at L5-S1. IMPRESSION: There is some sigmoid diverticulosis without diverticulitis. No acute abnormality within the abdomen pelvis. Negative CT scan of the chest. No evidence of bronchopneumonia. I do not see a cause for sepsis. Ther e is clearing of the left renal obstruction compared to old exam.
--- NOTE | 2022-08-09 02:04 | CT ---
EXAMINATION TYPE: CT thor lumbar spine w con DATE OF EXAM: 08/09/2022 COMPARISON: CT abdomen 08/28/2017 HISTORY: generalized pain. no injury. hx of back sx CT DLP: mGycm Automated exposure control for dose reduction was used. CONTRAST: Performed with IV Contrast, patient injected with 100 mL of Isovue 300. Images obtained from T1 to S3 vertebra with no contrast. The thoracic and lumbar vertebrae show normal alignment. Posterior elements are intact. There is no p araspinal mass. There is no compression fracture. No significant disc space narrowing. There is mild spurring anteriorly of the endplates in the thoracic and lumbar spine. There is no thoracic or lumbar focal bone destruction. The posterior ribs appear intact. The sacroiliac joints are intact. There is anterior fusion surgery at L5-S1 IMPRESSION: Previous lumbar spine surgery. No acute abnormality of the thoracic and lumbar spine. No fracture. No sign of thoracic or lumbar spinal stenosis.
[2022-08-09] MEDS ORDERED: NALOXONE 0.4 MG/ML 1 ML VIAL IV PRN (02:09)
[2022-08-09] MEDS ORDERED: ACETAMINOPHEN TAB 325 MG TAB PO PRN (02:09)
[2022-08-09] MEDS ORDERED: ALBUTEROL NEBULIZED 2.5 MG/3 ML INHALATION PRN (02:12)
[2022-08-09] MEDS ORDERED: tiZANidine 4 MG TAB PO PRN (02:12)
[2022-08-09] MEDS ORDERED: SODIUM CHLORIDE 0.9% 1,000 ML IV SCH (02:15)
[2022-08-09] MEDS: ONDANSETRON 4 MG/2 ML VIAL IVP PRN ×2 (03:15→14:42)
[2022-08-09] MEDS: HYDROcodone/APAP 5-325MG 1 EACH TAB PO PRN ×2 (03:15→14:43)
[2022-08-09] MEDS ORDERED: HEPARIN SODIUM,PORCINE/PF 5,000 UNIT/0.5 ML SYRINGE SQ SCH (08:00)
[2022-08-09 08:25] VITALS: RESP 16
[2022-08-09] MEDS ORDERED: clonazePAM 0.5 MG TAB PO PRN (09:25)
[2022-08-09] MEDS ORDERED: ONDANSETRON ODT 4 MG TAB PO PRN (09:25)
[2022-08-09] MEDS ORDERED: lamoTRIgine 100 MG TAB PO SCH (09:30)
[2022-08-09] MEDS ORDERED: predniSONE 50 MG TAB PO SCH (09:30)
[2022-08-09] MEDS ORDERED: ASCORBIC ACID 500 MG TAB PO SCH (09:30)
--- NOTE | 2022-08-09 10:17 | P.CNOR ---
History of Present Illness - [facility] Consult date: 08/09/22 Requesting physician: Brady Verdin Consult reason: other (Left shoulder pain, generalized pain, back pain) History of present illness: Patient is a 52-year-old female with a past medical history vertigo, seizures, stroke, chronic back pain who presents to the emergency department with chief complaint of muscle spasms, left shoulder pain, back pain. Patient was seen at bedside this morning sitting up in bed. Patient says she did come in the emergency department on Sunday because of increased pain across the upper back and left shoulder. Patient says she was discharged home with pain medication, however, yesterday her brought her back in the hospital because of increasing pain in these areas as well as intense muscle spasms and weakness. Patient says this past Sunday she fell while she was in the bathtub. Patient says she tried to get out of the bathtub when she slipped and hit her right knee. Patient says since then she has had increased muscle spasm and weakness throughout her upper and lower extremities. Patient also mentions decreased movement in her left shoulder. Patient denies losing consciousness/hitting her head. Patient notes she does have spasms throughout her upper and lower extremities. Patient notes that she does have tightness in the muscles. Patient says she has also had difficult time walking over the past several days. Patient does say that she has had difficulty swallowing solid food and liquids. Patient also notes loss of bladder control. Patient says she does have a history of overactive bladder. She takes medication, however, over the past week she has noted increased episodes where she cannot tell when she is urina ting. Patient denies any general numbness/tingling. Patient does have a history of previous ACDF and lumbar fusion. Patient says she does follow with Dr. Rios. Patient says she does have an MRI of her left shoulder scheduled for later today. Patient notes over the past 5 days she has increased weakness of left shoulder and she has been unable to raise her left shoulder up. Patient says she has tried several injections into the left shoulder past without relief. Patient denies chest pain, fever, shortness of breath, loss of bowel control. Past Medical History Past Medical History: Neurologic Disorder, Seizure Disorder Additional Past Medical History / Comment(s): 2010 -recurring boil upper rt thigh- pt stated pcp at the [facility] told her it looked like it may be mrsa but pt never got confirmation either way-had area "cut away"and it has'nt retutned..Hx vertigo and gait disorder in 2002,lumbar disc disease hx lower back, neck and shoulder pain, HERNIATED DISCS, HEADACHES-PAIN SHOOTS UP NECK AND INTO SHOULDER BLADES. No seizures in 5 yrs, hx of and KIDNEY STONES. History of Any Multi-Drug Resistant Organisms: None Reported Year Discovered:: 2009 MDRO Source:: boil on back of left leg Past Surgical History: Back Surgery, Section, Hysterectomy, Tubal Ligation Additional Past Surgical History / Comment(s): Hx ectopic rupture left ovary and fallopian tube removed, lumbar spinal fusion, herniated bowel repair during spine surgery, march 2016-cervical fusion, lithotriipsy/basketing and stent january 2017, 7 cystopscopy/lt ureterocopopy w/stent insertion-since removed on 10-27-16 Past Anesthesia/Blood Transfusion Reactions: Motion Sickness, Postoperative Nausea & Vomiting (PONV) Additional Past Anesthesia/Blood Transfusion Reaction / Comm: Quite extensive N&V with last proceudre that lasted for a few days. Past Psychological History: Anxiety, Depression Smoking Status: Current every day smoker Past Alcohol Use History: None Reported Past Drug Use History: None Reported - Past Family History Mother Family Medical History: Hyperlipidemia Father Family Medical History: Cancer Additional Family Medical History / Comment(s): Father from lung ca 1988 Medications and Allergies Home Medications Medication Instructions Recorded Confirmed Type Mirtazapine 15 - 30 mg PO HS 08/11/17 08/07/22 History clonazePAM [KlonoPIN] 1 mg PO TID PRN 08/28/17 08/07/22 History Ondansetron [Zofran] 4 - 8 mg PO BID PRN 08/08/21 08/07/22 History lamoTRIgine [LaMICtal] 100 mg PO DAILY 08/08/21 08/07/22 History Acetaminophen Tab [Tylenol Tab] 1,000 mg PO Q6HR PRN 08/07/22 08/07/22 History Albuterol Inhaler [Ventolin Hfa 2 puff INHALATION RT-Q4H PRN 08/07/22 08/07/22 History Inhaler] Ascorbic Acid [Vitamin C] 500 mg PO DAILY 08/07/22 08/07/22 History Cyclobenzaprine [Flexeril] 10 mg PO HS PRN #7 tab 08/07/22 Rx Oxybutynin Xl [Ditropan XL] 5 mg PO HS 08/07/22 08/07/22 History predniSONE 50 mg PO DAILY #5 tab 08/07/22 Rx rOPINIRole HCL [Requip] 0.5 mg PO HS 08/07/22 08/07/22 History tiZANidine [Zanaflex] 2 mg PO BID PRN 08/07/22 08/07/22 History Allergies Allergy/AdvReac Type Severity Reaction Status Date / Time nitrofurantoin Allergy Severe Anaphylaxis Verified 08/08/22 21:52 [From Macrobid] Penicillins Allergy Unknown Verified 08/08/22 21:52 Childhood quetiapine [From Seroquel] AdvReac dizzy/shaky, Verified 08/08/22 21:52 tremors Physical Examination Inspection: Negative for any significant fractures, ecchymosis, erythema, ulcers. There is a fair amount of swelling present in the anterior cervical region near the collarbone on the left side. Biceps and calves appear to be tense and spasming during encounter. Sensation is equal, symmetric, bilaterally intact throughout the upper and lower extremities. Patient does present with numbness and tingling in the bilateral lower extremities from the hips down to the feet. Patient does have moderate tenderness to palpation over the lower cervical spine spine posteriorly both at midline and in the paravertebral region. This does extend distally to the upper thoracic region. Tenderness to palpation presents mostly between the shoulder blades. Patient does have some diffuse tenderness to palpation over the left shoulder at distal aspect of acromion and AC joint. NTTP throughout rest of exam. Patient does have full range of motion in the right upper extremity in shoulder elevation, abduction, external/internal rotation, elbow flexion/extension and wrist flexion/extension. Patient is unable to forward elevate left shoulder due to pain/weakness. Patient does have foreign motion left elbow in flexion to extension in left wrist flexion/extension. Patient does have similar range of motion bilateral lower extremities and hip flexion/extension and knee flexion/extension due to weakness. Gusset Maker strength 4-/5 bilaterally. Bilateral elbow flexion/extension 4/5. Left shoulder exam 3/5 in resisted shoulder elevation, abduction internal/external rotation. Right shoulder 4/5. Bilateral lower extremities 4- /5 in resisted knee flexion/extension and hip flexion/extension bilaterally. Her vascular status is intact bilaterally. Radial pulses intact, 2+ bilaterally. Cap refill under 3 seconds in digits of upper extremities. Negative Taniya's bilaterally. Negative clonus bilaterally. Negative Homans bilaterally. Results - Labs Labs: Abnormal Lab Results - Last 24 Hours (Table) 08/08/22 08/08/22 08/08/22 Range/Units 22:35 22:35 22:35 WBC 16.8 H (3.8-10.6) k/uL MCV 103.8 H (80.0-100.0) fL MCH 35.6 H (25.0-35.0) pg Neutrophils # 15.1 H (1.3-7.7) k/uL Glucose 121 H (74-99) mg/dL Plasma Lactic Acid Dane (0.7-2.0) mmol/L Urine Opiates Screen Detected H (NotDetected) 08/08/22 Range/Units 22:35 WBC (3.8-10.6) k/uL MCV (80.0-100.0) fL MCH (25.0-35.0) pg Neutrophils # (1.3-7.7) k/uL Glucose (74-99) mg/dL Plasma Lactic Acid Dane 2.7 H* (0.7-2.0) mmol/L Urine Opiates Screen (NotDetected) H & H 08/08/22 Range/Units 22:35 Hgb 14.9 (11.4-16.0) gm/dL Hct 43.6 (34.0-46.0) % Result Diagrams: 08/08/22 22:35 08/08/22 22:35 Assessment and Plan Assessment: 1. Left shoulder pain/weakness; dorsalgia; myoclonus 2. History of ACDF and lumbar fusion Plan: 1. Left shoulder pain/weakness; dorsalgia; myoclonus - patient was seen at bedside this morning. Patient does have an MRI of left shoulder scheduled for later today. Patient does present with weakness to left shoulder on exam. WBAT to LUE. Patient does also present with mild clonus in proximal pole weakness in the upper and lower extremities. Patient does have a complex neurological history. CT of thoracic and lumbar spine does show previous anterior fusion from L5 to S1. Negative for any significant central canal/neural foraminal stenosis. Negative for any compression fractures/paraspinal masses. Do recommend patient to follow-up with Dr. Rios and see neurologist here in hospital. At this time we do not recommend any emergent/urgent orthopedic surgical intervention. We will continue to follow patient during her stay in hospital. 2. Appreciate medical and neuro management 3. Pain management - Cameron; Tylenol; tizanidine 4. DVT prophylaxis - heparin 5. GI recs 6. PT/OT - weightbearing as tolerated walker 7. appreciate consult Time with Patient: Less than 30
--- NOTE | 2022-08-09 11:33 | P.CNNES ---
History of Present Illness Consult date: 08/09/22 Requesting physician: Brady Verdin Reason for Consult: generalized weakness, paresthesia, generalized pain History of Present Illness: This is a 52-year-old woman with history of seizure and last seizure was about 8 to 10 years ago, cervical fusion as well as lumbar fusion who presented emergency department because of multiple complaints. She stated that she's having left shoulder pain, numbness tingling of bilateral upper and lower, generalized weakness, dizziness. Patient stated that her symptoms has been going on for at least 3-4 months. She notices a weakness throughout the body but mostly when she wakes up and it's in the bilateral thigh region and she noticed numbness going from shoulder shooting down as well as the thighs shooting down. She stated that she's having eye fluttering that that uncontroll ed but stated that her last seizure was at least 8-10 years ago. She is having left shoulder pain. She feels warm throughout her body. Denies of any headache, visual disturbance, any focal weakness. She feels her balance is off. She has MRI lumbar scheduled for today later. She seeing orthopedic pediatrics team locally. She has coming up appointment with Dr. Gunn's team maybe next week she stated. Also patient has significant psych history and she is on Lamictal 100 mg daily. She is on Klonopin 1 mg 1 tablet 3 times a day as needed. Some of the workup during his hospital visit consisted of: Patient is afebrile so far White blood cells 16.8 slightly neutrophilic serum glucose is 121 on the Plasma-Lyte acid is 2.7 and the repeat is 1.7. Otherwise aggressive chem strip was unremarkable Urine hCG is not detected Urine drug screen is positive for opiate the rest is not detected Abdul virus PCR was not detected ESR is 18. Review of Systems Review of system: The 12 point system was reviewed and apparent positive and negative per HPI. Past Medical History Past Medical History: Neurologic Disorder, Seizure Disorder Additional Past Medical History / Comment(s): 2009 -recurring boil upper rt thigh- pt stated pcp at the [facility] told her it looked like it may be mrsa but pt never got confirmation either way-had area "cut away"and it has'nt retutned..Hx vertigo and gait disorder in 2002,lumbar disc disease hx lower back, neck and shoulder pain, HERNIATED DISCS, HEADACHES-PAIN SHOOTS UP NECK AND INTO SHOULDER BLADES. No seizures in 5 yrs, hx of and KIDNEY STONES. History of Any Multi-Drug Resistant Organisms: None Reported Date of last positivie culture/infection: 2009 MDRO Source:: boil on back of left leg Past Surgical History: Back Surgery, Section, Hysterectomy, Tubal Ligation Additional Past Surgical History / Comment(s): Hx ectopic rupture left ovary and fallopian tube removed, lumbar spinal fusion, herniated bowel repair during spine surgery, march 2016-cervical fusion, lithotriipsy/basketing and stent january 2017, cystopscopy/lt ureterocopopy w/stent insertion-since removed on 08-27-17 Past Anesthesia/Blood Transfusion Reactions: Motion Sickness, Postoperative Nausea & Vomiting (PONV) Additional Past Anesthesia/Blood Transfusion Reaction / Comment(s): Quite extensive N&V with last proceudre that lasted for a few days. Past Psychological History: Anxiety, Depression Smoking Status: Current every day smoker Past Alcohol Use History: None Reported Past Drug Use History: None Reported - Past Family History Mother Family Medical History: Hyperlipidemia Father Family Medical History: Cancer Additional Family Medical History / Comment(s): Father from lung ca 1988 Medications and Allergies Home Medications Medication Instructions Recorded Confirmed Type Mirtazapine 30 mg PO HS 08/11/17 08/09/22 History clonazePAM [KlonoPIN] 0.5 mg PO TID PRN 08/28/17 08/09/22 History Ondansetron [Zofran] 4 - 8 mg PO BID PRN 08/08/21 08/09/22 History lamoTRIgine [LaMICtal] 100 mg PO DAILY 08/08/21 08/09/22 History Acetaminophen Tab [Tylenol] 1,000 mg PO Q6HR PRN 08/07/22 08/09/22 History Albuterol Inhaler [Ventolin Hfa 2 puff INHALATION RT-Q4H PRN 08/07/22 08/09/22 History Inhaler] Ascorbic Acid [Vitamin C] 500 mg PO BID 08/07/22 08/09/22 History Cyclobenzaprine [Flexeril] 10 mg PO HS PRN #7 tab 08/07/22 08/09/22 Rx Oxybutynin Xl [Ditropan XL] 5 mg PO DAILY@1200 08/07/22 08/09/22 History predniSONE 50 mg PO DAILY #5 tab 08/07/22 08/09/22 Rx rOPINIRole HCL [Requip] 0.5 mg PO HS 08/07/22 08/09/22 History tiZANidine [Zanaflex] 2 mg PO BID PRN 08/07/22 08/09/22 History Allergies Allergy/AdvReac Type Severity Reaction Status Date / Time nitrofurantoin Allergy Severe Anaphylaxis Verified 08/09/22 11:42 [From Macrobid] Penicillins Allergy Unknown Verified 08/09/22 11:42 Childhood quetiapine [From Seroquel] AdvReac dizzy/shaky, Verified 08/09/22 11:42 tremors Physical Examination - Vital Signs Vital Signs: Vital Signs Temp Pulse Pulse Resp BP BP Pulse Ox 08/09/22 07:15 97.7 F 86 16 123/81 95 08/09/22 02:59 97.6 F 83 19 150/93 96 08/09/22 02:42 97.9 F 71 16 128/72 99 08/09/22 01:36 97.8 F 74 16 130/75 100 08/09/22 00:14 16 08/08/22 22:08 91 18 08/08/22 22:03 149/85 08/08/22 21:56 98.2 F 121 H 20 131/73 96 08/08/22 21:49 98.2 F 119 H 18 130/73 96 Intake and Output 08/08/22 08/09/22 08/09/22 22:59 06:59 14:59 Intake Total 240 Output Total 186 Balance -186 240 Intake: Oral 240 Output: Post Void Residual 186 Other: Voiding Method Bedpan Diaper # Voids 1 Weight 72.575 kg 72.575 kg GENERAL: The patient is lying in bed and is not in acute distress. CHEST: The heart rate is regular rate rhythm. No murmurs to auscultation. LUNG: Clear to auscultation bilaterally no wheezing noted throughout. Not labored breathing. ABDOMEN/GI: Bowel sounds present in all 4 quadrants. No tenderness to palpation throughout. INTEGUMENTARY: Has erythematous rash on the anterior first half of the chest and mostly in the middle portion. NEUROLOGICAL: Higher mental function: The patient is awake, alert, oriented to self, place and time. Patient is following commands. No aphasia and no neglect. Cranial nerves: The pupils are round, equal and reactive to light and accommodation. Visual montejo are full to confrontation throughout. Extraocular movement is intact no nystagmus is noted. Facial sensation is normal to touch throughout. Has erythematous rash over the bilateral lower forehead. The facial strength is normal throughout. Hearing is normal bilaterally to hand rub. Tongue is midline and moved [id number] without any difficulty. No dysarthria is noted. Shoulder shrug is normal bilaterally. Motor: The strength is 5 over 5 throughout. Normal tone and bulk. Cerebellum: Normal finger to nose bilaterally. Sensation: Sensation is normal to touch throughout. Reflexes (right/left): 2+ throughout. Plantars are downgoing bilaterally. Results - Laboratory Findings CBC and BMP: 08/08/22 22:35 08/08/22 22:35 Abnormal Lab Findings: Abnormal Labs 08/08/22 08/08/22 08/08/22 22:35 22:35 22:35 WBC 16.8 H MCV 103.8 H MCH 35.6 H Neutrophils # 15.1 H Glucose 121 H Plasma Lactic Acid Dane Urine Opiates Screen Detected H 08/08/22 22:35 WBC MCV MCH Neutrophils # Glucose Plasma Lactic Acid Dane 2.7 H* Urine Opiates Screen Assessment and Plan Assessment: Erythematous rash over the forehead in the chest region with complaints of weakness and subjective weakness of paresthesia: unknown cause. Rule out dermatomyosis. Also rule out demyelinating disease/multiple sclerosis for her complaints of weakness and paresthesia with dizziness off balance Generalized weakness but on examination non-focal Eye flutter rule out seizure. Patient stated last seizure was about 8-10 years ago History of seizures and the last seizure was at least 8-10 years ago History of cervical fusion possibly in 2018 or 19 History of lumbar fusion in 2013 Plan: I ordered CT of the head. Recommend MRI of the brain and cervical spine as well as thoracic as outpatient to rule out multiple Sclerosis. The patient is in the process of seeing Dr. Gunn (neurologist) Ordered routine EEG to rule out any active seizures or any discharges. She is on Lamictal 100 mg daily for her mood which is also has antiepileptic effect Because of the concern of possible dermatomyosis, I ordered CK level, aldolase, LDH, myoglobin, anti-Jo1 abs. Also for her concern of a paresthesia and gen eralized weakness I ordered SSA/SSB, KIRSTEN, methylmalonic acid, TSH, vitamin B12, folate. Recommend EMG with nerve conduction study of bilateral upper and lower extremity to rule out any dermatomyositis or polyneuropathy. If she does have dermatomyositis recommend the patient to follow-up with rheumat ologist as an outpatient and to consider starting her on prednisone. Orthopedic team is on board Plan is discussed with the patient, her primary attending and her nurse. Thank you for the consultation UPDATE: CK level is 31 (normal), LDH 402 and TSH is 3.490 (all normal). CT of the brain is reported as age-related atrophic and chronic small vessel ischemic change without acute intracranial process seen at this time Preliminary routine EEG is normal. Her normal CK level goes against dermatomyositis. I highly recommend patient to get further workup as an outpatient with her neurologist and recommend MRI of the spinal cord and the brain as an outpatient. Recommend patient to follow-up with a psychiatrist as an outpatient for her psychiatric issues. No additional work-up is needed. Time with Patient: Greater than 30
--- NOTE | 2022-08-09 12:02 | P.HPIM ---
History of Present Illness H&P Date: 08/09/22 Chief Complaint: Multiple symptoms This is a pleasant 52-year-old patient, follows with Dr. Zach Washington. Chronic stable medical conditions include left shoulder pain for which she follows with Dr. Wu, seizure disorder last one being several years ago, urinary incontinence, muscle spasms, bipolar disorder, COPD, restless leg syndrome. Patient is mainly troubled by her left shoulder for which she follows with Dr. Wu. Patient is due to get a MRI of the left shoulder tonight. She was here in the ER, 2 days ago and was sent home with prednisone and Flexeril. Patient also got neck pain. Patient is very anxious. Having nausea also. Decreased oral intake loss to 3 days. No fever no chills. Patient also rather anxious. Also I'll getting out of the bathtub she fell and hit the right knee. Patient never lost consciousness. Patient had previous lumbar fusion. She's had received injections left shoulder without much relief. Review of systems: GEN.: Decreased oral intake EYES: None HEENT: None NECK: None RESPIRATORY: None CARDIOVASCULAR: None GASTROINTESTINAL: None GENITOURINARY: Urinary incontinence MUSCULOSKELETAL: Back pain, left shoulder pain LYMPHATICS: None HEMATOLOGICAL: None PSYCHIATRY: Anxious NEUROLOGICAL: A bit trouble walking last few days Past medical history to include: Restless leg syndrome, urinary incontinence, muscle spasm, bipolar, COPD, left shoulder pain Social history: This is a boyfriend. On disability. Smoked half a pack a day for most of life. No down to 2 cigarettes a day. Physical examination: VITAL SIGNS: 97.7, 86, 16, 123.81, 95% room air GENERAL: 97.7, 86, 16, 123/81, 95%. EYES: Pupils equal. Conjunctiva normal. HEENT: External appearance of nose and ears normal, oral cavity grossly normal. NECK: JVD not raised; masses not palpable. HEART: First and second heart sounds are normal; no edema. LUNGS: Respiratory rate normal; clear to auscultation. ABDOMEN: Soft, nontender, liver spleen not palpable, no masses palpable. PSYCH: Alert and oriented x3; mood and affect anxiousl. MUSCULOSKELETAL:No Clubbing/cyanosis;muscles-grossly intact, limited range of motion of the shoulder. NEUROLOGICAL: Cranial nerves grossly intact; no facial asymmetry, power and sensation grossly intact. LYMPHATICS: No lymph nodes palpable in the axilla and neck INVESTIGATIONS, reviewed in the clinical context: WBC 16.8 hemoglobin 14.9 platelets 206 potassium 4.5 creatinine 06.7 Lactic acid 2.7 CRP 0.6 UA: Negative Uterus 60 not detected Urine drug screen positive for opiates COVID 19 PCR: Not Detected Chest x-ray film personally reviewed by me-negative Chest abdomen pelvis with contrast: Sigmoid diverticulosis. CT thoracolumbar spine with contrast: Previous lumbar surgery. No other acute abnormality. Assessment and plan: -Acute on chronic left shoulder pain. Has been followed outpatient Dr. Wu. Patient scheduled for outpatient MRI today. Patient is here in the ER 20 days ago sent home with steroids and Flexeril. Dr. Wu consulted. -Back pain. Has had previous lumbar surgery. Follow-up with Dr. Wu. -Restless leg syndrome Requip -Sigmoid diverticulosis, asymptomatic -Chronic urinary incontinence Ditropan -Muscle spasm Flexeril -Bipolar disorder doesn't been, Klonopin -Leukocytosis secondary to steroids. No clinical evidence of infection Patient's multiple symptoms. For left shoulder Dr. Wu been consulted. Patient is a scheduled outpatient MRI today. Also neurology consulted. Plan to do an EEG. Other home medications to continue. Discussed with patient. IV hydration. -COPD in a smoker -Chronic nicotine dependence, cigarette smoker Past Medical History Past Medical History: Neurologic Disorder, Seizure Disorder Additional Past Medical History / Comment(s): 2009 -recurring boil upper rt thigh- pt stated pcp at the [facility] told her it looked like it may be mrsa but pt never got confirmation either way-had area "cut away"and it has'nt retutned..Hx vertigo and gait disorder in 2002,lumbar disc disease hx lower back, neck and shoulder pain, HERNIATED DISCS, HEADACHES-PAIN SHOOTS UP NECK AND INTO SHOULDER BLADES. No seizures in 5 yrs, hx of and KIDNEY STONES. History of Any Multi-Drug Resistant Organisms: None Reported Date of last positivie culture/infection: 2009 MDRO Source:: boil on back of left leg Past Surgical History: Back Surgery, Section, Hysterectomy, Tubal Ligation Additional Past Surgical History / Comment(s): Hx ectopic rupture left ovary and fallopian tube removed, lumbar spinal fusion, herniated bowel repair during spine surgery, march 2016-cervical fusion, lithotriipsy/basketing and stent january 2017, 101-7 cystopscopy/lt ureterocopopy w/stent insertion-since removed on 08-27-17 Past Anesthesia/Blood Transfusion Reactions: Motion Sickness, Postoperative Chris sea & Vomiting (PONV) Additional Past Anesthesia/Blood Transfusion Reaction / Comment(s): Quite extensive N&V with last proceudre that lasted for a few days. Past Psychological History: Anxiety, Depression Smoking Status: Current every day smoker Past Alcohol Use History: None Reported Past Drug Use History: None Reported - Past Family History Mother Family Medical History: Hyperlipidemia Father Family Medical History: Cancer Additional Family Medical History / Comment(s): Father from lung ca 1988 Medications and Allergies Home Medications Medication Instructions Recorded Confirmed Type Mirtazapine 30 mg PO HS 08/11/17 08/09/22 History clonazePAM [KlonoPIN] 0.5 mg PO TID PRN 08/28/17 08/09/22 History Ondansetron [Zofran] 4 - 8 mg PO BID PRN 08/08/21 08/09/22 History lamoTRIgine [LaMICtal] 100 mg PO DAILY 08/08/21 08/09/22 History Acetaminophen Tab [Tylenol Tab] 1,000 mg PO Q6HR PRN 08/07/22 08/09/22 History Albuterol Inhaler [Ventolin Hfa 2 puff INHALATION RT-Q4H PRN 08/07/22 08/09/22 History Inhaler] Ascorbic Acid [Vitamin C] 500 mg PO BID 08/07/22 08/09/22 History Cyclobenzaprine [Flexeril] 10 mg PO HS PRN #7 tab 08/07/22 08/09/22 Rx Oxybutynin Xl [Ditropan XL] 5 mg PO DAILY@1200 08/07/22 08/09/22 History predniSONE 50 mg PO DAILY #5 tab 08/07/22 08/09/22 Rx rOPINIRole HCL [Requip] 0.5 mg PO HS 08/07/22 08/09/22 History tiZANidine [Zanaflex] 2 mg PO BID PRN 08/07/22 08/09/22 History Allergies Allergy/AdvReac Type Severity Reaction Status Date / Time nitrofurantoin Allergy Severe Anaphylaxis Verified 08/09/22 11:42 [From Macrobid] Penicillins Allergy Unknown Verified 08/09/22 11:42 Childhood quetiapine [From Seroquel] AdvReac dizzy/shaky, Verified 08/09/22 11:42 tremors Physical Exam Vitals: Vital Signs Temp Pulse Pulse Resp BP BP Pulse Ox 08/09/22 07:15 97.7 F 86 16 123/81 95 08/09/22 02:59 97.6 F 83 19 150/93 96 08/09/22 02:42 97.9 F 71 16 128/72 99 08/09/22 01:36 97.8 F 74 16 130/75 100 08/09/22 00:14 16 08/08/22 22:08 91 18 08/08/22 22:03 149/85 08/08/22 21:56 98.2 F 121 H 20 131/73 96 08/08/22 21:49 98.2 F 119 H 18 130/73 96 Intake and Output 08/08/22 08/09/22 08/09/22 22:59 06:59 14:59 Output Total 186 Balance -186 Output: Post Void Residual 186 Other: Voiding Method Bedpan Diaper # Voids 1 Weight 72.575 kg 72.575 kg Results CBC & Chem 7: 08/08/22 22:35 08/08/22 22:35 Labs: Abnormal Lab Results - Last 24 Hours (Table) 08/08/22 08/08/22 08/08/22 Range/Units 22:35 22:35 22:35 WBC 16.8 H (3.8-10.6) k/uL MCV 103.8 H (80.0-100.0) fL MCH 35.6 H (25.0-35.0) pg Neutrophils # 15.1 H (1.3-7.7) k/uL Glucose 121 H (74-99) mg/dL Plasma Lactic Acid Dane (0.7-2.0) mmol/L Urine Opiates Screen Detected H (NotDetected) 08/08/22 Range/Units 22:35 WBC (3.8-10.6) k/uL MCV (80.0-100.0) fL MCH (25.0-35.0) pg Neutrophils # (1.3-7.7) k/uL Glucose (74-99) mg/dL Plasma Lactic Acid Dane 2.7 H* (0.7-2.0) mmol/L Urine Opiates Screen (NotDetected) Thrombosis Risk Factor Assmnt - Choose All That Apply Each Factor Represents 1 point: Age 41-60 years, Obesity (BMI >25) Thrombosis Risk Factor Assessment Total Risk Factor Score: 2 Thrombosis Risk Factor Assessment Level: Low Risk
[2022-08-09 12:19] LABS: C Reactive Protein 0.6 mg/dL (<1.0); Creatine Kinase 31 U/L (30-135); LDH 402 U/L (313-618)
--- NOTE | 2022-08-09 13:54 | CT ---
EXAMINATION TYPE: CT brain wo con DATE OF EXAM: 08/09/2022 COMPARISON: 09/14/16 HISTORY: Dizziness, numbness throughout body. CT DLP: 1180.[address] of the brain was performed. The ventricles, basal cisterns and sulci overlying the cerebral convexities demonstrate mild enlargem ent. There is no evidence for intracranial hemorrhage or sulcal effacement. There is decreased attenuation about the periventricular white matter and deep white matter of both c erebral hemispheres, compatible with chronic small vessel ischemia. Differential diagnosis does inclu de demyelination. No mass effects are seen.No midline shift. Osseous calvarium is intact. If symptoms persist consider MRI. IMPRESSION: 1. Age related atrophic and chronic small vessel ischemic change without acute intracranial process s een at this time.
[2022-08-09 15:01] VITALS: BP 115/75; PULSE 90; TEMP 98
--- NOTE | 2022-08-09 17:04 | P.DS ---
Providers Date of admission: 08/09/22 02:12 Expected date of discharge: 08/09/22 Attending physician: Jose Luis Cancino Consults: 08/09/22 02:09 Consult Physician Urgent Consulting Provider: Clyde Dailey Consult Reason/Comments: Generalized weakness, paresthesias, generalized pain Do you want consulting provider notified?: Yes, Notify in am 08/09/22 02:38 Consult Physician Urgent Consulting Provider: Donald Wu Consult Reason/Comments: Left shoulder pain, generalized pain, back pain Do you want consulting provider notified?: Yes, Notify in am Primary care physician: [facility] Course: Chief Complaint: Multiple symptoms This is a pleasant 52-year-old patient, follows with Dr. Zach Washington. Chronic stable medical conditions include left shoulder pain for which she follows with Dr. Wu, seizure disorder last one being several years ago, urinary incontinence, muscle spasms, bipolar disorder, COPD, restless leg syn drome. Patient is mainly troubled by her left shoulder for which she follows with Dr. Wu. Patient is due to get a MRI of the left shoulder tonight. She was here in the ER, 2 days ago and was sent home with prednisone and Flexeril. Patient also got neck pain. Patient is very anxious. Having nausea also. Decreased oral intake loss to 3 days. No fever no chills. Patient also rather anxious. Also I'll getting out of the bathtub she fell and hit the right knee. Patient never lost consciousness. Patient had previous lumbar fusion. She's had received injections left shoulder without much relief. Discussed with Dr. Dailey from neurology earlier today. Patient had EGD and can go home. Later to have her MRI as outpatient. Patient has an appointment follow-up with Dr. Mays and her family doctor. Past medical history to include: Restless leg syndrome, urinary incontinence, muscle spasm, bipolar, COPD, left shoulder pain Social history: This is a boyfriend. On disability. Smoked half a pack a day for most of life. No down to 2 cigarettes a day. Physical examination: VITAL SIGNS: 97.7, 86, 16, 123.81, 95% room air GENERAL: 97.7, 86, 16, 123/81, 95%. EYES: Pupils equal. Conjunctiva normal. HEENT: External appearance of nose and ears normal, oral cavity grossly normal. NECK: JVD not raised; masses not palpable. HEART: First and second heart sounds are normal; no edema. LUNGS: Respiratory rate normal; clear to auscultation. ABDOMEN: Soft, nontender, liver spleen not palpable, no masses palpable. PSYCH: Alert and oriented x3; mood and affect anxiousl. MUSCULOSKELETAL:No Clubbing/cyanosis;muscles-grossly intact, limited range of motion of the shoulder. NEUROLOGICAL: Cranial nerves grossly intact; no facial asymmetry, power and sensation grossly intact. LYMPHATICS: No lymph nodes palpable in the axilla and neck INVESTIGATIONS, reviewed in the clinical context: WBC 16.8 hemoglobin 14.9 platelets 206 potassium 4.5 creatinine 06.7 Lactic acid 2.7 CRP 0.6 UA: Negative Uterus 60 not detected Urine drug screen positive for opiates COVID 19 PCR: Not Detected Chest x-ray film personally reviewed by me-negative Chest abdomen pelvis with contrast: Sigmoid diverticulosis. CT thoracolumbar spine with contrast: Previous lumbar surgery. No other acute abnormality. Assessment and plan: -Acute on chronic left shoulder pain. Has been followed outpatient Dr. Wu. Patient is here in the ER 2 days ago sent home with steroids and Flexeril. Dr. Wu consulted. Patient has an outpatient MRI scheduled later today. Has a medications. Will follow-up with Dr. Wu. -Neurological symptoms including weakness in the body and some numbness going down the left arm sometimes also down to the thighs. Seen by neurology. Outpatient follow-up with Dr. Villatoro as scheduled.. -Back pain. Has had previous lumbar surgery. Follow-up with Dr. Wu. -Restless leg syndrome Requip -Sigmoid diverticulosis, asymptomatic -Chronic urinary incontinence Ditropan -Muscle spasm Flexeril -Bipolar disorder doesn't been, Klonopin -Leukocytosis secondary to steroids. No clinical evidence of infection -COPD in a smoker -Chronic nicotine dependence, cigarette smoker Disposition: Home Patient Condition at Discharge: Fair Plan - Discharge Summary New Discharge Prescriptions: Continue Mirtazapine 30 mg PO HS clonazePAM [KlonoPIN] 0.5 mg PO TID PRN PRN Reason: Anxiety Ondansetron [Zofran] 4 - 8 mg PO BID PRN PRN Reason: Nausea And Vomiting lamoTRIgine [LaMICtal] 100 mg PO DAILY tiZANidine [Zanaflex] 2 mg PO BID PRN PRN Reason: MUSCLE CRAMPS Oxybutynin Xl [Ditropan XL] 5 mg PO DAILY@1200 Albuterol Inhaler [Ventolin Hfa Inhaler] 2 puff INHALATION RT-Q4H PRN PRN Reason: Shortness Of Breath Acetaminophen Tab [Tylenol] 1,000 mg PO Q6HR PRN PRN Reason: Pain Or Fever > 100.5 Cyclobenzaprine [Flexeril] 10 mg PO HS PRN #7 tab PRN Reason: Muscle Spasm predniSONE 50 mg PO DAILY #5 tab rOPINIRole HCL [Requip] 0.5 mg PO HS Ascorbic Acid [Vitamin C] 500 mg PO BID Discharge Medication List Mirtazapine 30 mg PO HS 08/11/17 [History] clonazePAM [KlonoPIN] 0.5 mg PO TID PRN 08/28/17 [History] Ondansetron [Zofran] 4 - 8 mg PO BID PRN 08/08/21 [History] lamoTRIgine [LaMICtal] 100 mg PO DAILY 08/08/21 [History] Acetaminophen Tab [Tylenol] 1,000 mg PO Q6HR PRN 08/07/22 [History] Albuterol Inhaler [Ventolin Hfa Inhaler] 2 puff INHALATION RT-Q4H PRN 08/07/22 [History] Ascorbic Acid [Vitamin C] 500 mg PO BID 08/07/22 [History] Cyclobenzaprine [Flexeril] 10 mg PO HS PRN #7 tab 08/07/22 [Rx] Oxybutynin Xl [Ditropan XL] 5 mg PO DAILY@1200 08/07/22 [History] predniSONE 50 mg PO DAILY #5 tab 08/07/22 [Rx] rOPINIRole HCL [Requip] 0.5 mg PO HS 08/07/22 [History] tiZANidine [Zanaflex] 2 mg PO BID PRN 08/07/22 [History] Follow up Appointment(s)/Referral(s): Donald Wu DO [Doctor of Osteopathic Medicine] - 08/15/22 9:15 am Zach Washington MD [Primary Care Provider] - 08/11/22 11:00 am Activity/Diet/Wound Care/Special Instructions: outpatient MRI 08/09/22 8pm at [facility] EEG negative Discharge Disposition: HOME SELF-CARE
[2022-08-09] MEDS ORDERED: OXYBUTYNIN XL 5 MG TAB.ER.24 PO SCH (21:00)
[2022-08-09 21:21] LABS: JO-1 IgG Antibody <0.2 AI
--- NOTE | 2022-08-10 02:01 | EEG ---
ELECTROENCEPHALOGRAM REPORT CLINICAL HISTORY: This is a 52-year-old woman with a prior history of seizure who has eye flutter. The video EEG is obtained to evaluate for seizure epileptiform activity. RELEVANT MEDICATIONS: Lamictal and Klonopin. EEG TYPE: This is a routine 21-channel EEG performed with video using the 10/20 electrode system. DESCRIPTION: Wakefulness is only obtained. The posterior dominant rhythm consists of low to moderate voltage of 11 to 12 Hz activity that is well modulated, well sustained. There is no physiological stage 2 sleep architecture. There is no focal slowing. Interictal and ictal is none. ACTIVATION PROCEDURE: Photic stimulation did not evoke a posterior driving response. There is no abnormality during the photic stimulation. Hyperventilation is not performed. CLINICAL INTERPRETATION: This is a normal routine EEG. There is no focal slowing, epileptiform discharge or seizure on the EEG. Normal EEG does not exclude underlying epilepsy. Clinical correlation is recommended. DAMON / NANON: [id number] / SAV
== END 2022-08-09 15:40 | disposition home or self-care (01) ==
LOC: EC 21:42 → 6NMEDSUR 08-09 02:12
PROVIDERS: ADMIT Hospitalist; ATTEND Hospitalist
DX: M25.512 Pain in left shoulder (principal); G89.29 Other chronic pain; D72.829 Elevated white blood cell count, unspecified; T38.0X5A Adverse effect of glucocorticoids and synthetic analogues, initial encounter; N32.81 Overactive bladder; E87.20 Acidosis, unspecified; R32 Unspecified urinary incontinence; G40.909 Epilepsy, unspecified, not intractable, without status epilepticus; M62.838 Other muscle spasm; K59.00 Constipation, unspecified; F41.9 Anxiety disorder, unspecified; F32.A Depression, unspecified; F31.9 Bipolar disorder, unspecified; J44.9 Chronic obstructive pulmonary disease, unspecified; G25.81 Restless legs syndrome; R07.9 Chest pain, unspecified; K57.30 Diverticulosis of large intestine without perforation or abscess without bleeding; G62.9 Polyneuropathy, unspecified; F17.210 Nicotine dependence, cigarettes, uncomplicated; R16.0 Hepatomegaly, not elsewhere classified; Z79.899 Other long term (current) drug therapy; Z88.3 Allergy status to other anti-infective agents; Z88.0 Allergy status to penicillin; Z90.710 Acquired absence of both cervix and uterus; Z98.51 Tubal ligation status; Z98.1 Arthrodesis status; Z80.1 Family history of malignant neoplasm of trachea, bronchus and lung; Z20.822 Contact with and (suspected) exposure to COVID-19
CPT/HCPCS: 96376 ×2; 96372; 96375 ×2; 96361; 96374; 99285; 36415 ×2; 95816; 83921; 80053; 85652 ×2; 84443; 82607; 82085; 82550; 82746; 83605 ×2; 83615; 83690; 85025; 86140 ×2; 82272; 81003; 81025; 86618; 86038; 80306; 86235 ×2; 83874; 87635; 71045; 72129; 72132; 70450; 71260; 74177; G0378; J2270 ×2; J2405; J1885; J7512; Q9967; J1644

== ENCOUNTER → 2022-08-09 | Outpatient (CLI) | payer MEDICARE, OTHER ==
--- NOTE | 2022-08-10 04:23 | MR ---
EXAMINATION TYPE: MR shoulder LT wo con DATE OF EXAM: 08/09/2022 COMPARISON: None HISTORY: Left shoulder pain, limited ROM. Multiplanar multiecho imaging of the left shoulder performed with no contrast. The biceps tendon is intact. Subscapularis tendon is intact. Glenoid james appear normal. Humeral hea d is intact. AC joint appears normal. No significant subacromial impingement. There is minimal increased signal in the supraspinatus tendon near the attachment on the humeral head. No evidence of a full-thickness te ar. The infraspinatus tendon is intact. No focal bone destruction. IMPRESSION: There is increased signal in the supraspinatus tendon near the attachment on the greater tuberosity a nd consistent with partial tear. No evidence of a full-thickness rotator cuff tear.
== END | disposition home or self-care (01) ==
LOC: RADMRIMAIN 19:46
PROVIDERS: ATTEND Orthopaedic Surgery
DX: M67.814 Other specified disorders of tendon, left shoulder (principal)

== ENCOUNTER 2024-06-09 13:51 | Emergency (ER) | payer MEDICARE, OTHER ==
[2024-06-09 14:13] VITALS: RESP 18; TEMP 98.1
--- NOTE | 2024-06-09 15:12 | ED ---
Abdominal Pain HPI - General Chief Complaint: Abdominal Pain Stated Complaint: GI Issue Time Seen by Provider: 06/09/24 14:10 Source: patient, RN notes reviewed Mode of arrival: wheelchair Limitations: no limitations - History of Present Illness Initial Comments: 54-year-old female presents emergency department chief complaint of abdominal pain and constipation over the past few days. Patient states that she was evaluated by her primary care provider on Sunday with complaints of abdominal pain with a true blood work and hand appointment scheduled for today but stated that the pain was severe reported Emergency Department. She endorses chills and nausea. States that she still passing gas. Denies hematochezia or dark or tarry stools. Patient has had multiple surgeries on her abdomen. Patient was prescribed steroids, muscle relaxer, and stool softener by urgent care which she is still taking. - Related Data Home Medications Medication Instructions Recorded Confirmed Mirtazapine 30 mg PO HS 08/11/17 08/09/22 clonazePAM [KlonoPIN] 0.5 mg PO TID PRN 08/28/17 08/09/22 Ondansetron [Zofran] 4 - 8 mg PO BID PRN 08/08/21 08/09/22 lamoTRIgine [LaMICtal] 100 mg PO DAILY 08/08/21 08/09/22 Acetaminophen Tab [Tylenol] 1,000 mg PO Q6HR PRN 08/07/22 08/09/22 Albuterol Inhaler [Ventolin Hfa 2 puff INHALATION RT-Q4H PRN 08/07/22 08/09/22 Inhaler] Ascorbic Acid [Vitamin C] 500 mg PO BID 08/07/22 08/09/22 Oxybutynin Xl [Ditropan XL] 5 mg PO DAILY@1200 08/07/22 08/09/22 rOPINIRole HCL [Requip] 0.5 mg PO HS 08/07/22 08/09/22 tiZANidine [Zanaflex] 2 mg PO BID PRN 08/07/22 08/09/22 Previous Rx's Medication Instructions Recorded Cyclobenzaprine [Flexeril] 10 mg PO HS PRN #7 tab 08/07/22 predniSONE 50 mg PO DAILY #5 tab 08/07/22 Allergies Allergy/AdvReac Type Severity Reaction Status Date / Time nitrofurantoin Allergy Severe Anaphylaxis Verified 06/09/24 14:13 [From Macrobid] Penicillins Allergy Unknown Verified 06/09/24 14:13 Childhood quetiapine [From Seroquel] AdvReac dizzy/shaky, Verified 06/09/24 14:13 tremors Review of Systems ROS Statement: Those systems with pertinent positive or pertinent negative responses have been documented in the HPI. ROS Other: All systems not noted in ROS Statement are negative. Past Medical History Past Medical History: Neurologic Disorder, Seizure Disorder Additional Past Medical History / Comment(s): 2009 -recurring boil upper rt thigh- pt stated pcp at the [facility] told her it looked like it may be mrsa but pt n ever got confirmation either way-had area "cut away"and it has'nt retutned..Hx vertigo and gait disorder in 2002,lumbar disc disease hx lower back, neck and shoulder pain, HERNIATED DISCS, HEADACHES-PAIN SHOOTS UP NECK AND INTO SHOULDER BLADES. No seizures in 5 yrs, hx of and KIDNEY STONES. History of Any Multi-Drug Resistant Organisms: None Reported Date of last positivie culture/infection: 2009 MDRO Source:: boil on back of left leg Past Surgical History: Back Surgery, Section, Hysterectomy, Tubal Ligation Additional Past Surgical History / Comment(s): Hx ectopic rupture left ovary and fallopian tube removed, lumbar spinal fusion, herniated bowel repair during spine surgery, march 2016-cervical fusion, lithotriipsy/basketing and stent january 2017, cystopscopy/lt ureterocopopy w/stent insertion-since removed on 08-27-17 Past Anesthesia/Blood Transfusion Reactions: Motion Sickness, Postoperative Nausea & Vomiting (PONV) Additional Past Anesthesia/Blood Transfusion Reaction / Comment(s): Quite ex tensive N&V with last proceudre that lasted for a few days. Past Psychological History: Anxiety, Depression Smoking Status: Current every day smoker Past Alcohol Use History: None Reported Past Drug Use History: None Reported - Past Family History Mother Family Medical History: Hyperlipidemia Father Family Medical History: Cancer Additional Family Medical History / Comment(s): Father from lung ca 1988 General Exam Limitations: no limitations General appearance: alert, in no apparent distress Head exam: Present: atraumatic, normocephalic, normal inspection Neck exam: Present: normal inspection. Absent: tenderness, meningismus, lymphadenopathy Respiratory exam: Present: normal lung sounds bilaterally. Absent: respiratory distress, wheezes, rales, rhonchi, stridor Cardiovascular Exam: Present: regular rate, normal rhythm, normal heart sounds. Absent: systolic murmur, diastolic murmur, rubs, gallop, clicks GI/Abdominal exam: Present: soft, tenderness (diffuse, most severe over LLQ), normal bowel sounds. Absent: distended, guarding, rebound, rigid Extremities exam: Present: normal inspection, full ROM, normal capillary refill. Absent: tenderness, pedal edema, joint swelling, calf tenderness Back exam: Present: normal inspection Neurological exam: Present: alert, oriented X3, CN II-XII intact Course Vital Signs 06/09/24 06/09/24 14:09 17:49 Temperature 98.1 F Pulse Rate 131 H 81 Respiratory 18 18 Rate Blood Pressure 126/69 107/69 O2 Sat by Pulse 98 98 Oximetry Medical Decision Making - Medical Decision Making Was pt. sent in by a medical professional or institution (, PA, CONFIGURATION MANAGEMENT ARCHITECT, urgent care, hospital, or intermediate...) When possible be specific @ -No Did you speak to anyone other than the patient for history (EMS, parent, family, police, friend...)? What history was obtained from this source @ -No Did you review nursing and triage notes (agree or disagree)? Why? @ -I reviewed and agree with nursing and triage notes Were old charts reviewed (outside hosp., previous admission, EMS record, old EKG, old radiological studies, urgent care reports/EKG's, intermediate records)? Report findings @ -No old charts were reviewed Differential Diagnosis (chest pain, altered mental status, abdominal pain women, abdominal pain men, vaginal bleeding, weakness, fever, dyspnea, syncope, headache, dizziness, GI bleed, back pain, seizure, CVA, palpatations, mental health, musculoskeletal)? @ -Differential Abdominal Pain Women: Appendicitis, Cholecystitis, diverticulosis, ischemic bowel, pancreatitis, hepatitis, UTI, gastroenteritis, AAA, incarcerated hernia, bowel obstruction, constipation, inflammatory bowel, hepatitis, peptic ulcer disease, splenic infarction, perforated viscus, vulvitis, ovarian torsion, PID, kidney stone, placenta abruption, this is not meant to be an all-inclusive list EKG interpreted by me (3pts min.). @ -None X-rays interpreted by me (1pt min.). @ -None done CT interpreted by me (1pt min.). @ -CT of the abdomen pelvis with contrast reveals mild emphysematous changes in the lung bases, no bowel obstruction free air or fluid with a moderate amount of stool within the colon, distended urinary bladder with fluid. U/S interpreted by me (1pt. min.). @ -None done What testing was considered but not performed or refused? (CT, X-rays, U/S, labs)? Why? @ -None What meds were considered but not given or refused? Why? @ -None Did you discuss the management of the patient with other professionals (professionals i.e. , PA, CONFIGURATION MANAGEMENT ARCHITECT, lab, RT, psych nurse, social research assistant, drum carrier, teacher, senior compliance officer, welfare case worker)? Give summary @ -No Was smoking cessation discussed for >3mins.? @ -No Was critical care preformed (if so, how long)? @ -No Were there social determinants of health that impacted care today? How? (Homel essness, low income, unemployed, alcoholism, drug addiction, transportation, low edu. Level, literacy, decrease access to med. care, penitentiary, rehab)? @ -No Was there de-escalation of care discussed even if they declined (Discuss DNR or withdrawal of care, Hospice)? DNR status @ -No What co-morbidities impacted this encounter? (DM, HTN, Smoking, COPD, CAD, Cancer, CVA, ARF, Chemo, Hep., AIDS, mental health diagnosis, sleep apnea, morbid obesity)? @ -None Was patient admitted / discharged? Hospital course, mention meds given and route, prescriptions, significant lab abnormalities, going to OR and other pertinent info. @ -Discharged. 54-year-old female with abdominal pain. Patient's vitals are s table upon arrival she is resting comfortably. Patient is quite tearful on questioning and she is concerned that she has been experiencing abdominal pain over the past few days and is not sure why. She is provided with pain medication and fluids pending CT imaging and labs. CBC, CMP unremarkable, amylase lipase within normal limits, urinalysis negative for infection. CT of the abdomen unremarkable, no bowel obstruction free air or fluid with a moderate moderate stool within the colon. Patient was offered the opportunity to have a suppository while emergency department she declined at this time states that she has them at home. Patient is feeling much better after pain medication and states that she feels relieved "that there is no type of obstruction or blockage in her bowel. Patient states that she feels comfortable following up outpatient with her primary care provider. All questions answered at bedside and strict return parameters tameka with the patient she is verbalized understanding. Discussed with Dr. Gibson Undiagnosed new problem with uncertain prognosis? @ -No Drug Therapy requiring intensive monitoring for toxicity (Heparin, Nitro, Insulin, Cardizem)? @ -No Were any procedures done? @ -No Diagnosis/symptom? @ -abdominal pain Acute, or Chronic, or Acute on Chronic? @ -Acute Uncomplicated (without systemic symptoms) or Complicated (systemic symptoms)? @ -Uncomplicated Side effects of treatment? @ -No Exacerbation, Progression, or Severe Exacerbation? @ -No Poses a threat to life or bodily function? How? (Chest pain, USA, SD, pneumonia, PE, COPD, DKA, ARF, appy, cholecystitis, CVA, Diverticulitis, Homicidal, Suicidal, threat to staff... and all critical care pts) @ -No - Lab Data Result diagrams: 06/09/24 15:47 06/09/24 15:47 Lab Results 06/09/24 06/09/24 06/09/24 Range/Units 15:47 15:47 15:47 WBC 11.7 H (3.8-10.6) k/uL RBC 4.12 (3.80-5.40) m/uL Hgb 14.4 (11.4-16.0) gm/dL Hct 42.9 (34.0-46.0) % MCV 104.2 H (80.0-100.0) fL MCH 35.0 (25.0-35.0) pg MCHC 33.6 (31.0-37.0) g/dL RDW 12.2 (11.5-15.5) % Plt Count 223 (150-450) k/uL MPV 7.6 Neutrophils % 70 % Lymphocytes % 23 % Monocytes % 5 % Eosinophils % 1 % Basophils % 0 % Neutrophils # 8.2 H (1.3-7.7) k/uL Lymphocytes # 2.7 (1.0-4.8) k/uL Monocytes # 0.5 (0-1.0) k/uL Eosinophils # 0.1 (0-0.7) k/uL Basophils # 0.0 (0-0.2) k/uL Macrocytosis Slight Sodium 143 (137-145) mmol/L Potassium 4.2 (3.5-5.1) mmol/L Chloride 107 (98-107) mmol/L Carbon Dioxide 27 (22-30) mmol/L Anion Gap 9 mmol/L BUN 10 (7-17) mg/dL Creatinine 0.72 (0.52-1.04) mg/dL Est GFR (CKD-EPI)AfAm >90 (>60 ml/min/1.73 sqM) Est GFR (CKD-EPI)NonAf >90 (>60 ml/min/1.73 sqM) Glucose 97 (74-99) mg/dL Plasma Lactic Acid Dane (0.7-2.0) mmol/L Calcium 10.1 (8.4-10.2) mg/dL Magnesium 1.9 (1.6-2.3) mg/dL Total Bilirubin 0.5 (0.2-1.3) mg/dL AST 21 (14-36) U/L ALT 19 (4-34) U/L Alkaline Phosphatase 40 (38-126) U/L Total Protein 7.0 (6.3-8.2) g/dL Albumin 4.5 (3.5-5.0) g/dL Amylase 42 (30-110) U/L Lipase 27 (23-300) U/L Urine Color Colorless Urine Appearance Clear (Clear) Urine pH 6.5 (5.0-8.0) Ur Specific [place] 1.013 (1.001-1.035) Urine Protein Negative (Negative) Urine Glucose (UA) Negative (Negative) Urine Ketones Negative (Negative) Urine Blood Negative (Negative) Urine Nitrite Negative (Negative) Urine Bilirubin Negative (Negative) Urine Urobilinogen <2.0 (<2.0) mg/dL Ur Leukocyte Esterase Negative (Negative) 06/09/24 Range/Units 15:47 WBC (3.8-10.6) k/uL RBC (3.80-5.40) m/uL Hgb (11.4-16.0) gm/dL Hct (34.0-46.0) % MCV (80.0-100.0) fL MCH (25.0-35.0) pg MCHC (31.0-37.0) g/dL RDW (11.5-15.5) % Plt Count (150-450) k/uL MPV Neutrophils % % Lymphocytes % % Monocytes % % Eosinophils % % Basophils % % Neutrophils # (1.3-7.7) k/uL Lymphocytes # (1.0-4.8) k/uL Monocytes # (0-1.0) k/uL Eosinophils # (0-0.7) k/uL Basophils # (0-0.2) k/uL Macrocytosis Sodium (137-145) mmol/L Potassium (3.5-5.1) mmol/L Chloride (98-107) mmol/L Carbon Dioxide (22-30) mmol/L Anion Gap mmol/L BUN (7-17) mg/dL Creatinine (0.52-1.04) mg/dL Est GFR (CKD-EPI)AfAm (>60 ml/min/1.73 sqM) Est GFR (CKD-EPI)NonAf (>60 ml/min/1.73 sqM) Glucose (74-99) mg/dL Plasma Lactic Acid Dane 1.4 (0.7-2.0) mmol/L Calcium (8.4-10.2) mg/dL Magnesium (1.6-2.3) mg/dL Total Bilirubin (0.2-1.3) mg/dL AST (14-36) U/L ALT (4-34) U/L Alkaline Phosphatase (38-126) U/L Total Protein (6.3-8.2) g/dL Albumin (3.5-5.0) g/dL Amylase (30-110) U/L Lipase (23-300) U/L Urine Color Urine Appearance (Clear) Urine pH (5.0-8.0) Ur Specific [place] (1.001-1.035) Urine Protein (Negative) Urine Glucose (UA) (Negative) Urine Ketones (Negative) Urine Blood (Negative) Urine Nitrite (Negative) Urine Bilirubin (Negative) Urine Urobilinogen (<2.0) mg/dL Ur Leukocyte Esterase (Negative) Disposition Clinical Impression: Abdominal pain Disposition: HOME SELF-CARE Condition: Good Instructions (If sedation given, give patient instructions): Acute Abdominal Pain (ED) Additional Instructions: Return to the emergency department for any new or worsening symptoms. Recommend follow-up with your primary care provider next week for further evaluation. Is patient prescribed a controlled substance at d/c from ED?: No Referrals: Zach Washington MD [Primary Care Provider] - 1-2 days Time of Disposition: 17:39
[2024-06-09] MEDS: SODIUM CHLORIDE 0.9% 1,000 ML IV STA (15:59)
[2024-06-09] MEDS: ONDANSETRON 4 MG/2 ML VIAL IVP STA (15:59)
[2024-06-09] MEDS: MORPHINE SULFATE 2 MG/ML SYRINGE IVP ONE (16:00)
[2024-06-09 16:17] LABS: Basophils % (A) 0 %; Eosinophils # (A) 0.1 k/uL (0-0.7); Eosinophils % (A) 1 %; HCT 42.9 % (34.0-46.0); HGB 14.4 gm/dL (11.4-16.0); Lymphocytes # (A) 2.7 k/uL (1.0-4.8); Lymphocytes % (A) 23 %; MCHC 33.6 g/dL (31.0-37.0); MCV 104.2 fL (80.0-100.0); Macrocytosis Slight; Mean Platelet Volume 7.6; Monocytes # (A) 0.5 k/uL (0-1.0); Monocytes % (A) 5 %; Neutrophils # (A) 8.2 k/uL (1.3-7.7); Neutrophils % (A) 70 %; Platelet Count 223 k/uL (150-450); RBC 4.12 m/uL (3.80-5.40); RDW 12.2 % (11.5-15.5); WBC 11.7 k/uL (3.8-10.6)
[2024-06-09 16:26] LABS: ALT 19 U/L (4-34); AST 21 U/L (14-36); African American GFR (CKD) >90 (>60 ml/min/1.73 sqM); Albumin 4.5 g/dL (3.5-5.0); Alkaline Phosphatase 40 U/L (38-126); Amylase 42 U/L (30-110); Anion Gap 9 mmol/L; Blood Urea Nitrogen 10 mg/dL (7-17); Calcium 10.1 mg/dL (8.4-10.2); Carbon Dioxide 27 mmol/L (22-30); Chloride 107 mmol/L (98-107); Glucose 97 mg/dL (74-99); Lipase 27 U/L (23-300); Magnesium 1.9 mg/dL (1.6-2.3); Non-African American GFR(CKD) >90 (>60 ml/min/1.73 sqM); Potassium 4.2 mmol/L (3.5-5.1); Sodium 143 mmol/L (137-145); Total Bilirubin 0.5 mg/dL (0.2-1.3)
--- NOTE | 2024-06-09 16:34 | CT ---
EXAMINATION TYPE: CT abdomen pelvis w con DATE OF EXAM: 06/09/2024 COMPARISON: 08/11/2017 HISTORY: abdominal pain, constipation CT DLP: 499.6 mGycm Automated exposure control for dose reduction was used. TECHNIQUE: Helical acquisition of images was performed from the lung bases through the pelvis. CONTRAST: Performed without Oral Contrast and with IV Contrast, patient injected with 100 cc mL of Isovue 300. FINDINGS: The lung bases are clear. There are mild emphysematous changes. The gallbladder is normal without distention, wall thickening, pericholecystic fluid or gallstones. T here is no biliary ductal dilatation. There is no focal mass or organomegaly involving the liver, pancreas, spleen or adrenal glands. There is no solid renal mass or hydronephrosis and there is homogeneous contrast enhancement of the r enal parenchyma. The caliber the abdominal aorta is normal is no retroperitoneal adenopathy or hemorrhage. The bowel loops are normal in caliber and there is no evidence of dilatation or obstruction. No infla mmatory changes are identified in the bowel wall or mesentery. There is moderate stool within the col on. There is no free intraperitoneal air or fluid. No pelvic mass, free fluid, abscess or adenopathy. Urinary bladder is markedly distended with fluid. There is surgical absence of the uterus. The osseous structures and soft tissues are intact. IMPRESSION: 1. Mild emphysematous changes in the lung bases 2. No bowel obstruction, free air or free fluid. Moderate stool within the colon. 3. Distended urinary bladder with fluid. 4. Surgical absence of the uterus
[2024-06-09 17:12] LABS: Appearance,Urine Clear (Clear); Bilirubin,Urine Negative (Negative); Blood,Urine Negative (Negative); Color,Urine Colorless; Glucose,Urine (UA) Negative (Negative); Ketones,Urine Negative (Negative); Leukocyte Esterase,Urine Negative (Negative); Nitrite,Urine Negative (Negative); PH, Urine 6.5 (5.0-8.0); Protein,Urine Negative (Negative); Specific Gravity,Urine 1.013 (1.001-1.035); Urobilinogen,Urine <2.0 mg/dL (<2.0)
[2024-06-09 17:50] VITALS: BP 107/69; PULSE 81
== END 2024-06-09 18:00 | disposition home or self-care (01) ==
LOC: EC 13:51
CPT/HCPCS: 36415; 74177; 80053; 81003; 82150; 83605; 83690; 83735; 85025; 96361; 96374; 96375; 99284

== ENCOUNTER 2024-06-13 10:35 | Emergency (ER) | payer MEDICARE, OTHER ==
[2024-06-13 10:43] VITALS: TEMP 98.8
[2024-06-13] MEDS: SODIUM CHLORIDE 0.9% 1,000 ML IV STA (11:10)
[2024-06-13 11:15] LABS: Basophils # (A) 0.1 k/uL (0-0.2); Basophils % (A) 1 %; Eosinophils # (A) 0.3 k/uL (0-0.7); Eosinophils % (A) 2 %; HCT 44.4 % (34.0-46.0); HGB 14.4 gm/dL (11.4-16.0); Lymphocytes # (A) 2.9 k/uL (1.0-4.8); Lymphocytes % (A) 27 %; MCH 34.7 pg (25.0-35.0); MCHC 32.5 g/dL (31.0-37.0); MCV 106.6 fL (80.0-100.0); Macrocytosis Moderate; Mean Platelet Volume 7.7; Monocytes # (A) 0.6 k/uL (0-1.0); Monocytes % (A) 6 %; Neutrophils # (A) 6.6 k/uL (1.3-7.7); Neutrophils % (A) 63 %; Platelet Count 243 k/uL (150-450); RBC 4.17 m/uL (3.80-5.40); RDW 12.3 % (11.5-15.5); WBC 10.5 k/uL (3.8-10.6)
[2024-06-13] MEDS: HYDROmorphone 0.5 MG/0.5 ML SYRINGE IVP STA (11:16)
[2024-06-13 11:26] LABS: HCG,Qualitative Serum Not Detected
[2024-06-13 11:27] LABS: Appearance,Urine Clear (Clear); Bilirubin,Urine Negative (Negative); Blood,Urine Negative (Negative); Color,Urine Colorless; Glucose,Urine (UA) Negative (Negative); Ketones,Urine Negative (Negative); Leukocyte Esterase,Urine Negative (Negative); Nitrite,Urine Negative (Negative); Protein,Urine Negative (Negative); Specific Gravity,Urine 1.002 (1.001-1.035); Urobilinogen,Urine <2.0 mg/dL (<2.0)
[2024-06-13 11:28] LABS: ALT 23 U/L (4-34); AST 25 U/L (14-36); African American GFR (CKD) >90 (>60 ml/min/1.73 sqM); Albumin 4.2 g/dL (3.5-5.0); Alkaline Phosphatase 39 U/L (38-126); Amylase 41 U/L (30-110); Anion Gap 15 mmol/L; Blood Urea Nitrogen 10 mg/dL (7-17); Calcium 9.8 mg/dL (8.4-10.2); Carbon Dioxide 25 mmol/L (22-30); Chloride 100 mmol/L (98-107); Glucose 90 mg/dL (74-99); Lipase 54 U/L (23-300); Non-African American GFR(CKD) >90 (>60 ml/min/1.73 sqM); Potassium 4.6 mmol/L (3.5-5.1); Sodium 140 mmol/L (137-145); Total Bilirubin 0.5 mg/dL (0.2-1.3); Total Protein 6.5 g/dL (6.3-8.2)
[2024-06-13 11:29] LABS: INR 0.9 (<1.2); Prothrombin Time 9.9 sec (10.0-12.5)
[2024-06-13 13:03] VITALS: BP 104/67
--- NOTE | 2024-06-13 13:04 | CT ---
EXAMINATION TYPE: CT abdomen pelvis without contrast. CT angiogram abdomen and pelvis with contrast. CT DLP: 717.3 mGycm, Automated exposure control for dose reduction was used. DATE OF EXAM: 06/13/2024 12:12 PM COMPARISON: 06/09/2024 CLINICAL INDICATION: Female, 54 years old with history of abd pain out of proportion to exam; back/ab d pain TECHNIQUE: CT abdomen pelvis without contrast. CT angiogram abdomen and pelvis with contrast. Multiple thin slice sub-millimeter images were obtained after administration of contrast. 3-D recons tructed images and maximum intensity projection images were obtained. CT angio abdomen pelvis CT Contrast: Contrast used:100 mL of Isovue 370 with IV Contrast, Oral contrast used: without Oral Contrast None FINDINGS: LOWER CHEST: No evidence of focal consolidation, pneumothorax or pleural effusion. LIVER: Unremarkable GALLBLADDER AND BILE DUCTS: Unremarkable. PANCREAS: Unremarkable. SPLEEN: Unremarkable. ADRENAL GLANDS: Unremarkable. KIDNEYS AND URETERS: No evidence of hydronephrosis or renal calculus. The ureters are unremarkable. PELVIS BLADDER: Unremarkable REPRODUCTIVE: The uterus is surgically absent. ABDOMEN & PELVIS STOMACH AND BOWEL: No evidence of bowel obstruction. PERITONEUM: No evidence of pneumoperitoneum or free fluid. VASCULATURE: No evidence of aortic aneurysm. No evidence for dissection occlusion or aneurysm. Mild a therosclerotic of the arterial vascular. MUSCULOSKELETAL: No acute osseous abnormalities, postsurgical changes L5-S1 with anterior fixation dyson rdware. Hardware appears intact. No evidence for significant spinal canal or neural foraminal stenosi s. L5 and L1 limbus vertebrae noted. LYMPH NODES: No gross evidence for lymphadenopathy. SOFT TISSUE/ABDOMINAL WALL: Unremarkable IMPRESSION 1. No evidence for acute abdominal process. Bowel shaikh and vasculature appear within normal limits 2. No left renal calculi 3. No evidence for dissection occlusion or aneurysm. Mild atherosclerosis of the arterial vasculatur e.
--- NOTE | 2024-06-13 13:26 | ED ---
General Adult HPI - General Chief complaint: Abdominal Pain Stated complaint: Abd Pain Time Seen by Provider: 06/13/24 10:51 Source: patient, EMS, RN notes reviewed, old records reviewed Mode of arrival: EMS Limitations: no limitations - History of Present Illness Initial comments: Patient is a 53-year-old female presents Emergency Department complaining of abdominal cramping and pain. States she is getting abdominal spasms that are ongoing for the last week. Was seen here few days ago and workup was unremarkable and she was discharged home. States it is still occurring. Was given Norflex and thought this might be causing it however she has been off this medication for 2 days and is still having the symptoms. Denies any constipati on, diarrhea, denies significant nausea or vomiting. Currently has minimal symptoms. He is tearful. Is being worked up for autoimmune disease outpatient. Denies any other acute complaints at this time. Presents for further evaluation. Denies chest pain or shortness of breath. - Related Data Home Medications Medication Instructions Recorded Confirmed Ondansetron [Zofran] 4 mg PO DAILY PRN 08/08/21 06/13/24 lamoTRIgine [LaMICtal] 100 mg PO DAILY 08/08/21 06/13/24 Oxybutynin Xl [Ditropan XL] 5 mg PO DAILY 08/07/22 06/13/24 Acetaminophen Tab [Tylenol] 650 mg PO Q6H PRN 06/13/24 06/13/24 Atorvastatin [Lipitor] 20 mg PO HS 06/13/24 06/13/24 Ibuprofen [Motrin Ib] 400 mg PO Q6H PRN 06/13/24 06/13/24 Mirtazapine [Remeron] 15 mg PO HS 06/13/24 06/13/24 Pantoprazole [Protonix] 40 mg PO DAILY 06/13/24 06/13/24 Pregabalin [Lyrica] 50 mg PO DAILY PRN 06/13/24 06/13/24 Topiramate [Topamax] 75 mg PO HS 06/13/24 06/13/24 clonazePAM 0.25 mg PO DAILY 06/13/24 06/13/24 Previous Rx's Medication Instructions Recorded Cyclobenzaprine [Flexeril] 10 mg PO HS PRN #7 tab 08/07/22 Dicyclomine [Bentyl] 10 mg PO TID PRN 7 Days #21 cap 06/13/24 Allergies Allergy/AdvReac Type Severity Reaction Status Date / Time nitrofurantoin Allergy Severe Anaphylaxis Verified 06/13/24 12:52 [From Macrobid] Penicillins Allergy Unknown Verified 06/13/24 12:52 Childhood escitalopram [From Lexapro] AdvReac manic Verified 06/13/24 12:52 orphenadrine [From Norflex] AdvReac abdominal Verified 06/13/24 12:52 pain/burning quetiapine [From Seroquel] AdvReac dizzy/shaky, Verified 06/13/24 12:52 tremors Review of Systems ROS Statement: Those systems with pertinent positive or pertinent negative responses have been documented in the HPI. Review of Systems: CONST: Denies fever EYES: Denies blurry vision ENT: Denies nasal congestion C/V: Denies Chest pain RESP: Denies shortness of breath GI: Endorses abdominal spasms : Denies dysuria SKIN: Denies rash. MSK: Denies joint pain. NEURO: Denies headache ROS Other: All systems not noted in ROS Statement are negative. Past Medical History Past Medical History: Neurologic Disorder, Seizure Disorder Additional Past Medical History / Comment(s): 2009 -recurring boil upper rt thigh- pt stated pcp at the [facility] told her it looked like it may be mrsa but pt never got confirmation either way-had area "cut away"and it has'nt retutned..Hx vertigo and gait disorder in 2002,lumbar disc disease hx lower back, neck and shoulder pain, HERNIATED DISCS, HEADACHES-PAIN SHOOTS UP NECK AND INTO SHOULDER BLADES. No seizures in 5 yrs, hx of and KIDNEY STONES. History of Any Multi-Drug Resistant Organisms: None Reported Date of last positivie culture/infection: 2009 MDRO Source:: boil on back of left leg Past Surgical History: Back Surgery, Section, Hysterectomy, Tubal Ligation Additional Past Surgical History / Comment(s): Hx ectopic rupture left ovary and fallopian tube removed, lumbar spinal fusion, herniated bowel repair during spine surgery, march 2016-cervical fusion, lithotriipsy/basketing and stent january 2017, cystopscopy/lt ureterocopopy w/stent insertion-since removed on 08-27-17 Past Anesthesia/Blood Transfusion Reactions: Motion Sickness, Postoperative Nausea & Vomiting (PONV) Additional Past Anesthesia/Blood Transfusion Reaction / Comment(s): Quite extensive N&V with last proceudre that lasted for a few days. Past Psychological History: Anxiety, Depression Smoking Status: Current every day smoker Past Alcohol Use History: None Reported Past Drug Use History: None Reported - Past Family History Mother Family Medical History: Hyperlipidemia Father Family Medical History: Cancer Additional Family Medical History / Comment(s): Father from lung ca 1988 General Exam - General Exam Comments Initial Comments: General: Appears anxious in mild distress. HEAD: Normal with no signs of head trauma. EYES: PERRLA, EOMI, conjunctiva normal, no discharge. ENT: Hearing grossly intact, normal oropharynx. RESPIRATORY: Clear breath sounds bilaterally. No wheezes, rales, or rhonchi. C/V: Regular rate and rhythm. S1 and S2 auscultated, no edema, peripheral pulses 2+ and intact throughout ABD: Abd is soft, nontender, nondistended. No focal tenderness to palpation. No guarding or rebound tenderness. EXT: Normal range of motion, no obvious deformity SKIN: No rashes or lesions observed on exposed skin. NEURO: Alert and oriented x 4. Limitations: no limitations Course Vital Signs 06/13/24 06/13/24 06/13/24 10:38 13:01 13:48 Temperature 98.8 F Pulse Rate 124 H 122 H 100 Respiratory 20 18 16 Rate Blood Pressure 125/73 104/67 104/67 O2 Sat by Pulse 97 97 97 Oximetry Medical Decision Making - Medical Decision Making Was pt. sent in by a medical professional or institution (, PA, DIRECTOR OF PHYSIOTHERAPY SERVICES, urgent care, hospital, or longterm...) When possible be specific @ -No Did you speak to anyone other than the patient for history (EMS, parent, family, police, friend...)? What history was obtained from this source @ -No Did you review nursing and triage notes (agree or disagree)? Why? @ -I reviewed and agree with nursing and triage notes Were old charts reviewed (outside hosp., previous admission, EMS record, old EKG, old radiological studies, urgent care reports/EKG's, longterm records)? Report findings @ -Old charts including CT imaging from June 09, 2024 reviewed which revealed no obvious findings on workup for her symptoms. Differential Diagnosis (chest pain, altered mental status, abdominal pain women, abdominal pain men, vaginal bleeding, weakness, fever, dyspnea, syncope, headache, dizziness, GI bleed, back pain, seizure, CVA, palpatations, mental health, musculoskeletal)? @ -Differential Abdominal Pain Women: Appendicitis, Cholecystitis, diverticulosis, ischemic bowel, pancreatitis, hepatitis, UTI, gastroenteritis, AAA, incarcerated hernia, bowel obstruction, constipation, inflammatory bowel, hepatitis, peptic ulcer disease, splenic infarction, perforated viscus, vulvitis, ovarian torsion, PID, kidney stone, placenta abruption, this is not meant to be an all-inclusive list EKG interpreted by me (3pts min.). @ -As above X-rays interpreted by me (1pt min.). @ -None done CT interpreted by me (1pt min.). @ -CTA of the abdomen pelvis negative for any obvious acute process. U/S interpreted by me (1pt. min.). @ -None done What testing was considered but not performed or refused? (CT, X-rays, U/S, labs)? Why? @ -None What meds were considered but not given or refused? Why? @ -None Did you discuss the management of the patient with other professionals (professionals i.e. , PA, DIRECTOR OF PHYSIOTHERAPY SERVICES, lab, RT, psych nurse, social and political studies professor, communicable disease specialist, teacher, county records management officer, case loader operator)? Give summary @ -No Was smoking cessation discussed for >3mins.? @ -No Was critical care preformed (if so, how long)? @ -No Were there social determinants of health that impacted care today? How? (Homelessness, low income, unemployed, alcoholism, drug addiction, transportation, low edu. Level, literacy, decrease access to med. care, assisted, rehab)? @ -No Was there de-escalation of care discussed even if they declined (Discuss DNR or withdrawal of care, Hospice)? DNR status @ -No What co-morbidities impacted this encounter? (DM, HTN, Smoking, COPD, CAD, Cancer, CVA, ARF, Chemo, Hep., AIDS, mental health diagnosis, sleep apnea, morbid obesity)? @ -None Was patient admitted / discharged? Hospital course, mention meds given and route, prescriptions, significant lab abnormalities, going to OR and other pertinent info. @ -Patient presents with somewhat chronic abdominal pain but worse over the last week. Already seen this week for similar complaints but is not improving. Exam shows pain out of proportion to physical exam and therefore we will obtain CT angiogram of the abdomen pelvis in addition to abdominal labs. Patient was in agreement this plan. Vital signs within acceptable limits. Given analgesia medications, IV fluids. Laboratory studies are all within acceptable limits. Screening EKG showed no signs of acute ischemia. CT imaging negative for any obvious acute intra- abdominal process. On reevaluation, patient is improved. I did discuss results. I did offer observation admission for intractable abdominal pain but patient elects to go home at this time. I believe it is reasonable. She does follow-up with Dr. Herron of GI as well as follow-up for rheumatology for possible autoimmune disease. I believe it is safer to be discharged home and she was in agreement the plan. I will provide the patient with a prescription for Bentyl. I instructed the patient to follow up with their PCP in the next 1-3 days.. I explained that the patient should return to the emergency department if they experience any worseni ng symptoms. Strict return precautions were discussed with the patient. The patient expressed understanding of these instructions. I answered all questions that the patient had. The patient was discharged home in good condition with their prescriptions and follow up information. Undiagnosed new problem with uncertain prognosis? @ -No Drug Therapy requiring intensive monitoring for toxicity (Heparin, Nitro, Insulin, Cardizem)? @ -No Were any procedures done? @ -No Diagnosis/symptom? @ -Abdominal pain of unknown etiology Acute, or Chronic, or Acute on Chronic? @ -Acute Uncomplicated (without systemic symptoms) or Complicated (systemic symptoms)? @ -Uncomplicated Side effects of treatment? @ -No Exacerbation, Progression, or Severe Exacerbation? @ -No Poses a threat to life or bodily function? How? (Chest pain, [place], SC, pneumonia, PE, COPD, DKA, ARF, appy, cholecystitis, CVA, Diverticulitis, Homicidal, Suicidal, threat to staff... and all critical care pts) @ -Unlikely at this time - Lab Data Result diagrams: 06/13/24 11:05 06/13/24 11:05 Lab Results 06/13/24 06/13/24 06/13/24 Range/Units 11:05 11:05 11:05 WBC 10.5 (3.8-10.6) k/uL RBC 4.17 (3.80-5.40) m/uL Hgb 14.4 (11.4-16.0) gm/dL Hct 44.4 (34.0-46.0) % MCV 106.6 H (80.0-100.0) fL MCH 34.7 (25.0-35.0) pg MCHC 32.5 (31.0-37.0) g/dL RDW 12.3 (11.5-15.5) % Plt Count 243 (150-450) k/uL MPV 7.7 Neutrophils % 63 % Lymphocytes % 27 % Monocytes % 6 % Eosinophils % 2 % Basophils % 1 % Neutrophils # 6.6 (1.3-7.7) k/uL Lymphocytes # 2.9 (1.0-4.8) k/uL Monocytes # 0.6 (0-1.0) k/uL Eosinophils # 0.3 (0-0.7) k/uL Basophils # 0.1 (0-0.2) k/uL Macrocytosis Moderate PT 9.9 L (10.0-12.5) sec INR 0.9 (<1.2) APTT 20.0 L (22.0-30.0) sec Sodium (137-145) mmol/L Potassium (3.5-5.1) mmol/L Chloride (98-107) mmol/L Carbon Dioxide (22-30) mmol/L Anion Gap mmol/L BUN (7-17) mg/dL Creatinine (0.52-1.04) mg/dL Est GFR (CKD-EPI)AfAm (>60 ml/min/1.73 sqM) Est GFR (CKD-EPI)NonAf (>60 ml/min/1.73 sqM) Glucose (74-99) mg/dL Plasma Lactic Acid Dane (0.7-2.0) mmol/L Calcium (8.4-10.2) mg/dL Total Bilirubin (0.2-1.3) mg/dL AST (14-36) U/L ALT (4-34) U/L Alkaline Phosphatase (38-126) U/L Total Protein (6.3-8.2) g/dL Albumin (3.5-5.0) g/dL Amylase (30-110) U/L Lipase (23-300) U/L HCG, Qual Urine Color Colorless Urine Appearance Clear (Clear) Urine pH 7.0 (5.0-8.0) Ur Specific [place] 1.002 (1.001-1.035) Urine Protein Negative (Negative) Urine Glucose (UA) Negative (Negative) Urine Ketones Negative (Negative) Urine Blood Negative (Negative) Urine Nitrite Negative (Negative) Urine Bilirubin Negative (Negative) Urine Urobilinogen <2.0 (<2.0) mg/dL Ur Leukocyte Esterase Negative (Negative) 06/13/24 06/13/24 Range/Units 11:05 11:05 WBC (3.8-10.6) k/uL RBC (3.80-5.40) m/uL Hgb (11.4-16.0) gm/dL Hct (34.0-46.0) % MCV (80.0-100.0) fL MCH (25.0-35.0) pg MCHC (31.0-37.0) g/dL RDW (11.5-15.5) % Plt Count (150-450) k/uL MPV Neutrophils % % Lymphocytes % % Monocytes % % Eosinophils % % Basophils % % Neutrophils # (1.3-7.7) k/uL Lymphocytes # (1.0-4.8) k/uL Monocytes # (0-1.0) k/uL Eosinophils # (0-0.7) k/uL Basophils # (0-0.2) k/uL Macrocytosis PT (10.0-12.5) sec INR (<1.2) APTT (22.0-30.0) sec Sodium 140 (137-145) mmol/L Potassium 4.6 (3.5-5.1) mmol/L Chloride 100 (98-107) mmol/L Carbon Dioxide 25 (22-30) mmol/L Anion Gap 15 mmol/L BUN 10 (7-17) mg/dL Creatinine 0.71 (0.52-1.04) mg/dL Est GFR (CKD-EPI)AfAm >90 (>60 ml/min/1.73 sqM) Est GFR (CKD-EPI)NonAf >90 (>60 ml/min/1.73 sqM) Glucose 90 (74-99) mg/dL Plasma Lactic Acid Dane 1.9 (0.7-2.0) mmol/L Calcium 9.8 (8.4-10.2) mg/dL Total Bilirubin 0.5 (0.2-1.3) mg/dL AST 25 (14-36) U/L ALT 23 (4-34) U/L Alkaline Phosphatase 39 (38-126) U/L Total Protein 6.5 (6.3-8.2) g/dL Albumin 4.2 (3.5-5.0) g/dL Amylase 41 (30-110) U/L Lipase 54 (23-300) U/L HCG, Qual Not Detected Urine Color Urine Appearance (Clear) Urine pH (5.0-8.0) Ur Specific [place] (1.001-1.035) Urine Protein (Negative) Urine Glucose (UA) (Negative) Urine Ketones (Negative) Urine Blood (Negative) Urine Nitrite (Negative) Urine Bilirubin (Negative) Urine Urobilinogen (<2.0) mg/dL Ur Leukocyte Esterase (Negative) - EKG Data -: EKG Interpreted by Me EKG Comments: 12-lead Electrocardiogram Interpretation Note EKG was reviewed and interpreted by myself. 12-lead ECG performed at [facility] is interpreted by me as revealing normal sinus rhythm at a rate of 92 beats per minute. [place] is normal. CT interval is 140 ms, QRS duration is 77 ms, QTc is 371 ms.. There were no ST or T wave abnormalities to suggest myocardial ischemia or injury. R wave progression across the precordium was satisfactory. By my interpretation this EKG is non-diagnostic for acute ischemia. Disposition Clinical Impression: Abdominal pain of unknown etiology Disposition: HOME SELF-CARE Condition: Good Instructions (If sedation given, give patient instructions): Abdominal Pain (ED) Prescriptions: Dicyclomine [Bentyl] 10 mg PO TID PRN 7 Days #21 cap PRN Reason: Pain Is patient prescribed a controlled substance at d/c from ED?: No Referrals: Zach Washington MD [Primary Care Provider] - 1-2 days Time of Disposition: 13:25
[2024-06-13] MEDS: DICYCLOMINE 10 MG CAP PO STA (13:47)
[2024-06-13] MEDS: ACET/COD 300 MG/30 MG STARTER PACK 6 TAB BTL PO STA (13:47)
[2024-06-13 13:49] VITALS: PULSE 100; RESP 16
== END 2024-06-13 13:50 | disposition home or self-care (01) ==
LOC: EC 10:35
DX: E10.9 Type 1 diabetes mellitus without complications
CPT/HCPCS: 36415; 74174; 80053; 81003; 82150; 83605; 83690; 84703; 85025; 85610; 85730; 93005; 96361; 96374; 99285

== ENCOUNTER → 2024-10-09 | Outpatient (CLI) | payer MEDICARE, OTHER ==
--- NOTE | 2024-10-09 16:12 | MR ---
EXAMINATION TYPE: MR knee RT wo con DATE OF EXAM: 10/09/2024 12:21 PM COMPARISON: Radiograph 09/12/2024 CLINICAL INDICATION: Female, 54 years old with history of M25.561 R KNEE PAIN, Right knee pain and sw elling x1 year TECHNIQUE: Multiplanar, multisequence imaging of the right knee is performed without IV contrast. FINDINGS: The ACL, PCL, and MCL are intact. There is heterogeneous signal at the femoral attachment of the LCL proper. LCL complex are otherwise intact. There is a tiny longitudinal tear within the posterior horn of the lateral meniscus extending from th e insertion of the meniscal femoral ligament, refer to sagittal images 18 through 20. Moderate irregu lar cartilage thinning mid weightbearing aspect of the lateral compartment. Prominent degenerative signal posterior horn and body of the medial meniscus without discrete tear se en at this time. Mild thinning of medial compartment articular cartilage volume. Mild superficial cartilage irregularity throughout the patellofemoral compartment with overall preser king volume. Extensor mechanism is intact. Suspect areas of thickening artifact along the patellar tendon. Promine nt edema within the suprapatellar fat pad. Trace, physiologic joint effusion. No Stapleton's cyst. Normal popliteal artery anatomy and muscle bulk. No suspicious bone marrow replacement. IMPRESSION: 1. Grade 1 versus chronic sprain at the femoral attachment of the LCL proper. 2. Tiny longitudinal tear within the posterior horn of the lateral meniscus extending from the insert ion of the meniscal femoral ligament. 3. Degenerative signal posterior horn and body of the medial meniscus without discrete tear at this t ronnie. 4. Mild overall lateral compartmental OA. 5. Prominent edema within the suprapatellar fat pad. These findings are nonspecific but may be seen w ith fat pad impingement syndrome. Clinically correlate. [facility], Workstation: [email or web address], 10/09/2024 4:09 PM
== END | disposition home or self-care (01) ==
LOC: RADMRIMAIN 11:19
PROVIDERS: ATTEND Orthopaedic Surgery
DX: S83.281A Other tear of lateral meniscus, current injury, right knee, initial encounter (principal); M17.11 Unilateral primary osteoarthritis, right knee; R60.0 Localized edema

== ENCOUNTER → 2024-11-04 | Outpatient (CLI) | payer MEDICARE, OTHER ==
[2024-11-04 19:02] LABS: Basophils # (A) 0.05 X 10*3/uL (0.00-0.10); Basophils % (A) 0.8 %; Eosinophils # (A) 0.18 X 10*3/uL (0.04-0.35); Eosinophils % (A) 2.7 %; HCT 41.1 % (37.2-46.3); HGB 13.4 g/dL (12.0-15.0); Lymphocytes # (A) 3.15 X 10*3/uL (0.90-5.00); Lymphocytes % (A) 47.4 %; MCH 34.1 pg (27.0-32.0); MCHC 32.6 g/dL (32.0-37.0); MCV 104.6 FL (80.0-97.0); Mean Platelet Volume 10.8 FL (9.5-12.2); Monocytes # (A) 0.54 X 10*3/uL (0.20-1.00); Monocytes % (A) 8.1 %; NRBC Per 100 WBC 0 X 10*3/uL (0.00-0.01); Neutrophils # (A) 2.71 X 10*3/uL (1.80-7.70); Neutrophils % (A) 40.8 %; Platelet Count 168 X 10*3/uL (140-440); RBC 3.93 X 10*6/uL (4.10-5.20); WBC 6.64 X 10*3/uL (4.50-10.00)
[2024-11-04 19:38] LABS: Anion Gap 10.4 mmol/L (4.00-12.00); Carbon Dioxide 26.6 mmol/L (21.6-31.8)
== END | disposition home or self-care (01) ==
LOC: LABPAT 09:37
PROVIDERS: ATTEND Orthopaedic Surgery
DX: Z01.818 Encounter for other preprocedural examination (principal); M23.91 Unspecified internal derangement of right knee
CPT/HCPCS: 80051; 85025; 93005

== ENCOUNTER 2025-02-12 07:23 | Emergency (ER) | payer MEDICARE, OTHER ==
--- NOTE | 2025-02-12 08:19 | ED ---
General Adult HPI - General Source: patient, family, EMS, RN notes reviewed Mode of arrival: EMS Limitations: no limitations <Tash Islas - Last Filed: 02/12/25 16:09> <Fadi Means - Last Filed: 02/13/25 10:05> - General Chief complaint: Allergic Reaction Stated complaint: Allergic Reaction - History of Present Illness Initial comments: Patient is a 54-year-old female with history of autoimmune disease (undergoing workup currently) and CVA/TIA presenting today for adverse reaction to buprenorphine patch that she put on Sunday. She states that she has been having shakes/chills, joint pain, muscle stiffness, weakness, dizziness, feeling like her spine is on fire with radiation throughout her body, jaw stiffness, and then this morning she had some difficulty breathing and nausea for which she took Zofran. She was prescribed the buprenorphine patch on and first but the patch on Sunday evening. When she started experiencing the symptoms she attributed them to a flareup of her autoimmune disease but then read the box of patches and realized that these are potential side effects/adverse reactions. She took the patch off this morning at around 0430. She reports a history of fibromyalgia and is currently being worked up for MS versus other neurological processes. She has not been able to take her Klonopin or Remeron due to the potential interaction with the buprenorphine patches. She is also reporting abdominal cramping and tenderness, chills/shaking unrelated to her anxiety, flushing, chest muscle tightness and burning, difficulty in breathing this morning that is slightly improved now, loss of bladder function due to not being able to take her oxybutynin over the last few days. (Tash Islas) - Related Data Home Medications Medication Instructions Recorded Confirmed Ondansetron [Zofran] 4 mg PO DAILY PRN 08/08/21 06/13/24 lamoTRIgine [LaMICtal] 100 mg PO DAILY 08/08/21 06/13/24 Oxybutynin Xl [Ditropan XL] 5 mg PO DAILY 08/07/22 06/13/24 Acetaminophen Tab [Tylenol] 650 mg PO Q6H PRN 06/13/24 06/13/24 Atorvastatin [Lipitor] 20 mg PO HS 06/13/24 06/13/24 Ibuprofen [Motrin Ib] 400 mg PO Q6H PRN 06/13/24 06/13/24 Mirtazapine [Remeron] 15 mg PO HS 06/13/24 06/13/24 Pantoprazole [Protonix] 40 mg PO DAILY 06/13/24 06/13/24 Pregabalin [Lyrica] 50 mg PO DAILY PRN 06/13/24 06/13/24 Topiramate [Topamax] 75 mg PO HS 06/13/24 06/13/24 clonazePAM 0.25 mg PO DAILY 06/13/24 06/13/24 Previous Rx's Medication Instructions Recorded Cyclobenzaprine [Flexeril] 10 mg PO HS PRN #7 tab 08/07/22 Dicyclomine [Bentyl] 10 mg PO TID PRN 7 Days #21 cap 06/13/24 predniSONE 50 mg PO DAILY 5 Days #5 tab 02/12/25 predniSONE [Deltasone] 20 mg PO DAILY 4 Days #4 tab 02/12/25 Allergies Allergy/AdvReac Type Severity Reaction Status Date / Time nitrofurantoin Allergy Severe Anaphylaxis Verified 02/13/25 08:58 [From Macrobid] Penicillins Allergy Unknown Verified 02/13/25 08:58 Childhood escitalopram [From Lexapro] AdvReac manic Verified 02/13/25 08:58 orphenadrine [From Norflex] AdvReac abdominal Verified 02/13/25 08:58 pain/burning quetiapine [From Seroquel] AdvReac dizzy/shaky, Verified 02/13/25 08:58 tremors Review of Systems ROS Other: All systems not noted in ROS Statement are negative. <Tash Islas - Last Filed: 02/12/25 16:09> ROS Other: All systems not noted in ROS Statement are negative. <Fadi Means - Last Filed: 02/13/25 10:05> ROS Statement: Those systems with pertinent positive or pertinent negative responses have been documented in the HPI. Past Medical History Past Medical History: Neurologic Disorder, Seizure Disorder Additional Past Medical History / Comment(s): 2009 -recurring boil upper rt thigh- pt stated pcp at the [facility] told her it looked like it may be mrsa but pt never got confirmation either way-had area "cut away"and it has'nt retutned..Hx vertigo and gait disorder in 2002,lumbar disc disease hx lower back, neck and shoulder pain, HERNIATED DISCS, HEADACHES-PAIN SHOOTS UP NECK AND INTO SHOULDER BLADES. No seizures in 5 yrs, hx of and KIDNEY STONES. History of Any Multi-Drug Resistant Organisms: None Reported Date of last positivie culture/infection: 2009 MDRO Source:: boil on back of left leg Past Surgical History: Back Surgery, Section, Hysterectomy, Tubal Ligation Additional Past Surgical History / Comment(s): Hx ectopic rupture left ovary and fallopian tube removed, lumbar spinal fusion, herniated bowel repair during [facility], march 2016-cervical fusion, lithotriipsy/basketing and stent january 2017, cystopscopy/lt ureterocopopy w/stent insertion-since removed on 08-27-17 Past Anesthesia/Blood Transfusion Reactions: Motion Sickness, Postoperative Nausea & Vomiting (PONV) Additional Past Anesthesia/Blood Transfusion Reaction / Comment(s): Quite extensive N&V with last proceudre that lasted for a few days. Past Psychological History: Anxiety, Depression Smoking Status: Current every day smoker Past Alcohol Use History: None Reported Past Drug Use History: Marijuana - Past Family History Mother Family Medical History: Hyperlipidemia Father Family Medical History: Cancer Additional Family Medical History / Comment(s): Father from lung ca 1988 <Paulmaria luisaTash - Last Filed: 02/12/25 16:09> General Exam Limitations: no limitations General appearance: alert Head exam: Present: atraumatic Eye exam: Present: normal appearance, PERRL, EOMI ENT exam: Present: mucous membranes moist, normal external ear exam Neck exam: Present: tenderness Respiratory exam: Present: normal lung sounds bilaterally, chest wall tenderne ss. Absent: respiratory distress, wheezes, rales, rhonchi, stridor, accessory muscle use Cardiovascular Exam: Present: regular rate, normal rhythm, normal heart sounds. Absent: systolic murmur, diastolic murmur GI/Abdominal exam: Present: soft, tenderness (Diffuse), normal bowel sounds. Absent: distended, guarding, rebound, rigid Extremities exam: Present: normal inspection, other (Muscle strength 4/5 on left side, she relates it to flareups and history of CVA/TIA) Neurological exam: Present: alert, oriented X3, CN II-XII intact Psychiatric exam: Present: normal affect, normal mood Skin exam: Present: warm, dry, intact, normal color. Absent: rash, urticaria <Tash Islas - Last Filed: 02/12/25 16:09> Course Vital Signs 02/12/25 02/12/25 07:26 08:58 Temperature 99.0 F 98.9 F Pulse Rate 105 H 101 H Respiratory 20 18 Rate Blood Pressure 118/72 119/73 O2 Sat by Pulse 98 98 Oximetry Medical Decision Making <Tash Islas - Last Filed: 02/12/25 16:09> <Fadi Means - Last Filed: 02/13/25 10:05> - Medical Decision Making Was pt. sent in by a medical professional or institution (, PA, LVN, urgent care, hospital, or fpc...) When possible be specific @ -No Did you speak to anyone other than the patient for history (EMS, parent, family, police, friend...)? What history was obtained from this source @ -No Did you review nursing and triage notes (agree or disagree)? Why? @ -I reviewed and agree with nursing and triage notes Were old charts reviewed (outside hosp., previous admission, EMS record, old EKG, old radiological studies, urgent care reports/EKG's, fpc records)? Report findings @ -No old charts were reviewed Differential Diagnosis? @ -Differential Back Pain: Strain, zoster, cauda equina syndrome, epidural abscess, vertebral osteomyelitis, discitis, fracture, subluxation, disc herniation, DJD, spinal stenosis, dissection, AAA, pancreatitis, peptic ulcer disease, pyelonephritis, kidney stone, this is not meant to be an all-inclusive list. EKG interpreted by me (3pts min.). @ -As above X-rays interpreted by me (1pt min.). @ -None done CT interpreted by me (1pt min.). @ -None done U/S interpreted by me (1pt. min.). @ -None done What testing was considered but not performed or refused? (CT, X-rays, U/S, la bs)? Why? @ -None What meds were considered but not given or refused? Why? @ -None Did you discuss the management of the patient with other professionals (professionals i.e. , PA, LVN, lab, RT, psych nurse, social worker clinical, stock worker and deliverer, teacher, gifts officer, manager case management)? Give summary @ -No Was smoking cessation discussed for >3mins.? @ -No Was critical care preformed (if so, how long)? @ -No Were there social determinants of health that impacted care today? How? (Homelessness, low income, unemployed, alcoholism, drug addiction, transportation, low edu. Level, literacy, decrease access to med. care, residential, rehab)? @ -No Was there de-escalation of care discussed even if they declined (Discuss DNR or withdrawal of care, Hospice)? DNR status @ -No What co-morbidities impacted this encounter? (DM, HTN, Smoking, COPD, CAD, Cancer, CVA, ARF, Chemo, Hep., AIDS, mental health diagnosis, sleep apnea, morbid obesity)? @ -None Was patient admitted / discharged? Hospital course, mention meds given and route, prescriptions, significant lab abnormalities, going to OR and other pertinent info. @ -Patient is a 54-year-old female with history of autoimmune disease (undergoing workup currently) and CVA/TIA presenting today for adverse reaction to buprenorphine patch that she put on Sunday. She remove the patch at 0430 this morning. Decision to give prednisone 40 mg p.o. After reevaluation pat ient reported that she was feeling much better. She was given a prescription for prednisone 20 mg p.o. for the next 4 days. She was discharged with recommendation to follow-up with PCP in 1 to 2 days. Patient agreeable to this plan. Undiagnosed new problem with uncertain prognosis? @ -No Drug Therapy requiring intensive monitoring for toxicity (Heparin, Nitro, Insulin, Cardizem)? @ -No Were any procedures done? @ -No Diagnosis/symptom? @ -Medication reaction Acute, or Chronic, or Acute on Chronic? @ -Acute Uncomplicated (without systemic symptoms) or Complicated (systemic symptoms)? @ -Uncomplicated Side effects of treatment? @ -No Exacerbation, Progression, or Severe Exacerbation? @ -No Poses a threat to life or bodily function? How? (Chest pain, USA, [place], pneumonia, PE, COPD, DKA, ARF, appy, cholecystitis, CVA, Diverticulitis, Homicidal, Suicidal, threat to staff... and all critical care pts) @ -No (Tash Islas) I personally saw the patient and performed the critical portion of the service. I discussed the patient care with the resident. I directed management, care planning and final disposition of the patient. This includes, but not limited to, review of all lab work, radiological studies, EKG's, consultations, vital signs, and nursing notes. EKG interpreted by me (3pts min.) @None none X-Rays interpreted by me (1 pt min.) @None CT interpreted by me ( 1pt min.) @None U/S interpreted by me (1 pt min.) @None (Fadi Means) Disposition Is patient prescribed a controlled substance at d/c from ED?: No Time of Disposition: 08:46 <Tash Islas - Last Filed: 02/12/25 16:09> <Fadi Means - Last Filed: 02/13/25 10:05> Clinical Impression: Medication reaction Disposition: HOME SELF-CARE Condition: Stable Instructions (If sedation given, give patient instructions): Opioid Safety (ED) Additional Instructions: Every disease is a spectrum and a small chance still exists that a serious co ndition could develop, for this reason, please monitor yourself closely for new, changing or worsening symptoms, symptoms that persist beyond 48 hours, fever, inability to tolerate/keep down fluids or your medications, inability to follow up with outpatient providers as instructed and should you experience these symptoms or should you have any further concerns for your wellbeing please return to the ED or call 911 immediately. Your pain can be treated with ibuprofen and acetaminophen. You can take up to 400-600 mg of ibuprofen (Advil, Motrin) 3 times daily (every 8 hours) but can also use lower doses if this relieves your pain. Some people prefer naproxen (Aleve, Naprosyn) which can be taken in doses of 500 mg up to twice a day. Do not take both of these medicines together, and do not combine either with ketorolac (Toradol), meloxicam (Mobic), or indomethacin (Tivorbex). Some people can develop stomach discomfort with higher doses of either ibuprofen or naproxen, if this develops decrease your dose or stop taking it. If you need to take this dose daily for more than a week, please schedule an appointment for re-evaluation with your PCP. Please take these medications with food. You can take up to 1000 mg of acetaminophen (Tylenol) every 6 hours. Be careful as this is included in some medicines like Nyquil, [place], Percocet, Vicodin, STANBACK, Goody's Powders, and Excedrin. You can also use lidocaine patches for topical pain. You can purchase 4% patches over the counter at most drug stores. These can be helpful for pain from your muscles or bones. PLEASE call your primary care physician as soon as possible to arrange / discuss plan for followup appointment. Appointment in the next 1-3 days is strongly encouraged if possible. PLEASE let us know here before you leave if there is anything further we can do to be of any assistance. Take care and feel Better! Prescriptions: predniSONE [Deltasone] 20 mg PO DAILY 4 Days #4 tab Referrals: Zach Washington MD [Primary Care Provider] - 1-2 days
[2025-02-12] MEDS: predniSONE 20 MG TAB PO STA (08:51)
[2025-02-12 09:08] VITALS: BP 119/73; PULSE 101; RESP 18; TEMP 98.9
== END 2025-02-12 09:17 | disposition home or self-care (01) ==
LOC: EC 07:23
DX: R10.84 Generalized abdominal pain (principal); T40.495A Adverse effect of other synthetic narcotics, initial encounter; F17.200 Nicotine dependence, unspecified, uncomplicated; Z88.0 Allergy status to penicillin; Z88.1 Allergy status to other antibiotic agents; Z88.8 Allergy status to other drugs, medicaments and biological substances
CPT/HCPCS: 99284; J7512

== ENCOUNTER 2025-02-12 19:22 | Emergency (ER) | payer MEDICARE, OTHER ==
[2025-02-12 19:26] VITALS: RESP 18; TEMP 98.7
[2025-02-12 20:54] LABS: Basophils # (A) 0.02 10*3/uL (0.00-0.10); Basophils % (A) 0.3 %; HGB 14.6 g/dL (12.0-15.0); Lymphocytes # (A) 0.98 10*3/uL (0.90-5.00); Lymphocytes % (A) 13.3 %; MCH 35.8 pg (27.0-32.0); MCHC 35.6 g/dL (32.0-37.0); MCV 100.5 fL (80.0-97.0); Mean Platelet Volume 10.2 fL (9.5-12.2); Monocytes # (A) 0.13 10*3/uL (0.20-1.00); Monocytes % (A) 1.8 %; Neutrophils # (A) 6.24 10*3/uL (1.80-7.70); Neutrophils % (A) 84.3 %; Platelet Count 180 10*3/uL (140-440); RBC 4.08 10*6/uL (4.10-5.20); RDW 11.7 % (11.5-14.5); WBC 7.39 10*3/uL (4.50-10.00)
[2025-02-12 21:06] LABS: ALT 25 U/L (4-34); AST 24 U/L (14-36); African American GFR (CKD) >90 (>60 ml/min/1.73 sqM); Albumin 4.9 g/dL (3.5-5.0); Alkaline Phosphatase 54 U/L (38-126); Anion Gap 12 mmol/L; Blood Urea Nitrogen 9 mg/dL (7-17); Calcium 10.4 mg/dL (8.4-10.2); Carbon Dioxide 22 mmol/L (22-30); Chloride 106 mmol/L (98-107); Glucose 119 mg/dL (74-99); Magnesium 1.9 mg/dL (1.6-2.3); Non-African American GFR(CKD) >90 (>60 ml/min/1.73 sqM); Sodium 140 mmol/L (137-145); Total Bilirubin 0.6 mg/dL (0.2-1.3); Total Protein 7.4 g/dL (6.3-8.2)
[2025-02-12] MEDS: LORazepam 1 MG/0.5 ML VIAL IV STA (21:11)
[2025-02-12] MEDS: DEXAMETHASONE SOD PHOSPHATE 10 MG/ML 1 ML VIAL IVP STA (21:11)
[2025-02-12] MEDS: SODIUM CHLORIDE 0.9% 500 ML 500 ML IV ONE (21:11)
--- NOTE | 2025-02-12 22:15 | CT ---
EXAMINATION TYPE: CT brain wo con CT DLP: 1170.4 mGycm, Automated exposure control for dose reduction was used. DATE OF EXAM: 02/12/2025 10:01 PM COMPARISON: CT brain 08/09/2022, CT Brain and cspine 09/24/2016 CLINICAL INDICATION:Female, 54 years old with history of Upper extremity weakness, pain TECHNIQUE: Brain: Multiple axial CT images of the brain were obtained without IV contrast. . Coronal and sagitta l reformats reviewed. FINDINGS: Brain: Extra-axial spaces: No abnormal extra-axial fluid collections. Ventricular system: Within normal limits Cerebral parenchyma: No acute intraparenchymal hemorrhage or mass effect. The mar-white junction is well differentiated. Cerebellum: Unremarkable. Mass effect: No evidence of midline shift. Intracranial vasculature: unremarkable Soft tissues: Normal. Calvarium/osseous structures: No depressed skull fracture. Paranasal sinuses and mastoid air cells: Clear. Aplasia of the bilateral frontal sinuses. Visualized orbits: Orbital contents are intact. IMPRESSION: No acute intracranial process. [facility], , 02/12/2025 10:13 PM
--- NOTE | 2025-02-12 23:38 | ED ---
Allergic Reaction HPI - General Chief complaint: Allergic Reaction Stated complaint: allergic reaction Time Seen by Provider: 02/12/25 19:57 Source: patient, family, RN notes reviewed Mode of arrival: wheelchair Limitations: no limitations - History of Present Illness Initial Comments: This is a 54-year-old female who presents to the emergency department for concerns of an allergic reaction. States that she was just prescribed a buprenorphine patch by her neurologist and is concerned that she may be having an allergic reaction. States that she feels like she cannot move her arms, her tongue is swollen, her neck is swollen, and it is making it difficult to speak. She is currently being worked up for multiple conditions including possibly MS, rheumatoid arthritis, fibromyalgia, and other autoimmune issues. States that she feels like her whole body is on fire. She is not giving a clear timeline as she says that some of her symptoms began just this morning and then goes on to say that they have been intermittent for years. She was evaluated here earlier this morning for this and treated with oral prednisone. She was discharged on prednisone 20 mg. States that after getting the oral prednisone her symptoms improved for a short period of time, however the 20 mg was not effective enough. MD Complaint: allergic reaction - Related Data Home Medications Medication Instructions Recorded Confirmed Ondansetron [Zofran] 4 mg PO DAILY PRN 08/08/21 06/13/24 lamoTRIgine [LaMICtal] 100 mg PO DAILY 08/08/21 06/13/24 Oxybutynin Xl [Ditropan XL] 5 mg PO DAILY 08/07/22 06/13/24 Acetaminophen Tab [Tylenol] 650 mg PO Q6H PRN 06/13/24 06/13/24 Atorvastatin [Lipitor] 20 mg PO HS 06/13/24 06/13/24 Ibuprofen [Motrin Ib] 400 mg PO Q6H PRN 06/13/24 06/13/24 Mirtazapine [Remeron] 15 mg PO HS 06/13/24 06/13/24 Pantoprazole [Protonix] 40 mg PO DAILY 06/13/24 06/13/24 Pregabalin [Lyrica] 50 mg PO DAILY PRN 06/13/24 06/13/24 Topiramate [Topamax] 75 mg PO HS 06/13/24 06/13/24 clonazePAM 0.25 mg PO DAILY 06/13/24 06/13/24 Previous Rx's Medication Instructions Recorded Cyclobenzaprine [Flexeril] 10 mg PO HS PRN #7 tab 08/07/22 Dicyclomine [Bentyl] 10 mg PO TID PRN 7 Days #21 cap 06/13/24 predniSONE 50 mg PO DAILY 5 Days #5 tab 02/12/25 predniSONE [Deltasone] 20 mg PO DAILY 4 Days #4 tab 02/12/25 Allergies Allergy/AdvReac Type Severity Reaction Status Date / Time nitrofurantoin Allergy Severe Anaphylaxis Verified 02/12/25 19:26 [From Macrobid] Penicillins Allergy Unknown Verified 02/12/25 19:26 Childhood escitalopram [From Lexapro] AdvReac manic Verified 02/12/25 19:26 orphenadrine [From Norflex] AdvReac abdominal Verified 02/12/25 19:26 pain/burning quetiapine [From Seroquel] AdvReac dizzy/shaky, Verified 02/12/25 19:26 tremors Review of Systems ROS Statement: Those systems with pertinent positive or pertinent negative responses have been documented in the HPI. ROS Other: All systems not noted in ROS Statement are negative. Past Medical History Past Medical History: Neurologic Disorder, Seizure Disorder Additional Past Medical History / Comment(s): 2009 -recurring boil upper rt thigh- pt stated pcp at the [facility] told her it looked like it may be mrsa but pt never got confirmation either way-had area "cut away"and it has'nt retutned..Hx vertigo and gait disorder in 2002,lumbar disc disease hx lower back, neck and shoulder pain, HERNIATED DISCS, HEADACHES-PAIN SHOOTS UP NECK AND INTO SHOULDER BLADES. No seizures in 5 yrs, hx of and KIDNEY STONES. History of Any Multi-Drug Resistant Organisms: None Reported Date of last positivie culture/infection: 2009 MDRO Source:: boil on back of left leg Past Surgical History: Back Surgery, Section, Hysterectomy, Tubal Ligation Additional Past Surgical History / Comment(s): Hx ectopic rupture left ovary and fallopian tube removed, lumbar spinal fusion, herniated bowel repair during spine surgery, march 2016-cervical fusion, lithotriipsy/basketing and stent january 2017, [id number] cystopscopy/lt ureterocopopy w/stent insertion-since removed on 08-27-17 Past Anesthesia/Blood Transfusion Reactions: Motion Sickness, Postoperative Nausea & Vomiting (PONV) Additional Past Anesthesia/Blood Transfusion Reaction / Comment(s): Quite extensive N&V with last proceudre that lasted for a few days. Past Psychological History: Anxiety, Depression Smoking Status: Current every day smoker Past Alcohol Use History: None Reported Past Drug Use History: Marijuana - Past Family History Mother Family Medical History: Hyperlipidemia Father Family Medical History: Cancer Additional Family Medical History / Comment(s): Father from lung ca 1988 General Exam Limitations: no limitations General appearance: alert, in no apparent distress Head exam: Present: atraumatic, normocephalic, normal inspection Eye exam: Present: normal appearance, PERRL, EOMI. Absent: scleral icterus, conjunctival injection, periorbital swelling Respiratory exam: Present: normal lung sounds bilaterally. Absent: respiratory distress, wheezes, rales, rhonchi, stridor Cardiovascular Exam: Present: regular rate, normal rhythm GI/Abdominal exam: Present: soft, normal bowel sounds. Absent: distended, tenderness, guarding, rebound, rigid Neurological exam: Present: alert, oriented X3, CN II-XII intact Psychiatric exam: Present: normal affect, normal mood Skin exam: Present: warm, dry, intact, normal color. Absent: rash Course Vital Signs 02/12/25 02/12/25 02/12/25 19:23 20:00 22:21 Temperature 98.7 F Pulse Rate 116 H 96 92 Respiratory 18 18 18 Rate Blood Pressure 150/92 117/80 108/75 O2 Sat by Pulse 97 94 L 97 Oximetry 02/12/25 23:55 Temperature Pulse Rate 86 Respiratory 18 Rate Blood Pressure 92/52 O2 Sat by Pulse 96 Oximetry Medical Decision Making - Medical Decision Making This is a 54-year-old female who presents to the emergency department for concerns of an allergic reaction. Was pt. sent in by a medical professional or institution? @ -No Did you speak to anyone other than the patient for history? @ -Her reiterated most of the information. Did you review nursing and triage notes? @ -Yes, and I agree, it is accurate with regards to the patient's symptoms. Were old charts reviewed? @ -No Differential Diagnosis? @ -Allergic reaction, fibromyalgia, MS, factitious illness, CVA/TIA EKG interpreted by me (3pts min.)? @ -Not obtained X-rays interpreted by me (1pt min.)? @ -Not obtained CT interpreted by me (1pt min.)? @ -CT scan of the brain obtained. My interpretation identifies no acute intracranial hemorrhage U/S interpreted by me (1pt. min.)? @ -Not obtained What testing was considered but not performed? (CT, X-rays, U/S, labs)? Why? @ -None What meds were considered but not given? Why? @ -None Did you discuss the management of the patient with other professionals? @ -No Did you reconcile home meds? @ -No Was smoking cessation discussed for >3mins.? @ -I discussed smoking cessation for greater than 3 minutes. The risk of smoking were discussed with the patient including but not limited to risks of cancer, stroke, coronary artery disease and COPD. Also discussed with patient were multiple methods of quitting smoking. Lastly we discussed the financial co st of smoking. Was critical care preformed (if so, how long)? @ -No Were there social determinants of health that impacted care today? How? (Homelessness, low income, unemployed, alcoholism, drug addiction, transportation, low edu. Level, literacy, decrease access to med. care, alf, rehab)? @ -No Was there de-escalation of care discussed even if they declined? (Discuss DNR or withdrawal of care, Hospice)? @ -No What co-morbidities impacted this encounter? (DM, HTN, Smoking, COPD, CAD, Cancer, CVA, Hep., AIDS, mental health diagnosis, sleep apnea, morbid obesity)? @ -Smoking, neurologic disorder Was patient admitted / discharged? @ -Discharged. Patient had multiple nonspecific complaints on exam. She said that she could not move her arms, however she had good tone to her arms. She was also altering her speech, which she states has been an intermittent problem for her for years. Patient evaluated at bedside with ED attending, Dr. Gibson as well. Given the duration and intermittent nature of symptoms they were not felt to be consistent with something like a CVA. We did obtain laboratory studies and a CT scan of the brain, which were all unremarkable. She was treated with Decadron and Ativan with improvement in symptoms. States that she could now use her arms again, her only residual complaint was that she was having some cramping in her legs. She does take baclofen at home, but has not taken it in a couple of days. Advised she resume taking the baclofen to see if that offers any benefit. A prescription for a 5-day course of prednisone 50 mg prescribed to be taken in place of the 20 mg that had been prescribed earlier today. Advised she otherwise follow-up with her PCP and neurologist. Patient discharged home in stable condition. Case discussed with ED attending Dr. Gibson. Return precautions reviewed in depth, the patient is instructed to return to the emergency department with any new, worsening, or concerning symptoms. Patient verbalized understanding. Undiagnosed new problem with uncertain prognosis? @ -None Drug Therapy requiring intensive monitoring for toxicity (Heparin, Nitro, Insulin, Cardizem)? @ -None Were any procedures done? @ -None Diagnosis/symptom? @ -Allergic reaction to medication Acute, or Chronic, or Acute on Chronic? @ -Acute Uncomplicated (without systemic symptoms) or Complicated (systemic symptoms)? @ -Uncomplicated Side effects of treatment? @ -None Exacerbation, Progression, or Severe Exacerbation] @ -Not applicable Poses a threat to life or bodily function? @ -No - Lab Data Result diagrams: 02/12/25 20:38 02/12/25 20:38 Lab Results 02/12/25 02/12/25 Range/Units 20:38 20:38 WBC 7.39 (4.50-10.00) 10*3/uL RBC 4.08 L (4.10-5.20) 10*6/uL Hgb 14.6 (12.0-15.0) g/dL Hct 41.0 (37.2-46.3) % MCV 100.5 H (80.0-97.0) fL MCH 35.8 H (27.0-32.0) pg MCHC 35.6 (32.0-37.0) g/dL Plt Count 180 (140-440) 10*3/uL MPV 10.2 (9.5-12.2) fL Immature Gran % (Auto) 0.3 % Neutrophils % 84.3 % Lymphocytes % 13.3 % Monocytes % 1.8 % Eosinophils % 0.0 % Basophils % 0.3 % Immature Gran # 0.02 (0.00-0.04) 10*3/uL Neutrophils # 6.24 (1.80-7.70) 10*3/uL Lymphocytes # 0.98 (0.90-5.00) 10*3/uL Monocytes # 0.13 L (0.20-1.00) 10*3/uL Eosinophils # 0.00 L (0.04-0.35) 10*3/uL Basophils # 0.02 (0.00-0.10) 10*3/uL Sodium 140 (137-145) mmol/L Potassium 4.0 (3.5-5.1) mmol/L Chloride 106 (98-107) mmol/L Carbon Dioxide 22 (22-30) mmol/L Anion Gap 12 mmol/L BUN 9 (7-17) mg/dL Creatinine 0.65 (0.52-1.04) mg/dL Est GFR (CKD-EPI)AfAm >90 (>60 ml/min/1.73 sqM) Est GFR (CKD-EPI)NonAf >90 (>60 ml/min/1.73 sqM) Glucose 119 H (74-99) mg/dL Calcium 10.4 H (8.4-10.2) mg/dL Magnesium 1.9 (1.6-2.3) mg/dL Total Bilirubin 0.6 (0.2-1.3) mg/dL AST 24 (14-36) U/L ALT 25 (4-34) U/L Alkaline Phosphatase 54 (38-126) U/L Total Protein 7.4 (6.3-8.2) g/dL Albumin 4.9 (3.5-5.0) g/dL - Radiology Data Radiology results: report reviewed, image reviewed Disposition Clinical Impression: Allergic reaction to drug, Multiple complaints, Nicotine dependence Disposition: HOME SELF-CARE Additional Instructions: Return to the emergency department with any new, worsening, or concerning symptoms. Take the new prescription of prednisone in place of the one previ ously prescribed for the next 5 days. You can also try resuming your baclofen to see if that helps with your muscle spasms. Follow up with your primary care provider in 1-2 days. Prescriptions: predniSONE 50 mg PO DAILY 5 Days #5 tab Is patient prescribed a controlled substance at d/c from ED?: No Referrals: Zach Washington MD [Primary Care Provider] - 1-2 days Time of Disposition: 23:38
[2025-02-12] MEDS: methylPREDNISolone SOD SUCCI 125 MG/2 ML VIAL IV STA (23:50)
[2025-02-12 23:57] VITALS: BP 92/52; PULSE 86
== END 2025-02-13 00:15 | disposition home or self-care (01) ==
LOC: EC 19:22
DX: T50.995A Adverse effect of other drugs, medicaments and biological substances, initial encounter (principal); F17.200 Nicotine dependence, unspecified, uncomplicated; Z88.0 Allergy status to penicillin; Z88.8 Allergy status to other drugs, medicaments and biological substances; Z88.1 Allergy status to other antibiotic agents
CPT/HCPCS: 36415; 80053; 83735; 85025; 70450; 99284; 96374; 96375; J2060; J1100; J3360; J2919

== ENCOUNTER 2025-02-13 08:54 | Emergency (ER) | payer MEDICARE, OTHER ==
[2025-02-13] MEDS ORDERED: FAMOTIDINE 20 MG/2 ML VIAL IV STA (09:19)
--- NOTE | 2025-02-13 09:21 | ED ---
General Adult HPI - General Chief complaint: Allergic Reaction Stated complaint: abd pain, throat issue Time Seen by Provider: 02/13/25 09:01 Source: patient, RN notes reviewed Mode of arrival: wheelchair Limitations: no limitations - History of Present Illness Initial comments: This is a 54-year-old female with history of fibromyalgia and currently being evaluated for autoimmune disorders with concerns for an allergic reaction. This is patient's third ER visit for the same complaint. As discussed previously patient was prescribed a buprenorphine patch by her neurologist for pain and is concerned that she is having an allergic reaction to this medication although the patch was removed at 04 100 on 02/12/2025. Currently patient states that she is having chest pain and pressure, difficulty in breathing and burning in her back. She was discharged with an increase in her oral prednisone. - Related Data Home Medications Medication Instructions Recorded Confirmed Ondansetron [Zofran] 4 mg PO DAILY PRN 08/08/21 06/13/24 lamoTRIgine [LaMICtal] 100 mg PO DAILY 08/08/21 06/13/24 Oxybutynin Xl [Ditropan XL] 5 mg PO DAILY 08/07/22 06/13/24 Acetaminophen Tab [Tylenol] 650 mg PO Q6H PRN 06/13/24 06/13/24 Atorvastatin [Lipitor] 20 mg PO HS 06/13/24 06/13/24 Ibuprofen [Motrin Ib] 400 mg PO Q6H PRN 06/13/24 06/13/24 Mirtazapine [Remeron] 15 mg PO HS 06/13/24 06/13/24 Pantoprazole [Protonix] 40 mg PO DAILY 06/13/24 06/13/24 Pregabalin [Lyrica] 50 mg PO DAILY PRN 06/13/24 06/13/24 Topiramate [Topamax] 75 mg PO HS 06/13/24 06/13/24 clonazePAM 0.25 mg PO DAILY 06/13/24 06/13/24 Previous Rx's Medication Instructions Recorded Cyclobenzaprine [Flexeril] 10 mg PO HS PRN #7 tab 08/07/22 Dicyclomine [Bentyl] 10 mg PO TID PRN 7 Days #21 cap 06/13/24 predniSONE 50 mg PO DAILY 5 Days #5 tab 02/12/25 predniSONE [Deltasone] 20 mg PO DAILY 4 Days #4 tab 02/12/25 Allergies Allergy/AdvReac Type Severity Reaction Status Date / Time nitrofurantoin Allergy Severe Anaphylaxis Verified 02/13/25 08:58 [From Macrobid] Penicillins Allergy Unknown Verified 02/13/25 08:58 Childhood escitalopram [From Lexapro] AdvReac manic Verified 02/13/25 08:58 orphenadrine [From Norflex] AdvReac abdominal Verified 02/13/25 08:58 pain/burning quetiapine [From Seroquel] AdvReac dizzy/shaky, Verified 02/13/25 08:58 tremors Review of Systems ROS Statement: Those systems with pertinent positive or pertinent negative responses have been documented in the HPI. ROS Other: All systems not noted in ROS Statement are negative. Past Medical History Past Medical History: Neurologic Disorder, Seizure Disorder Additional Past Medical History / Comment(s): 2009 -recurring boil upper rt thigh- pt stated pcp at the [facility] told her it looked like it may be mrsa but pt never got confirmation either way-had area "cut away"and it has'nt retutned..Hx vertigo and gait disorder in 2002,lumbar disc disease hx lower back, neck and shoulder pain, HERNIATED DISCS, HEADACHES-PAIN SHOOTS UP NECK AND INTO SHOULDER BLADES. No seizures in 5 yrs, hx of and KIDNEY STONES. History of Any Multi-Drug Resistant Organisms: None Reported Date of last positivie culture/infection: 2009 MDRO Source:: boil on back of left leg Past Surgical History: Back Surgery, Section, Hysterectomy, Tubal Ligation Additional Past Surgical History / Comment(s): Hx ectopic rupture left ovary and fallopian tube removed, lumbar spinal fusion, herniated bowel repair during spine surgery, march 2016-cervical fusion, lithotriipsy/basketing and stent january 2017, cystopscopy/lt ureterocopopy w/stent insertion-since removed on 08-27-17 Past Anesthesia/Blood Transfusion Reactions: Motion Sickness, Postoperative Nausea & Vomiting (PONV) Additional Past Anesthesia/Blood Transfusion Reaction / Comment(s): Quite e xtensive N&V with last proceudre that lasted for a few days. Past Psychological History: Anxiety, Depression Smoking Status: Current every day smoker Past Alcohol Use History: None Reported Past Drug Use History: Marijuana - Past Family History Mother Family Medical History: Hyperlipidemia Father Family Medical History: Cancer Additional Family Medical History / Comment(s): Father from lung ca 1988 General Exam Limitations: no limitations General appearance: alert, in no apparent distress Eye exam: Present: normal appearance, PERRL, EOMI. Absent: scleral icterus, conjunctival injection, periorbital swelling ENT exam: Present: normal exam, mucous membranes moist Neck exam: Present: normal inspection. Absent: tenderness, meningismus, lymphadenopathy Respiratory exam: Present: normal lung sounds bilaterally. Absent: respiratory distress, wheezes, rales, rhonchi, stridor Cardiovascular Exam: Present: regular rate, normal rhythm, normal heart sounds. Absent: systolic murmur, diastolic murmur, rubs, gallop, clicks GI/Abdominal exam: Present: soft, normal bowel sounds. Absent: distended, tenderness, guarding, rebound, rigid Back exam: Present: normal inspection Skin exam: Present: warm, dry, intact, normal color. Absent: rash Course Vital Signs 02/13/25 02/13/25 02/13/25 08:56 10:32 11:43 Temperature 99.3 F Pulse Rate 141 H 113 H 90 Respiratory 17 22 Rate Blood Pressure 141/79 116/75 O2 Sat by Pulse 96 96 Oximetry 02/13/25 11:59 Temperature Pulse Rate 100 Respiratory Rate Blood Pressure O2 Sat by Pulse Oximetry Medical Decision Making - Medical Decision Making Was pt. sent in by a medical professional or institution ([facility], [employer], urgent care, hospital, or senior living...) When possible be specific @ -No Did you speak to anyone other than the patient for history (EMS, parent, family, police, friend...)? What history was obtained from this source @ -No Did you review nursing and triage notes (agree or disagree)? Why? @ -I reviewed and agree with nursing and triage notes Were old charts reviewed (outside hosp., previous admission, EMS record, old EKG, old radiological studies, urgent care reports/EKG's, senior living records)? Report findings @ -No old charts were reviewed Differential Diagnosis (chest pain, altered mental status, abdominal pain women, abdominal pain men, vaginal bleeding, weakness, fever, dyspnea, syncope, headache, dizziness, GI bleed, back pain, seizure, CVA, palpatations, mental health, musculoskeletal)? @ -Differential Dyspnea: Coronary syndrome, arrhythmia, tamponade, asthma, COPD, pulmonary embolism, pneumonia, pneumothorax, pulmonary effusion, anaphylaxis, diabetic ketoacidosis, flailed chest, pulmonary contusion, diaphragmatic rupture, anemia, neuromuscular, this is not meant to be an all-inclusive list. EKG interpreted by me (3pts min.). @ -Completed at 908 sinus tachycardia with a ventricular rate of 106, MO interval 140, QRS 78, QT 306, QTc 368. X-rays interpreted by me (1pt min.). @ -Chest x-ray completed no acute cardiopulmonary process or disease. CT interpreted by me (1pt min.). @ -None done U/S interpreted by me (1pt. min.). @ -None done What testing was considered but not performed or refused? (CT, X-rays, U/S, labs)? Why? @ -None What meds were considered but not given or refused? Why? @ -None Did you discuss the management of the patient with other professionals (professionals i.e. , PA, P[employer]AGING TE[employer], lab, RT, psych nurse, social media developer, business services specialist sales, te acher, learning officer, family independence case manager)? Give summary @ -No Was smoking cessation discussed for >3mins.? @ -No Was critical care preformed (if so, how long)? @ -No Were there social determinants of health that impacted care today? How? (Homelessness, low income, unemployed, alcoholism, drug addiction, transportation, low edu. Level, literacy, decrease access to med. care, group home, rehab)? @ -No Was there de-escalation of care discussed even if they declined (Discuss DNR or withdrawal of care, Hospice)? DNR status @ -No What co-morbidities impacted this encounter? (DM, HTN, Smoking, COPD, CAD, Cancer, CVA, ARF, Chemo, Hep., AIDS, mental health diagnosis, sleep apnea, morbid obesity)? @ -None Was patient admitted / discharged? Hospital course, mention meds given and route, prescriptions, significant lab abnormalities, going to OR and other pertinent info. @ -Discharge. 54-year-old male presents emergency room with concerns of difficulty breathing, chest pain and concerns for allergic action. This is patient's third visit within the past 36 hours for the same complaint. Patient is tachycardic on arrival and noted to be extremely anxious and having increased respiratory rate. However she is well-appearing and no signs of respiratory distress. There is no soft palate swelling/edema, tongue or lip swelling. Patient is not hypoxic and is able to articulate full sentences. Patient was offered dose of Ativan for anxiety in addition to Pepcid and Benadryl, however she refused the ativan and pepcid. EKG sinus rhythm. Patient's laboratory testing is unremarkable including CBC, CMP, coagulation and troponin. On reevaluation patient states that she is feeling well. Patient is still extremely anxious however discussion with patient that half of the medication and there is no signs of an anaphylactic or life-threatening reaction to the medication. Case discussed with Dr. Duke Undiagnosed new problem with uncertain prognosis? @ -No Drug Therapy requiring intensive monitoring for toxicity (Heparin, Nitro, Insulin, Cardizem)? @ -No Were any procedures done? @ -No Diagnosis/symptom? @ -anxiety, medication reaction Acute, or Chronic, or Acute on Chronic? @ -acute Uncomplicated (without systemic symptoms) or Complicated (systemic symptoms)? @ -uncomplicated Side effects of treatment? @ -No Exacerbation, Progression, or Severe Exacerbation? @ -No Poses a threat to life or bodily function? How? (Chest pain, [place], [place], pneumonia, PE, COPD, DKA, ARF, appy, cholecystitis, CVA, Diverticulitis, Homicidal, Suicidal, threat to staff... and all critical care pts) @ -No - Lab Data Result diagrams: 02/13/25 10:00 02/13/25 10:00 Lab Results 02/13/25 02/13/25 02/13/25 Range/Units 10:00 10:00 10:00 WBC 11.61 H (4.50-10.00) 10*3/uL RBC 4.06 L (4.10-5.20) 10*6/uL Hgb 14.4 (12.0-15.0) g/dL Hct 40.6 (37.2-46.3) % MCV 100.0 H (80.0-97.0) fL MCH 35.5 H (27.0-32.0) pg MCHC 35.5 (32.0-37.0) g/dL Plt Count 187 (140-440) 10*3/uL MPV 10.2 (9.5-12.2) fL Immature Gran % (Auto) 0.3 % Neutrophils % 87.3 % Lymphocytes % 9.5 % Monocytes % 2.8 % Eosinophils % 0.0 % Basophils % 0.1 % Immature Gran # 0.04 (0.00-0.04) 10*3/uL Neutrophils # 10.14 H (1.80-7.70) 10*3/uL Lymphocytes # 1.10 (0.90-5.00) 10*3/uL Monocytes # 0.32 (0.20-1.00) 10*3/uL Eosinophils # 0.00 L (0.04-0.35) 10*3/uL Basophils # 0.01 (0.00-0.10) 10*3/uL PT 10.8 (10.0-12.5) sec INR 1.0 (<1.2) APTT 20.5 L (22.0-30.0) sec Sodium 140 (137-145) mmol/L Potassium 3.9 (3.5-5.1) mmol/L Chloride 109 H (98-107) mmol/L Carbon Dioxide 23 (22-30) mmol/L Anion Gap 8 mmol/L BUN 12 (7-17) mg/dL Creatinine 0.68 (0.52-1.04) mg/dL Est GFR (CKD-EPI)AfAm >90 (>60 ml/min/1.73 sqM) Est GFR (CKD-EPI)NonAf >90 (>60 ml/min/1.73 sqM) Glucose 141 H (74-99) mg/dL Calcium 10.3 H (8.4-10.2) mg/dL Magnesium 1.9 (1.6-2.3) mg/dL Total Bilirubin 0.7 (0.2-1.3) mg/dL AST 19 (14-36) U/L ALT 23 (4-34) U/L Alkaline Phosphatase 54 (38-126) U/L Troponin I (0.000-0.034) ng/mL Total Protein 7.2 (6.3-8.2) g/dL Albumin 4.7 (3.5-5.0) g/dL Lipase 55 (23-300) U/L 05/16/ Range/Units 10:00 WBC (4.50-10.00) 10*3/uL RBC (4.10-5.20) 10*6/uL Hgb (12.0-15.0) g/dL Hct (37.2-46.3) % MCV (80.0-97.0) fL MCH (27.0-32.0) pg MCHC (32.0-37.0) g/dL Plt Count (140-440) 10*3/uL MPV (9.5-12.2) fL Immature Gran % (Auto) % Neutrophils % % Lymphocytes % % Monocytes % % Eosinophils % % Basophils % % Immature Gran # (0.00-0.04) 10*3/uL Neutrophils # (1.80-7.70) 10*3/uL Lymphocytes # (0.90-5.00) 10*3/uL Monocytes # (0.20-1.00) 10*3/uL Eosinophils # (0.04-0.35) 10*3/uL Basophils # (0.00-0.10) 10*3/uL PT (10.0-12.5) sec INR (<1.2) APTT (22.0-30.0) sec Sodium (137-145) mmol/L Potassium (3.5-5.1) mmol/L Chloride (98-107) mmol/L Carbon Dioxide (22-30) mmol/L Anion Gap mmol/L BUN (7-17) mg/dL Creatinine (0.52-1.04) mg/dL Est GFR (CKD-EPI)AfAm (>60 ml/min/1.73 sqM) Est GFR (CKD-EPI)NonAf (>60 ml/min/1.73 sqM) Glucose (74-99) mg/dL Calcium (8.4-10.2) mg/dL Magnesium (1.6-2.3) mg/dL Total Bilirubin (0.2-1.3) mg/dL AST (14-36) U/L ALT (4-34) U/L Alkaline Phosphatase (38-126) U/L Troponin I <0.012 (0.000-0.034) ng/mL Total Protein (6.3-8.2) g/dL Albumin (3.5-5.0) g/dL Lipase (23-300) U/L Disposition Clinical Impression: Acute anxiety, Medication reaction Disposition: HOME SELF-CARE Condition: Stable Additional Instructions: Please return to the Emergency Department if symptoms worsen or any other concerns. Is patient prescribed a controlled substance at d/c from ED?: No Referrals: Zach Washington MD [Primary Care Provider] - 1-2 days Time of Disposition: 12:18
[2025-02-13 10:05] LABS: Basophils # (A) 0.01 10*3/uL (0.00-0.10); Basophils % (A) 0.1 %; HCT 40.6 % (37.2-46.3); HGB 14.4 g/dL (12.0-15.0); Lymphocytes % (A) 9.5 %; MCH 35.5 pg (27.0-32.0); MCHC 35.5 g/dL (32.0-37.0); Mean Platelet Volume 10.2 fL (9.5-12.2); Monocytes # (A) 0.32 10*3/uL (0.20-1.00); Monocytes % (A) 2.8 %; Neutrophils # (A) 10.14 10*3/uL (1.80-7.70); Neutrophils % (A) 87.3 %; Platelet Count 187 10*3/uL (140-440); RBC 4.06 10*6/uL (4.10-5.20); RDW 11.7 % (11.5-14.5); WBC 11.61 10*3/uL (4.50-10.00)
[2025-02-13 10:15] LABS: Prothrombin Time 10.8 sec (10.0-12.5)
[2025-02-13 10:17] LABS: ALT 23 U/L (4-34); AST 19 U/L (14-36); African American GFR (CKD) >90 (>60 ml/min/1.73 sqM); Albumin 4.7 g/dL (3.5-5.0); Alkaline Phosphatase 54 U/L (38-126); Anion Gap 8 mmol/L; Blood Urea Nitrogen 12 mg/dL (7-17); Calcium 10.3 mg/dL (8.4-10.2); Carbon Dioxide 23 mmol/L (22-30); Chloride 109 mmol/L (98-107); Glucose 141 mg/dL (74-99); Lipase 55 U/L (23-300); Magnesium 1.9 mg/dL (1.6-2.3); Non-African American GFR(CKD) >90 (>60 ml/min/1.73 sqM); Potassium 3.9 mmol/L (3.5-5.1); Sodium 140 mmol/L (137-145); Total Bilirubin 0.7 mg/dL (0.2-1.3); Total Protein 7.2 g/dL (6.3-8.2)
[2025-02-13 10:22] LABS: Partial Thromboplastin Time 20.5 sec (22.0-30.0)
[2025-02-13] MEDS: diphenhydrAMINE 50 MG/ML 1 ML VIAL IVP STA (10:28)
[2025-02-13] MEDS: LORazepam 1 MG/0.5 ML VIAL IV STA (10:31)
--- NOTE | 2025-02-13 11:19 | XR ---
EXAMINATION TYPE: XR chest 2V DATE OF EXAM: 02/13/2025 10:54 AM COMPARISON: Chest radiographs from 11/13/2024 CLINICAL INDICATION: Female, 54 years old with history of tachy, chest pain; [facility] TECHNIQUE: XR chest 2V Frontal and lateral views of the chest. FINDINGS: Lungs/Pleura: There is no evidence of pleural effusion, focal consolidation, or pneumothorax. Pulmonary vascularity: Unremarkable. Heart/mediastinum: Cardiomediastinal silhouette is unremarkable. Musculoskeletal: No acute osseous pathology. Other findings: None IMPRESSION: No acute cardiopulmonary disease/process. [facility], , 02/13/2025 11:16 AM
[2025-02-13] MEDS: IPRATROPIUM-ALBUTEROL 3 ML NEB INHALATION STA (11:41)
[2025-02-13 15:48] VITALS: BP 119/73; PULSE 106; RESP 22; TEMP 98.1
== END 2025-02-13 12:25 | disposition home or self-care (01) ==
LOC: EC 08:54
DX: F41.9 Anxiety disorder, unspecified (principal); T40.495A Adverse effect of other synthetic narcotics, initial encounter; R00.0 Tachycardia, unspecified; F17.200 Nicotine dependence, unspecified, uncomplicated; Z88.0 Allergy status to penicillin; Z88.1 Allergy status to other antibiotic agents; Z88.8 Allergy status to other drugs, medicaments and biological substances
CPT/HCPCS: 36415; 94640; 80053; 83690; 83735; 84484; 85025; 85610; 85730; 71046; 99284; 96374; J1200

== ENCOUNTER → 2025-03-22 | Outpatient (CLI) | payer MEDICARE, OTHER ==
--- NOTE | 2025-03-22 19:49 | MR ---
INDICATION: Patient age:Female; 54 years old; Reason for study: G45.9; [facility]. COMPARISON: CT brain 02/12/2025, 08/09/2022. TECHNIQUE: Multi planar, multi sequence imaging was performed through the brain without the administr ation of intravenous contrast. FINDINGS: The mar-white junctions, ventricular system, basal cisterns appear unremarkable. Age-appropriate cer ebral parenchymal volume. Diffusion-weighted imaging shows no evidence of restricted diffusion to sug gest acute/subacute infarct. Intracranial arterial flow voids are maintained. Midline structures show no abnormality. Scattered patchy foci of high T2/FLAIR signal intensity are seen within the subcorti yessica white matter. Approximately 10 lesions. The susceptibility weighted images do not reveal any evid ence for micro-hemorrhage. The bone marrow signal is within normal limits. The globes are unremarkable. Mild mucosal thickening in the posterior right ethmoid sinus. IMPRESSION: 1. No evidence of intracranial mass or acute/subacute infarct. 2. Nonspecific mild white matter changes, likely related to small vessel ischemic disease. Demyelinat ing disease, chronic migraines, vasculitis, Lyme disease are other considerations. [facility], , 03/22/2025 7:47 PM
== END | disposition home or self-care (01) ==
LOC: RADMRIMAIN 19:30
PROVIDERS: ATTEND Psychiatry & Neurology Neurology
DX: G45.9 Transient cerebral ischemic attack, unspecified (principal); G43.909 Migraine, unspecified, not intractable, without status migrainosus; M79.10 Myalgia, unspecified site; A69.20 Lyme disease, unspecified; G37.9 Demyelinating disease of central nervous system, unspecified
CPT/HCPCS: 70551